=== PATIENT | male | born 1955 | race Caucasian/White ===

== ENCOUNTER 2024-03-23 07:30 | Day surgery (SDC) | payer MEDICARE, SELFPAY ==
[2024-03-23] VITALS (14 sets, daily range): BP systolic 90–113; BP diastolic 55–67; BMI 36.4
[2024-03-23] MEDS: NSS 365 ML IV (08:23)
--- NOTE | 2024-03-23 11:18 | ITS.CL.CATH ---
[facility] - Catheterization
Cardiac Catheterization
Procedure Report:
CARDIAC CATHETERIZATION REPORT
Date of Procedure: 03/23/2024
Referring: Aashish Avila D.O.
Indication: Severe aortic valve stenosis.
PROCEDURE:
1. Right heart catheterization.
2. Left heart catheterization.
3. Coronary angiography.
4. Aortic valve interrogation.
ACCESS:
6 Cypriot right radial artery.
5 Cypriot right antecubital vein.
CATHETERS:
1. 5 Cypriot balloon wedge.
2. 5 Cypriot JL 3.5.
3. 5 Cypriot multipurpose.
4. 6 Cypriot Fernando dual-lumen pigtail catheter.
HEMODYNAMIC DATA
Weight (kg): 121.8
AO (s/d/x mmHg): 101/70/84
LV (s/x mmHg): 157/23
PCWP (a/v/x mmHg): 28/32/23
PA (s/d/x mmHg): 43/24/30
RV (s/x mmHg): 43/16
RA (a/v/x mmHg): 17/18/16
SVC SvO2 (%): 69.6
PA SvO2 (%): 69.1
SaO2 (%): 95.2
Hbg (g/dL): 12.7
CO (L/min): 6.04
CI (L/min/m2): 2.50
TPG (mmHg): 7
PVR (Avila Units): 1.16
SVR (dynes*seconds*cm^-5): 901
AVO2 Diff (Volume %): 4.51
AV gradient (x, mmHg): 44.9
AV area (cm2): 0.86
LEFT VENTRICULOGRAPHY: Not performed.
CORONARY ANGIOGRAPHY
Dominance: Right.
Left Main: Normal size, bifurcating vessel. There is no coronary artery disease.
LAD: Large size vessel giving rise to 2 diagonals before wrapping around the apex. There is no coronary artery disease.
Ramus: Congenitally absent.
Circumflex: Large size, nondominant vessel giving rise to 2 obtuse marginals before terminating as a left posterolateral branch. There is no coronary artery disease.
RCA: Normal size, dominant vessel with a low, anterior takeoff. Prior cardiac catheterization required multipurpose catheter as the JR catheter would continuously cannulate the conus branch. Multipurpose catheter used for this engagement.
There is no coronary artery disease.
INTERVENTIONS
None.
Closure Device: Vascular band for the right radial artery, manual pressure for the right antecubital vein.
Radiation dose (mGy): 466.60
DAP (cm2.Gy): 31.9020
Fluoroscopy time (minutes): 5.9
Sedation time (minutes): 12
CONCLUSIONS:
1. Right dominant circulation with a low, anterior takeoff of the right coronary artery requiring a multipurpose catheter for engagement, but no coronary artery disease in either the right or left system.
2. Severe aortic valve stenosis.
3. Moderately elevated filling pressures (LVEDP = 23 mmHg, PCWP = 23 mmHg at 121.8 kg).
4. Mild pulmonary hypertension, WHO group 2.
RECOMMENDATIONS:
1. Expectant management after cardiac catheterization via right rate approach.
2. Limited weight bearing on the right wrist for one week.
3. Referral to CT surgery for evaluation of surgical aortic valve replacement and evaluation of the ascending aorta.
Copy to: Juan Meraz M.D., Aashish Avila D.O., Elba AltamiranoO.
Aashish Avila, DO, FACC, FACP
== END 2024-03-23 13:00 | disposition home or self-care (01) ==
LOC: CATH 07:30
PROVIDERS: ATTENDING PHYSICIAN Internal Medicine Cardiovascular Disease; CONSULT PHYSICIAN Thoracic Surgery (Cardiothoracic Vascular Surgery); FAMILY PHYSICIAN Family Medicine
DX: I35.0 Nonrheumatic aortic (valve) stenosis (principal); R06.00 Dyspnea, unspecified; I27.22 Pulmonary hypertension due to left heart disease; E78.2 Mixed hyperlipidemia; I45.10 Unspecified right bundle-branch block; Z85.47 Personal history of malignant neoplasm of testis; E66.9 Obesity, unspecified; Z68.36 Body mass index [BMI] 36.0-36.9, adult; Z79.82 Long term (current) use of aspirin
CPT/HCPCS: 93460; C1769; C1894

== ENCOUNTER → 2024-05-14 07:46 | Outpatient (REF) | payer MEDICARE, SELFPAY | LOC: RAD 07:46 | PROVIDERS: ATTENDING PHYSICIAN Thoracic Surgery (Cardiothoracic Vascular Surgery); FAMILY PHYSICIAN Family Medicine | DX: I77.810 Thoracic aortic ectasia (principal); I35.0 Nonrheumatic aortic (valve) stenosis; Z01.818 Encounter for other preprocedural examination | CPT/HCPCS: 71275; Q9967 ==

== ENCOUNTER 2024-05-18 04:52 | Inpatient (IN) | payer MEDICARE, SELFPAY ==
[2024-05-05 08:44] VITALS: BMI 36.4
[2024-05-05 09:11] LABS: Urine Albumin Negative (Neg - Trace); Urine Bilirubin Negative (Negative); Urine Character Clear (Clear); Urine Color Yellow; Urine Glucose Negative (Negative); Urine Ketone Negative (Negative); Urine Leukocyte Trace (Negative); Urine Nitrite Negative (Negative); Urine Occult Blood Negative (Negative); Urine Urobilinogen Negative (Neg - 1+)
[2024-05-05 09:13] LABS: % Basophils 0.3 % (0-2); % Eosinophils 3.3 % (0-6); % Immature Granulocytes 0.3 % (0-0.5); % Lymphocytes 26.1 % (20.5-51.1); Absolute Eosinophils 0.1 10^3/uL (0-0.7); Absolute Monocytes 0.4 10^3/uL (0.1-0.6); Absolute Neutrophils 2.4 10^3/uL (1.4-6.5); Hematocrit 36.3 % (39.0-52.0); Hemoglobin 12.4 g/dL (13.0-18.0); Mean Corp Hgb Conc. 34.2 g/dL (33.0-37.0); Mean Corpuscular Hgb 30.5 pg (27.0-31.0); Mean Corpuscular Volume 89.4 fL (80.0-94.0); Mean Platelet Volume 9.7 fL (7.4-10.4); Nucleated Red Blood Cells % 0 % (-); Platelet Count 145 10^3/uL (130-400); Red Blood Cell Count 4.06 10^6/uL (4.70-6.10); Red Cell Dist. Width 13.2 % (11.5-14.5)
[2024-05-05 09:21] LABS: Urine White Cell 0-2 /HPF (0-5)
[2024-05-05 09:22] LABS: Urine Red Blood Cell 0-2 /HPF (0-2)
[2024-05-05 09:23] LABS: INR 1.04; PT 13.5 Sec (11.4-14.6)
[2024-05-05 09:23] LABS: Urine Squamous Cell 0-2 /LPF (Few)
[2024-05-05 09:24] LABS: APTT 31.3 Sec (23.4-35.0)
[2024-05-05 09:29] LABS: ALT (SGPT) 36 U/L (0-50); AST (SGOT) 30 U/L (17-59); Albumin 3.9 g/dl (3.5-5.0); Alkaline Phosphatase 67 U/L (38-126); Blood Urea Nitrogen 25 mg/dl (9-20); Calcium 9.2 mg/dl (8.4-10.2); Carbon Dioxide 28 mmol/L (22-30); Chloride 99 mmol/L (98-107); Direct Bilirubin 0.3 mg/dl (0.0-0.4); Estimated Creatinine Clearance > 125 ml/min; Glucose 101 mg/dl (70-99); Potassium 4.3 mmol/L (3.5-5.1); Sodium 137 mmol/L (135-145); Total Bilirubin 0.6 mg/dl (0.2-1.3); Total Protein 6.5 g/dl (6.3-8.2); eGFR > 60.00
--- NOTE | 2024-05-05 11:12 | CM ---
spoke to pt in room, he is prev indep, lives with his in a 1 story duplex with 3 steps to enter. he denies any dme's. he is agreeable to a f/u visit fro the ct transitional care nurse after dc. he has the cardiac educ book, soap and
instructions. cm role explained and all questions answered. plan is for dc to home when medically stable.
[2024-05-05 12:23] LABS: Glycohemoglobin (HgbA1c) 6.1 % (4.0-5.6)
[2024-05-18] VITALS (11 sets, daily range): BP systolic 86–116; BP diastolic 58–78; BMI 35.6
--- NOTE | 2024-05-18 06:20 | PTCARENOTE ---
Patient arrived to room 2261 with enterprise security architect. Steady gait. Patient A+A+Ox3. No neurological deficits noted. No c/o pain or discomfort. Patient confirmed NPO status after midnight. Patient confirmed taking 4% Chlorhexidine shower last
night and this morning. Patient clipped and prepped per protocol. G wipes. Admission questions and medication reconciliation completed. Pre-op medications administered. Dr. Meraz arrived to talk with patient. Patient resting in bed. On
call to OR.
[2024-05-18] MEDS: BACTROBAN 2% OINTMENT 1 APPLIC NASAL ×2 (06:24→19:54)
[2024-05-18] MEDS: LOPRESSOR 25 MG PO (06:24)
[2024-05-18] MEDS: MAGNESIUM OXIDE 500 MG PO (06:26)
[2024-05-18] MEDS: PROTONIX 40 MG PO (06:26)
--- NOTE | 2024-05-18 06:33 | W.CVOR.SURPR ---
CVOR Surgeon Immed Pre Op
-
I have examined this patient prior to performance of the scheduled procedure.
The patient's condition is unchanged from the time of the dictated/written History and
Physical and the patient is able to undergo the scheduled procedure.
[2024-05-18 08:09] LABS: Urine Albumin Negative (Neg - Trace); Urine Bilirubin Negative (Negative); Urine Character Clear (Clear); Urine Color Yellow; Urine Glucose Negative (Negative); Urine Ketone Negative (Negative); Urine Leukocyte Negative (Negative); Urine Nitrite Negative (Negative); Urine Occult Blood Trace (Negative); Urine Urobilinogen Negative (Neg - 1+)
[2024-05-18 08:16] LABS: ACT+ - POC 98 Seconds (82-134)
[2024-05-18 08:18] LABS: Glucose - POC 109 mg/dl (65-99); HCO3 - POC 26 mmol/L (21-29); Hematocrit - POC 35 % PCV (42-52); Hemodilution- POC No; Hemoglobin Calculated - POC 11.8; Ionized Calcium - POC 1.21 mmol/L (1.12-1.27); O2 Saturation %Calculated-POC 99.8 5 (92-96); PCO2 - POC 40 mmHg (35-45); PO2 - POC 239 mmHg (80-100); POC Comment PRE; Potassium - POC 3.7 mmol/L (3.6-5.0); Sodium - POC 140 mmol/L (135-145); pH - POC 7.41 (7.35-7.45)
[2024-05-18 08:33] LABS: Urine Squamous Cell 0-2 /LPF (Few)
[2024-05-18 08:34] LABS: Urine White Cell 0-2 /HPF (0-5)
--- NOTE | 2024-05-18 09:06 | CM ---
pt in OR today, cm to follow
[2024-05-18 09:12] LABS: ACT+ - POC 940 Seconds (82-134)
[2024-05-18 09:49] LABS: B.E. - POC 4.5 mmol/L; Glucose - POC 123 mg/dl (65-99); HCO3 - POC 28 mmol/L (21-29); Hematocrit - POC 29 % PCV (42-52); Hemodilution- POC Yes; Hemoglobin Calculated - POC 9.8; Ionized Calcium - POC 1.07 mmol/L (1.12-1.27); PCO2 - POC 37 mmHg (35-45); PO2 - POC 348 mmHg (80-100); POC Comment CPB; Potassium - POC 4.7 mmol/L (3.6-5.0); Sodium - POC 138 mmol/L (135-145); pH - POC 7.48 (7.35-7.45)
[2024-05-18 09:55] LABS: ACT+ - POC 778 Seconds (82-134)
[2024-05-18 10:34] LABS: ACT+ - POC 631 Seconds (82-134)
[2024-05-18 10:35] LABS: B.E. - POC 3.2 mmol/L; Glucose - POC 153 mg/dl (65-99); HCO3 - POC 27 mmol/L (21-29); Hematocrit - POC 28 % PCV (42-52); Hemodilution- POC Yes; Hemoglobin Calculated - POC 9.6; Ionized Calcium - POC 1.13 mmol/L (1.12-1.27); O2 Saturation %Calculated-POC 99.8 5 (92-96); PCO2 - POC 39 mmHg (35-45); PO2 - POC 214 mmHg (80-100); POC Comment CPB; Potassium - POC 4.8 mmol/L (3.6-5.0); Sodium - POC 138 mmol/L (135-145); pH - POC 7.46 (7.35-7.45)
--- NOTE | 2024-05-18 11:04 | CON.INTV ---
Consultation
Consultation Request
Date/Time Consultation Requested: 05-18-24
Date/Time Consultation Performed: 05-18-24
Requesting Provider: Dr Meraz
Performing Provider: Dr Hoffman
Reason for Consultation: s/p AVR and asc Ao replacement
Medical History
-
Chief Complaint: s/p AVR
History of Present Illness:
Mr. Johnny Giraldo is a 68/M adm 05-18 for planned AVR.
Known h/o severe with SELINA 0.86 and no evidence of CAD on [facility].
Seen at office by Dr Meraz, rec AVR and potentially asc Ao replacement.
Seen at CVICU, on MV, recovering from anesthesia. Seen in presence of RESTAURANT GENERAL MANAGER
Past Medical History
Past Medical History: Other (see A&P for PMH/PSH)
Social History
Tobacco: Non-smoker
Alcohol: Occasional
Drug: None
Personal:
Living: With Family
Employment: Retired
Family History
Family History: CAD (F: AMI at 53)
Allergies / Home Medications
Allergies
Allergy/AdvReac Type Severity Reaction Status Date / Time
erythromycin base Allergy Intermediate Nausea Verified 05/18/24 06:13
Penicillins Allergy Rash Verified 04/29/24 12:14
Sulfa (Sulfonamide Allergy Rash Verified 04/29/24 12:14
Antibiotics)
azithromycin AdvReac Nausea Verified 04/29/24 12:14
Home Medications
�Medication �Instructions �Recorded �Confirmed �Last Taken �Type
aspirin 81 mg chewable tablet 81 mg PO DAILY 12/07/21 05/18/24 05/17/24 09:00 History
81 MG
atorvastatin 40 mg tablet 40 mg PO DAILY 12/07/21 05/18/24 05/17/24 22:00 History
40 MG
fexofenadine 180 mg tablet 180 mg PO DAILY 12/07/21 05/18/24 05/17/24 09:00 History
180 mg
phenylephrine HCl 10 mg tablet 10 mg PO TIDPRN PRN allergies/post 12/07/21 05/18/24 05/17/24 22:00 History
(Sudafed PE) nasal drip 10 mg
tadalafil 5 mg tablet 5 mg PO DAILY@1600 12/07/21 05/18/24 05/15/24 22:00 History
5 mg
valacyclovir 500 mg tablet 500 mg PO DAILY 12/07/21 05/18/24 05/17/24 09:00 History
500 mg
coenzyme Q10 200 mg capsule (Co 200 mg PO DAILY 03/23/24 05/18/24 05/17/24 22:00 History
Q-10) 200 mg
metoprolol succinate 25 mg 25 mg PO DAILY 03/23/24 05/18/24 05/17/24 22:00 History
tablet,extended release 24 hr 25 mg
sfoudkes-vky-pkasl acid 0.4 1 tab PO DAILY 03/23/24 05/18/24 05/17/24 09:00 History
mg-lycopene 300 mcg-lutein 250 mcg 1 Tab
tablet (Centrum Silver)
omega 0-lrs-fke-fish oil 1,200 mg 1 cap PO DAILY 03/23/24 05/18/24 05/17/24 09:00 History
(144 mg-216 mg) capsule (Fish Oil) 1200 mg
tamsulosin 0.4 mg capsule 0.4 mg PO DAILY 03/23/24 05/18/24 05/15/24 22:00 History
0.4mg
Medical Cannibus 1 dose PO PRN PRN anxiety, pain 04/29/24 05/18/24 05/08/24 19:00 History
1 joint
ibuprofen 200 mg tablet 200 mg PO Daily 05/18/24 05/18/24 05/17/24 09:00 History
200 mg
Review of Systems
-
Unable to Obtain full review of systems at this time due to: Patient Intubation
Vitals / Labs / Diagnostic Testing
Vital Signs
Temp Pulse Resp BP Pulse Ox
98.8 F 80 16 104/70 98
05/18/24 05:35 05/18/24 06:24 05/18/24 05:35 05/18/24 06:24 05/18/24 05:35
Lab Data
05/05/24 08:56
05/05/24 08:56
Diagnostic Testing:
Physical Exam
-
HEENT: Normocephalic, Moist Mucous Membranes and Other (YARELY)
Cardiovascular: Regular Rhythm, Peripheral Edema (n) and Other (RIJ cordis)
Respiratory: Clear and Non-Labored Respirations
GI: Soft and Non Distended
Neurology: Other (sedated)
Skin: Warm
General: Respiratory Distress (n)
Assessment
-
Assessment:
Mr. Johnny Giraldo is a 68/M adm 05-18 for planned AVR. Known h/o severe with SELINA 0.86 and no evidence of CAD on [facility]. Seen at office by Dr Meraz, rec AVR and potentially asc Ao replacement. Seen at CVICU, on MV, recovering from anesthesia. Seen
in presence of RESTAURANT GENERAL MANAGER
Impression:
Moderate to severe , SELINA 0.86 (negative [facility] 03-23-24)
S/p AVR and asc Ao replacement 05-18
Conditions SPECIALTY DEVELOPMENT CONSULTANT:
Prediabetes
COVID pneumonia
HLD
BPH
H/o testicular cancer
Nonsmoker
Plan:
Ventilator settings reviewed
SIMV: 14-550-5-0.4 (POx 100%)
FiO2 will be weaned
Minute ventilation will be adjusted
Arterial blood gases will be monitored
Spontaneous breathing trial will be attempted with hopeful extubation after anesthesia/sedation wear off
Postop CXR: portable, ETT, RIJ line, sternal wiring, chest tubes
Normal preop spirometry 05-05-24
Pressors/antihypertensive/inotropes/diuretics will be provided as needed
Monitor chest tube output
Monitor hemoglobin
Monitor platelet count and coags
Transfuse blood product if needed
CT surgery following chest tubes
Monitor blood sugar
Insulin drip per protocol
Aspiration precautions
VAP prevention protocol
DVT prophylaxis
Early nutrition
Early mobilization
Critical care time: 35 min
[2024-05-18 11:18] LABS: ACT+ - POC 558 Seconds (82-134)
[2024-05-18 11:18] LABS: B.E. - POC 2.7 mmol/L; Glucose - POC 119 mg/dl (65-99); HCO3 - POC 28 mmol/L (21-29); Hematocrit - POC 28 % PCV (42-52); Hemodilution- POC Yes; Hemoglobin Calculated - POC 9.6; Ionized Calcium - POC 1.15 mmol/L (1.12-1.27); PCO2 - POC 44 mmHg (35-45); PO2 - POC 362 mmHg (80-100); POC Comment CPB; Potassium - POC 4.2 mmol/L (3.6-5.0); Sodium - POC 141 mmol/L (135-145); pH - POC 7.41 (7.35-7.45)
[2024-05-18 11:49] LABS: B.E. - POC 1.5 mmol/L; Glucose - POC 115 mg/dl (65-99); HCO3 - POC 26 mmol/L (21-29); Hematocrit - POC 29 % PCV (42-52); Hemodilution- POC Yes; Hemoglobin Calculated - POC 9.7; Ionized Calcium - POC 1.14 mmol/L (1.12-1.27); O2 Saturation %Calculated-POC 99.9 5 (92-96); PCO2 - POC 42 mmHg (35-45); PO2 - POC 281 mmHg (80-100); POC Comment WARM; Potassium - POC 4.6 mmol/L (3.6-5.0); Sodium - POC 142 mmol/L (135-145); pH - POC 7.41 (7.35-7.45)
[2024-05-18 11:53] LABS: ACT+ - POC 498 Seconds (82-134)
[2024-05-18] MEDS: ANCEF 10 IV ×2 (12:14→17:09)
[2024-05-18 12:33] LABS: ACT+ - POC 129 Seconds (82-134)
[2024-05-18 12:35] LABS: B.E. - POC 1.3 mmol/L; Glucose - POC 103 mg/dl (65-99); HCO3 - POC 25 mmol/L (21-29); Hematocrit - POC 29 % PCV (42-52); Hemodilution- POC Yes; Hemoglobin Calculated - POC 9.7; Ionized Calcium - POC 1.28 mmol/L (1.12-1.27); PCO2 - POC 36 mmHg (35-45); PO2 - POC 488 mmHg (80-100); POC Comment POST; Potassium - POC 3.9 mmol/L (3.6-5.0); Sodium - POC 142 mmol/L (135-145); pH - POC 7.46 (7.35-7.45)
--- NOTE | 2024-05-18 13:06 | W.IMMPOSTOP ---
Addendum entered and electronically signed by Juan Meraz MD 05/18/24 14:15:
[id number]
Original Note:
Surgical Immed Post Op Note
-
CARDIAC SURGERY OPERATIVE NOTE:
Preoperative Dx:
Bicuspid aortic valve w/ severe aortic stenosis
Ascending aortic aneurysm
Postoperative Dx:
Same
Procedures:
1) AVR (#25 Inspiris RESILIA)
2) Ascending aortic replacement w/ 30mm Hemashield [place] Graft
Surgeon:
Juan Meraz M.D.
Assistants:
Nuha Diego P.A.-C.; orthopedic physician assistant throughout, closure
Effie Talley P.A.-C.; orthopedic physician assistant during opening/cannulation, closure
Anesthesia:
Effie Enrique C.R.N.A. and Hira Herndon M.D.
Perfusion:
Rose ArellanoP.; XC: 160, XC: 140
Findings:
True bicuspid AV w/ fusion of R & LCCs
Coronary ostia in normal anatomic position, but RM coronary slightly lower (~8mm from annulus)
Aortic root was not significantly distended
Ascending aorta was relatively normal in gross appearance, but was thin and dilated to 4.7cm+
AVR performed w/ 15 interrupted, pledgetted valve sutures & CorKnot device
Ascending replacement performed w/ 30mm Hemashield [place] graft w/ circumferential felt at prox/distal anastomoses
Spontaneous NSR almost immediately follow XC removal - maintained throughout
Normal biventricular function, well seated AVR w/o PVL/AI, mean gradient 5mmHg under GA
Complications:
None
Implant:
[employer] INSPIRIS RESILIA, 25mm Model [id number], SN [id number]
Hemashield [place] 30mm graft; LOT [id number], SN [id number]
Epicardial V-wires x 2
CT x 3
Sternal wires x 5
Sternal 'X' plate and 'square' plate secured w/ 12 - 16mm screws
Condition:
68 sinus w/ PACs, 95/56, 45/28, CVP 25, 100%
GTTS: levo 2, precedex 0.5, insulin 0.5
Stable/guarded to CVICU
SGC removed
[2024-05-18] MEDS: NOVOLOG FLEXPEN SC ×2 (13:07→17:09)
[2024-05-18] MEDS: NEURONTIN PO ×2 (13:07→17:09)
[2024-05-18] MEDS: LIPITOR PO (13:07)
[2024-05-18] MEDS: TYLENOL PO ×2 (13:08→20:18)
--- NOTE | 2024-05-18 13:45 | PTCARENOTE ---
received patient from CVOR, sedated and placed on vent by PAN TANK WORKER. V wires present and connected to box but turned off. NSR with PACs. HR 60s. CTx3 (3Mediastinal tubes to 2 vacs) draining red. no air leaks /crepitus. SIMV 14/550/+5 60% on vent. pulse ox
100%. out on insulin per protocol and precedex. arias draining clear yellow urine. bowel sounds hypoactive. pulses weakly palpable with trace lower extrem edema. ekg and cxr done, labs drawn and sent. will continue to monitor.
[2024-05-18 13:49] LABS: Glucose - Point of Care 118 mg/dl (70-99)
[2024-05-18 13:57] LABS: B.E. -0.5 mmol/L; HCO3 24.2 mmol/L (21-28); Ionized Calcium 1.18 mMOL/L (1.15-1.33); O2 Saturation % 99.8 % (94-98); PCO2 39 mmHg (35-48); PO2 184 mmHg (83-108); Sodium 136 mMOL/L (136-145)
[2024-05-18 14:00] LABS: Mixed Venous O2 Saturation 71.1 %
--- NOTE | 2024-05-18 14:00 | W.PN.CD ---
Addendum entered and electronically signed by Thomas Perrin MD 05/18/24 14:30:
I saw and examined the patient.
The FILLING STATION EQUIPMENT MECHANIC's note was reviewed and I agree with the note.
remains vented post op and on low dose levo
- wean pressors as tolerated
- wean vent as per protocol
Original Note:
Today's Communication / Plan
-
-close post-op monitoring and care per CT surgery/CVICU protocol
Impression / Plan
-
Assessment/Plan: 68 y/o male (patient of Dr. Avila) with dyslipidemia, RBBB, severe , and aortic root dilatation who is now s/p AVR and ascending aortic replacement.
Bicuspid AV with severe , ascending aortic aneurysm:
-AVR (#25 Inspiris RESILIA) and ascending aortic replacement w/ 30mm Hemashield [place] Graft with Dr. Meraz 05/18/24
-post-op EKG, NSR with RBBB stable
-EF normal on intra-op CORONA
-intubated and sedated post-op
-CXR pending
-on insulin and precedex
RBBB: chronic, stable
Dyslipidemia:
-continue statin
Physical Exam
Vital Signs/Labs
Vital Signs
Temp Pulse Resp BP Pulse Ox
98.8 F 80 16 104/70 98
05/18/24 05:35 05/18/24 06:24 05/18/24 05:35 05/18/24 06:24 05/18/24 05:35
05/17/24 05/18/24 05/19/24
06:59 06:59 06:59
Actual Weight 119 kg
PT 13.5 Sec (11.4-14.6) 05/05/24 08:56
INR 1.04 05/05/24 08:56
APTT 31.3 Sec (23.4-35.0) 05/05/24 08:56
Physical Exam
Constitutional: No acute distress
EENT: Anicteric
Cardiovascular: Rhythm & rate is regular
Respiratory: Other (intubated/ventilated)
Neuro/Psych: Other (sedated)
Other: Skin (midsternal incision dressing intact)
Data Reviewed
-
Date of Service: May 18, 2024
EKG: Tracing Personally Visualized and interpreted ( RBBB)
Labs: Labs Reviewed by me
[2024-05-18 14:07] LABS: Hemoglobin 10.4 g/dL (13.0-18.0); Platelet Count 103 10^3/uL (130-400)
[2024-05-18] MEDS: NSS 500 IV (14:07)
[2024-05-18 14:17] LABS: INR 1.59; PT 18.8 Sec (11.4-14.6)
[2024-05-18 14:18] LABS: APTT 34.7 Sec (23.4-35.0)
[2024-05-18 14:27] LABS: Blood Urea Nitrogen 19 mg/dl (9-20); Estimated Creatinine Clearance > 125 ml/min; Glucose 107 mg/dl (70-99); Magnesium 2.4 mg/dl (1.6-2.3)
[2024-05-18 14:59] LABS: Glucose - Point of Care 126 mg/dl (70-99)
--- NOTE | 2024-05-18 15:22 | W.PN.UPDATE ---
Update Note
Progress Note Update
68 year old male electively admitted 05/18 for aortic valve replacement
IV fluids: 1000
U.O.:� 600
Blood:� none
Wires:� V-wires
Inotropes:�
Pressors:� Levophed off on arrival d/t MAP 93
Sedatives:� Precedex
�
NEURO: sedated on precedex, pupils +2mm B/L
RESP: #8OT @23cm> 550/60%/14/5. Lungs clear B/L. 2 mediastinal (10cc on arrival) and separate 1 mediastinal (5cc on arrival) chest tubes to -20cm suction. Sanguineous drainage
CV: RRR +S1, S2, no S3, no�rub, no murmur. Dermabond to median sternotomy. RIJ (Bostwick removed in OR)
ABD: round, soft, no BS
EXT: no edema, +2/4 DP pulses B/L, no femoral bruit, left radial A-line intact
: Shaffer with clear yellow urine
�
A/P: POD #0 s/p AVR (#25 Inspiris RESILIA) and Ascending aortic replacement w/ 30mm Hemashield [place] Graft due to Bicuspid aortic valve w/ severe aortic stenosis and Ascending aortic aneurysm
CORONA: EF�60%, no AI/PVL. AV gradient 9/5mmHg, mild TR
- wean and extubate
- will need instruction regarding antibiotic prophylaxis for dental and invasive procedures
�
# acute surgical blood loss anemia-expected
- trend CBC
�
# Prediabetes (A1C 6.1)
- insulin infusion x 24h
- will need diabetic diet
�
# Hyperlipidemia
- resume�Lipitor
# BPH
- resume Flomax/tadalafil as BP permits
--- NOTE | 2024-05-18 15:28 | PTCARENOTE ---
placed on CPAP wean by SPECIAL EVENTS PLANNER.
--- NOTE | 2024-05-18 15:32 | PTCARENOTE ---
periods of apnea noted. placed back on SIMV
[2024-05-18 16:01] LABS: Glucose - Point of Care 139 mg/dl (70-99)
[2024-05-18] MEDS: PACERONE PO (17:09)
[2024-05-18 17:16] LABS: Glucose - Point of Care 118 mg/dl (70-99)
[2024-05-18 17:21] LABS: B.E. -1.1 mmol/L; HCO3 21.6 mmol/L (21-28); Ionized Calcium 1.14 mMOL/L (1.15-1.33); O2 Saturation % 99.8 % (94-98); PCO2 29 mmHg (35-48); PO2 184 mmHg (83-108); Potassium 3.7 mMOL/L (3.5-5.1); pH 7.48 (7.35-7.45)
[2024-05-18] MEDS: CALCIUM CHLORIDE 10% SYRINGE 50 MG IV (17:25)
[2024-05-18] MEDS: KCL 50 IV ×2 (17:25→18:21)
[2024-05-18] MEDS: CALCIUM CHLORIDE 10% SYRINGE 50 ML IV (17:25)
[2024-05-18 17:31] LABS: Hemoglobin 10.8 g/dL (13.0-18.0); Platelet Count 125 10^3/uL (130-400)
--- NOTE | 2024-05-18 17:56 | PTCARENOTE ---
multiple periods of apnea. remains on CPAP but needing to arouse frequenrtly. Easily starts breathing on his own when u call his name. at bedside. will continue ot monitor.
[2024-05-18] MEDS: ANCEF 5 IV (18:08)
--- NOTE | 2024-05-18 18:08 | RESPNOTE ---
18:05 Extubated patient and placed on 6L n.c. 100%
[2024-05-18 18:13] LABS: Glucose - Point of Care 108 mg/dl (70-99)
[2024-05-18] MEDS: LOW STRENGTH ASPIRIN 81 MG PO (18:54)
[2024-05-18] MEDS: SENOKOT-S 1 TABLET PO (19:53)
[2024-05-18] MEDS: OFIRMEV 100 IV (19:53)
--- NOTE | 2024-05-18 20:00 | PTCARENOTE ---
assumed care of pt from previous RN. pt A&Ox4, resting in bed at time of assessment. R IJ cordis w/ KVO. L radial a-line, leveled, zeroed, flushed. PIV intact. glycemic protocol followed. temp epicardial v-wires, plugged in, pulse generator off. SR
w/ PACs on tele-monitor, rates in the 60s. CT x3 (mediastinal x3) to -20cm wall suction, draining sanguineous drainage. 4 L NC, POX 97%. abd s/n, hypoactive BS. arias catheter draining clear, yellow urine. sternal incision w/ aquacell, CDI. see
worklist for complete nursing assessment, interventions, VS, and I&Os.
[2024-05-18 20:10] LABS: Glucose - Point of Care 124 mg/dl (70-99)
[2024-05-18] MEDS: CALCIUM CHLORIDE 10% SYRINGE 60 MG IV (20:26)
[2024-05-18] MEDS: ZOFRAN 4 MG IV (21:06)
[2024-05-18 22:09] LABS: Glucose - Point of Care 100 mg/dl (70-99)
[2024-05-18] MEDS: NEURONTIN 100 MG PO (23:00)
[2024-05-18] MEDS: PACERONE 200 MG PO (23:08)
[2024-05-19] VITALS (28 sets, daily range): BP systolic 82–119; BP diastolic 50–72; PULSE 62–65; O2SAT 99; BMI 36.1
--- NOTE | 2024-05-19 | PTCARENOTE ---
assessment remains unchanged. VSS. CT drainage WNL. no c/o pain at this time.
[2024-05-19 00:07] LABS: Glucose - Point of Care 131 mg/dl (70-99)
[2024-05-19 01:53] LABS: Glucose - Point of Care 98 mg/dl (70-99)
--- NOTE | 2024-05-19 03:27 | W.PN.CT ---
Today's Communication / Plan
-
Plan:
-No major issues overnight. Hemodynamically and neurologically intact
-Successfully extubated on 05/18 @ 1805
-Weaned off of Levophed gtt, remains on insulin gtt per protocol. Consider holding AM dose of Lopressor given soft BP overnight
-U/O since OR 1090 mL
-Cont. current meds (ASA,Lipitor, Amiodarone, held Lopressor last night d/t hypotension)
-Monitor chest tube output: 2meds 100/280, 1med 115/200
-No [place], D/C'd a-line this AM @ 0445
-Consider keeping arias another day given hx of BPH on Flomax and Tadalafil @ home, to avoid postop urinary retention
-Telemetry phase today once off insulin gtt per protocol
-Maintain cordis
-Maintain temporary PW (will cut before d/c home)
-Wean off of O2 as tolerated
-Encourage use of IS
-OOB into chair/Ambulate
Assessment / Plan
-
Assessment:
-S/P AVR (#25 Inspiris RESILIA)/Ascending aortic replacement (30mm Hemashield [place] Graft), by Dr. Meraz, 05/18/24, pod#1
-Bicuspid aortic valve w/ severe aortic stenosis
-Ascending aortic aneurysm (4.1 cm)
-LVEF 60% per intraop
-Chronic RBBB
-HTN
-HLD
-Prediabetes (HgbA1C 6.1)
-Class 2 obesity (BMI 35.6)
-ROBERT (does not use CPAP @ home)
-BPH (on Flomax and Tadalafil @ home)
-Hx Testicular Ca
-Seasonal allergies
-Acute postop blood loss/Anemia (stable without transfusion)
-Acute postop thrombocytopenia (stable without active bleed)
-Acute postop atelectasis
-Acute postop hypovolemia with subsequent hypervolemia
Discussed patient care with: Cardiology, Nursing, Respiratory Therapy, Pharmacy and Care Team
Subjective
Procedure
-S/P AVR (#25 Inspiris GUILLEA)/Ascending aortic replacement (30mm Hemashield [place] Graft), by Dr. Meraz
-
Date of Service: May 19, 2024
Pt c/o incisional pain, otherwise feels well
Objective Data
-
PT 18.8 Sec (11.4-14.6) H 05/18/24 13:39
INR 1.59 05/18/24 13:39
APTT 34.7 Sec (23.4-35.0) 05/18/24 13:39
Vital Signs
Vital Signs
Temp Pulse Resp BP Pulse Ox
98.7 F 64 10 114/72 100
05/19/24 03:00 05/19/24 03:00 05/19/24 03:00 05/19/24 03:00 05/19/24 03:00
CT Intake/Output/Weight
05/18/24 05/18/24 05/19/24
06:59 18:59 06:59
Intake Total 121.6 / 496.2 374.6 / 496.2
Output Total 920 / 1435 515 / 1435
Balance -798.4 / -938.8 -140.4 / -938.8
SaO2: 98 (2L)
Physical Exam
-
General: Awake, Oriented and AOx3
Cardiovascular: Regular rate & rhythm, No Murmurs, Rub and No Gallop
Respiratory: Decreased Breath Sounds (at bases, otherwise clear)
Sternum: Stable
Incision: Clean, Dry, Intact and Dressing Intact
Extremities: No Edema
Data Reviewed
-
Lab Results: Results Reviewed
Medications: Active Meds Reviewed
Chest X-Ray: Report Reviewed and Image Reviewed
ECG: Report Reviewed and Image Reviewed
[2024-05-19 04:21] LABS: Glucose - Point of Care 124 mg/dl (70-99)
[2024-05-19 04:28] LABS: Hemoglobin 10.2 g/dL (13.0-18.0); Mean Corp Hgb Conc. 36.4 g/dL (33.0-37.0); Mean Corpuscular Hgb 31.6 pg (27.0-31.0); Mean Corpuscular Volume 86.7 fL (80.0-94.0); Mean Platelet Volume 9.8 fL (7.4-10.4); Platelet Count 108 10^3/uL (130-400); Red Blood Cell Count 3.23 10^6/uL (4.70-6.10); Red Cell Dist. Width 13.6 % (11.5-14.5); White Blood Cell Count 9.1 10^3/uL (4.8-10.8)
--- NOTE | 2024-05-19 04:45 | PTCARENOTE ---
VSS. AM labs collected and sent. EKG completed. a-line d/c.
[2024-05-19 04:59] LABS: Blood Urea Nitrogen 24 mg/dl (9-20); Calcium 8.9 mg/dl (8.4-10.2); Carbon Dioxide 24 mmol/L (22-30); Chloride 107 mmol/L (98-107); Estimated Creatinine Clearance > 125 ml/min; Glucose 111 mg/dl (70-99); Potassium 4.4 mmol/L (3.5-5.1); Sodium 137 mmol/L (135-145); eGFR > 60.00
[2024-05-19] MEDS: TYLENOL 1000 MG PO ×3 (05:24→20:36)
[2024-05-19] MEDS: ANCEF 5 IV ×2 (05:24→10:12)
[2024-05-19 06:12] LABS: Glucose - Point of Care 115 mg/dl (70-99)
--- NOTE | 2024-05-19 07:16 | W.PN.INTV ---
Today's Communication / Plan
Recommendations
IS
Asp precs
HST once recovered from surgery, f/u [facility]MA
Assessment
-
Assessment:
Mr. Johnny Giraldo is a 68/M adm 05-18 for planned AVR. Known h/o severe with SELINA 0.86 and no evidence of CAD on [facility]. Seen at office by Dr Meraz, rec AVR and potentially asc Ao replacement. Seen at CVICU, on MV, recovering from anesthesia. Seen
in presence of CLINICAL ACCOUNT MANAGER
Impression:
Moderate to severe , SELINA 0.86 (negative [facility] 03-23-24)
S/p AVR and asc Ao replacement 05-18
Conditions CISCO CERTIFIED INTERNETWORK EXPERT:
Prediabetes
COVID pneumonia
HLD
BPH
H/o testicular cancer
Nonsmoker
Plan:
Postop CXR: portable, ETT, RIJ line, sternal wiring, chest tubes
Normal preop spirometry 05-05-24
Chest x-ray today reviewed, no acute findings, interval extubation
Pressors/antihypertensive/inotropes/diuretics will be provided as needed
Monitor chest tube output
Monitor hemoglobin
Monitor platelet count and coags
Transfuse blood product if needed
CT surgery following chest tubes
Monitor blood sugar
Insulin drip per protocol
D/w CTSx LICENSING SERVICES CLERK, candidate for HST once recovered from surgery, left [facility] contact information in chart
Aspiration precautions
DVT prophylaxis
Early nutrition
Early mobilization
Respiratory valentino is stable, will sign off, reconsult as needed
Subjective Dataa
Subjective Data
Date of Service:
Date of Service: May 19, 2024
Chief Complaint: Helmet Hat Sweatband Puncher Follow Up
Subjective:
No major events reported overnight
Extubated successfully yesterday afternoon
Lines removed
Chest tubes in position
Check x-ray reviewed with no acute findings
Review of Systems
General: Satisfactory Appetite
HEENT: Dysphagia (n)
Cardiopulmonary: Dyspnea (n), Cough (n), Wheezing (n), Chest Pain (incisional) and Edema (n)
GI: Abdominal Pain (n), Nausea (n) and Vomiting (n)
Neuro: Weakness (n)
Genitourinary: Hematuria (n)
Objective Data
Data Reviewed
Vital Signs / I&O / Oxygen:
Vital Signs
Temp Pulse Resp BP Pulse Ox
99.4 F 67 18 114/67 98
05/19/24 07:00 05/19/24 06:00 05/19/24 05:45 05/19/24 06:00 05/19/24 07:00
Intake and Output
05/18/24 05/19/24 05/20/24
06:59 06:59 06:59
Intake Total 553.7 / 566.0 12.3 / 12.3
Output Total 1695 / 1775 80 / 80
Balance -1141.3 / -1209.0 -67.7 / -67.7
SaO2 [CPAP/PSV] 100
SaO2 [SIMV] 100
SaO2 98
Nasal Cannula flow liters per 2
minute
Physical Exam
General: Comfortable
HEENT: Normocephalic and Moist Mucous Membranes
Cardiovascular: Regular Rhythm, Peripheral Edema (n) and Calf Tenderness (n)
Respiratory: Clear, Non-Labored Respirations, Stridor (n) and Chest Tube
GI: Soft, Non Distended and Non Tender
Neurology: Awake, AO x 3 and No Motor Deficits
Skin: Warm
Labs/Micro/Reports
Lab Data
05/19/24 04:16
05/19/24 04:16
Laboratory Results
05/18/24 05/18/24
13:39 17:11
PT 18.8 H
INR 1.59
APTT 34.7
pH 7.40 7.48 H
pCO2 39 29 L
pO2 184 H 184 H
HCO3 24.2 21.6
O2 Delivery Level
[2024-05-19 07:58] LABS: Glucose - Point of Care 102 mg/dl (70-99)
--- NOTE | 2024-05-19 08:00 | PTCARENOTE ---
pt received from previous RN, oriented, OOB in chair. SR w/ frequent PACs on the monitor, HR 70s. SBP 90-110s. V wires in place, pacer box off. +1 LE edema. pt on RA, 97% POX. lungs clear, diminished in bases. IS encouraged. CTx3, no air leak or
crepitus noted. pt abdomen s/n, denies n/v. tolerating clears. Shaffer in place. sternal aquacel in place, chest tube dressing c/d/i. RIJ cordis maintained. PIV. insulin gtt running per protocol. see worklist for VS, I&O, and assessment.
[2024-05-19] MEDS: NOVOLOG FLEXPEN SC (08:48)
[2024-05-19] MEDS: PACERONE 200 MG PO ×3 (08:51→20:36)
[2024-05-19] MEDS: SENOKOT-S 1 TABLET PO ×2 (08:51→20:36)
[2024-05-19] MEDS: THERAGRAN 1 TABLET PO (08:51)
[2024-05-19] MEDS: LIPITOR 40 MG PO (08:51)
[2024-05-19] MEDS: LOPRESSOR 12.5 MG PO ×2 (08:51→20:36)
[2024-05-19] MEDS: MAGNESIUM OXIDE 500 MG PO ×2 (08:51→20:36)
[2024-05-19] MEDS: PROTONIX 40 MG PO (08:51)
[2024-05-19] MEDS: CLARITIN 10 MG PO (08:51)
[2024-05-19] MEDS: LOW STRENGTH ASPIRIN 81 MG PO (08:51)
[2024-05-19] MEDS: LIDOCAINE 4% PATCH 1 PATCH TOPICAL (08:52)
[2024-05-19] MEDS: NEURONTIN 100 MG PO ×3 (08:52→20:36)
[2024-05-19] MEDS: BACTROBAN 2% OINTMENT 1 APPLIC NASAL ×2 (08:52→20:36)
[2024-05-19 10:10] LABS: Glucose - Point of Care 147 mg/dl (70-99)
[2024-05-19] MEDS: VALTREX 500 MG PO (10:12)
[2024-05-19] MEDS: FLOMAX PO (10:16)
[2024-05-19] MEDS: ROXICODONE 2.5 MG PO ×2 (11:57→17:50)
--- NOTE | 2024-05-19 12:00 | PTCARENOTE ---
pt VSS, no changes in assessment. OOB in chair. at bedside, IS encouraged. V wire insulated. ambulated to hallway w/ CR.
[2024-05-19 12:01] LABS: Glucose - Point of Care 99 mg/dl (70-99)
[2024-05-19] MEDS: NOVOLOG FLEXPEN 4 UNITS SC (12:35)
[2024-05-19] MEDS: NSS IV (13:03)
[2024-05-19 14:08] LABS: Glucose - Point of Care 162 mg/dl (70-99)
--- NOTE | 2024-05-19 14:23 | PTCARENOTE ---
pt placed back to bed to rest. DIRECTOR TRANSITION aware of UO.
[2024-05-19] MEDS: ProAmatine 5 MG PO ×2 (14:28→17:09)
[2024-05-19 16:08] LABS: Glucose - Point of Care 110 mg/dl (70-99)
--- NOTE | 2024-05-19 16:30 | PTCARENOTE ---
pt VSS, no changes in assessment. pt resting between care. DEVELOPMENT TEAM LEAD updated on UO. insulin gtt dc'd as ordered.
--- NOTE | 2024-05-19 17:32 | W.PN.ANS.POP ---
Anesthesia Post Operative
- Anesthesia Post Op Note
Vital Signs Stable-See Nursing Note: Yes
Airway Patent: Yes
Adequate Pain Control: Yes
Change in Mental Status: No
Current Postoperative Nausea & Vomiting: No
Anesthesia Complications: No
General Anesthetic Recall: No
Unplanned Admission: No
Post Op Hydration Adequate: Yes
- -
Patient OOB resting comfortably. No comments, complaints, or questions at this time.
[2024-05-19 17:48] LABS: Glucose - Point of Care 161 mg/dl (70-99)
[2024-05-19] MEDS: NOVOLOG FLEXPEN-MODERATE RESISTANCE 1 UNITS SC (17:51)
--- NOTE | 2024-05-19 18:00 | PTCARENOTE ---
pt OOB to chair for dinner, Roxicodone 2.5mg PO given for pain.
--- NOTE | 2024-05-19 20:00 | PTCARENOTE ---
assumed care of pt from previous RN. pt A&Ox4, resting in chair at time of assessment. SR w/ PACs on tele-monitor, rates in the 60s-70s. no c/o pain at this time. temp epicardial v-wires insulated. POX 98% on RA. CT x3 (mediastinal x3) to -20cm wall
suction, draining serosanguineous drainage. abd s/n, +BS. arias catheter draining clear, yellow urine. sternal incision w/ aquacell, CDI. R IJ cordis w/ KVO. PIV intact. see worklist for complete nursing assessment, interventions, VS, and I&Os.
[2024-05-19 21:40] LABS: Glucose - Point of Care 167 mg/dl (70-99)
[2024-05-20] VITALS (13 sets, daily range): BP systolic 94–137; BP diastolic 52–73; PULSE 67; O2SAT 96–99; BMI 36.8
--- NOTE | 2024-05-20 | PTCARENOTE ---
assessment remains unchanged. VSS. CT drainge WNL. pt requested to sleep in chair.
[2024-05-20 04:31] LABS: Hematocrit 31.4 % (39.0-52.0); Hemoglobin 10.7 g/dL (13.0-18.0); Mean Corp Hgb Conc. 34.1 g/dL (33.0-37.0); Mean Corpuscular Hgb 31.1 pg (27.0-31.0); Mean Corpuscular Volume 91.3 fL (80.0-94.0); Mean Platelet Volume 10.1 fL (7.4-10.4); Platelet Count 135 10^3/uL (130-400); Red Blood Cell Count 3.44 10^6/uL (4.70-6.10); Red Cell Dist. Width 13.6 % (11.5-14.5); White Blood Cell Count 11.2 10^3/uL (4.8-10.8)
[2024-05-20 04:58] LABS: Blood Urea Nitrogen 33 mg/dl (9-20); Carbon Dioxide 27 mmol/L (22-30); Chloride 100 mmol/L (98-107); Estimated Creatinine Clearance > 125 ml/min; Glucose 118 mg/dl (70-99); Magnesium 2.2 mg/dl (1.6-2.3); Potassium 4.7 mmol/L (3.5-5.1); Sodium 132 mmol/L (135-145); eGFR > 60.00
[2024-05-20] MEDS: TYLENOL 1000 MG PO ×3 (06:05→20:55)
[2024-05-20] MEDS: FLEXERIL 5 MG PO (06:17)
--- NOTE | 2024-05-20 06:29 | W.PN.CT ---
Today's Communication / Plan
-
Plan:
-No major issues overnight. Hemodynamically and neurologically intact
-doing well on RA, 98% SpO2
-midodrine initiated yesterday for soft BPs
-U/O 435 in 12hr, 745 in 24hr
-Cont. current meds (ASA,Lipitor, Amiodarone)
-Monitor chest tube output: 2meds 75/210, 1med 25/100
-Consider void trial
-on SSI
-Maintain temporary PW (will cut before d/c home)
-Encourage use of IS
-OOB into chair/Ambulate
-dispo planning
Assessment / Plan
-
Assessment:
-S/P AVR (#25 Inspiris RESILIA)/Ascending aortic replacement (30mm Hemashield [place] Graft), by Dr. Meraz, 05/18/24, pod#2
-Bicuspid aortic valve w/ severe aortic stenosis
-Ascending aortic aneurysm (4.1 cm)
-LVEF 60% per intraop
-Chronic RBBB
-HTN
-HLD
-Prediabetes (HgbA1C 6.1)
-Class 2 obesity (BMI 35.6)
-ROBERT (does not use CPAP @ home)
-BPH (on Flomax and Tadalafil @ home)
-Hx Testicular Ca
-Seasonal allergies
-Acute postop blood loss/Anemia (stable without transfusion)
-Acute postop thrombocytopenia (stable without active bleed)
-Acute postop atelectasis
-Acute postop hypovolemia with subsequent hypervolemia
Discussed patient care with: Care Team
Subjective
Procedure
-S/P AVR (#25 Inspiris RESILIA)/Ascending aortic replacement (30mm Hemashield [place] Graft), by Dr. Meraz
-
Date of Service: May 20, 2024
Objective Data
-
Lab Results
05/19/24 04:16
05/19/24 04:16
PT 18.8 Sec (11.4-14.6) H 05/18/24 13:39
INR 1.59 05/18/24 13:39
APTT 34.7 Sec (23.4-35.0) 05/18/24 13:39
Vital Signs
Vital Signs
Temp Pulse Resp BP Pulse Ox
99.3 F 72 18 113/69 100
05/19/24 17:00 05/19/24 19:00 05/19/24 17:00 05/19/24 17:00 05/19/24 17:00
CT Intake/Output/Weight
05/19/24 05/19/24 05/20/24
06:59 18:59 06:59
Intake Total 432.1 / 566.0 142.8 / 142.8
Output Total 775 / 1775 520 / 520
Balance -342.9 / -1209.0 -377.2 / -377.2
SaO2: 100
Physical Exam
-
General: Awake, Oriented and AOx3
Cardiovascular: Regular rate & rhythm
Respiratory: Clear and Equal
Sternum: Stable
Incision: Clean, Dry and Intact
Extremities: Edema +1
Data Reviewed
-
Lab Results: Results Reviewed
Medications: Active Meds Reviewed
Chest X-Ray: Image Reviewed
Vital Signs / Labs
-
Vital Signs and Labs:
Temp Pulse Resp BP Pulse Ox
98.2 F 64 18 111/64 98
05/20/24 04:00 05/20/24 05:00 05/20/24 04:00 05/20/24 04:18 05/20/24 05:00
05/20/24 04:15
05/20/24 04:15
06/05/19/24 05/19/24
12:00 06:01 07:57
WBC
RBC
Hgb
Hct
MCH
Sodium
BUN
Creatinine
Glucose
POC Glucose 115 H 102 H
Crossmatch IS Only See Detail
05/19/24 05/19/24 05/19/24
10:08 14:06 16:06
WBC
RBC
Hgb
Hct
MCH
Sodium
BUN
Creatinine
Glucose
POC Glucose 147 H 162 H 110 H
Crossmatch IS Only
05/19/24 05/19/24 05/20/24
17:47 21:39 04:15
WBC 11.2 H
RBC 3.44 L
Hgb 10.7 L
Hct 31.4 L
MCH 31.1 H
Sodium 132 L
BUN 33 H
Creatinine 0.5 L
Glucose 118 H
POC Glucose 161 H 167 H
Crossmatch IS Only
--- NOTE | 2024-05-20 08:00 | PTCARENOTE ---
pt received from previous RN, oriented, OOB in chair. SR w/ frequent PACs on the monitor, HR 60s. SBP 100s. V wires in place, insulated. +1 LE edema. pt on RA, 96-99% POX. lungs coarse, diminished in bases. IS encouraged. occasional [employer] cough, chest
PT performed. CTx3, no air leak or crepitus noted. pt abdomen s/n, denies n/v. +BS, +flatus. tolerating diet. Shaffer in place. sternal aquacel in place, chest tube dressing c/d/i. RIJ cordis maintained. PIV. see worklist for VS, I&O, and assessment.
[2024-05-20 08:03] LABS: Glucose - Point of Care 138 mg/dl (70-99)
[2024-05-20] MEDS: NOVOLOG FLEXPEN-MODERATE RESISTANCE SC ×3 (08:05→17:36)
[2024-05-20] MEDS: LIDOCAINE 4% PATCH 1 PATCH TOPICAL (08:18)
[2024-05-20] MEDS: MAGNESIUM OXIDE 500 MG PO ×2 (08:18→20:55)
[2024-05-20] MEDS: FLOMAX 0.400000000000000022 MG PO (08:18)
[2024-05-20] MEDS: MUCINEX 1200 MG PO ×2 (08:19→20:56)
[2024-05-20] MEDS: LOW STRENGTH ASPIRIN 81 MG PO (08:19)
[2024-05-20] MEDS: CLARITIN 10 MG PO (08:19)
[2024-05-20] MEDS: VALTREX 500 MG PO (08:19)
[2024-05-20] MEDS: PROTONIX 40 MG PO (08:19)
[2024-05-20] MEDS: ProAmatine 5 MG PO (08:19)
[2024-05-20] MEDS: LIPITOR 40 MG PO (08:19)
[2024-05-20] MEDS: NEURONTIN 100 MG PO ×3 (08:19→20:56)
[2024-05-20] MEDS: LOPRESSOR 12.5 MG PO (08:19)
[2024-05-20] MEDS: PACERONE 200 MG PO ×3 (08:19→20:56)
[2024-05-20] MEDS: THERAGRAN 1 TABLET PO (08:19)
[2024-05-20] MEDS: SENOKOT-S 1 TABLET PO ×2 (08:20→20:56)
[2024-05-20] MEDS: BACTROBAN 2% OINTMENT 1 APPLIC NASAL ×2 (08:20→20:56)
--- NOTE | 2024-05-20 09:58 | W.PN.CD ---
Today's Communication / Plan
-
Patient comfortable and in a chair
Patient received midodrine for lower BP. Since this is the case , it is reasonable to hold Metoprolol and monitor pressures.
Consider post op echo
Impression / Plan
-
Assessment/Plan: 68 y/o male (patient of Dr. Avila) with dyslipidemia, RBBB, severe , and aortic root dilatation who is now s/p AVR and ascending aortic replacement.
#Bicuspid AV with severe
-Chronic, progressive.
-S/P #25 Inspiris RESILIA SAVR with Dr. Meraz, 05/18/24.
-Continue amiodarone, aspirin,
- post op CT surgery. reaonable to hold BB if BP running lower
#Ascending aortic aneurysm
-Chronic, stable.
-Ascending aortic replacement w/ #30 Hemashield [place] Graft.
#RBBB
-Chronic, stable.
#Dyslipidemia:
-Chronic, stable.
-Continue atorvastatin.
Subjective/Interval History:
Weight up 4 kg from admission (123 kg <-- 119 kg).
SBP's are hovering around 100 mmHg.
MAP consistently > 70 mmHg.
SaO2 98% on RA.
DATA:
Cardiac Catheterization, 03/23/2024:
CONCLUSIONS:
1. Right dominant circulation with a low, anterior takeoff of the right coronary artery requiring a multipurpose catheter for engagement, but no coronary artery disease in either the right or left system.
2. Severe aortic valve stenosis.
3. Moderately elevated filling pressures (LVEDP = 23 mmHg, PCWP = 23 mmHg at 121.8 kg).
4. Mild pulmonary hypertension, WHO group 2.
TTE, 12/04/2023:
CONCLUSIONS
Normal left ventricular size, wall thickness and systolic function. No regional
wall motion abnormalities are seen. LV ejection fraction is 55-60% by visual
assessment. Normal diastolic function.
Normal right ventricular size and function.
Normal atria.
Mitral annular calcification extending onto the thickened mitral valve leaflets
without stenosis.
Calcified and thickened trileaflet aortic valve with moderate, nearing severe
aortic stenosis.
Dilated aortic root at 4.1 cm.
No evidence of pulmonary hypertension.
No significant change since the prior study of 06/03/2023. Aortic valve
gradients are marginally worse. DI remains 0.3-0.4. AVAi is still > 0.4
cm2/m2.
Physical Exam
Vital Signs/Labs
Vital Signs
Temp Pulse Resp BP Pulse Ox
98.1 F 66 18 104/59 97
05/20/24 08:00 05/20/24 08:02 05/20/24 08:00 05/20/24 08:02 05/20/24 09:00
05/19/24 05/20/24 05/21/24
06:59 06:59 06:59
Actual Weight 120.6 kg 123 kg
05/20/24 04:15
05/20/24 04:15
PT 18.8 Sec (11.4-14.6) H 05/18/24 13:39
INR 1.59 05/18/24 13:39
APTT 34.7 Sec (23.4-35.0) 05/18/24 13:39
Magnesium 2.2 mg/dl (1.6-2.3) 05/20/24 04:15
Physical Exam
Constitutional: No acute distress
Cardiovascular: Rhythm & rate is regular and Systolic murmur present
Respiratory: Respiratory effort normal
GI: Soft
Neuro/Psych: Alert
Data Reviewed
-
Date of Service: May 20, 2024
Medical Decision Making: Reviewed Test Results
EKG: Report Reviewed by me
Medical Tests (PFT, Pathology etc): Report Reviewed by me
[2024-05-20] MEDS: LASIX 20 MG IV (10:06)
--- NOTE | 2024-05-20 12:00 | CM ---
Reviewed chart. Met with and Mrs. Giraldo to review discharge plans. He states he is feeling well. He ambulated today 250 feet today. He states prior to admission he resides with his spouse in a one story home with five steps to enter. He
states prior to admission he was independent with ambulation and adls. He states he does not have any DME in the home. He states he has a prescription plan. His spouse will be home to assist in his care if needed. We reviewed a home care visit by
the Cardiothoracic Transitional Care Nurse. He ia agreeable to a home visit. Medical work-up in progress. The discharge plan is to return hoe with his spouse and a home visit by the Cardiothoracic Transitional Care Nurse when stable.
[2024-05-20 12:22] LABS: Glucose - Point of Care 148 mg/dl (70-99)
--- NOTE | 2024-05-20 12:35 | PTCARENOTE ---
pt VSS, no changes in assessment. OOB in chair for lunch, ambulated in hallway w/ stand by assist. at bedside.
[2024-05-20] MEDS: NSS 500 IV (13:43)
--- NOTE | 2024-05-20 16:30 | PTCARENOTE ---
pt VSS, no changes in assessment. pt OOB to chair for dinner. voiding in urinal. pt ambulated in hallway w/ stand by assist.
[2024-05-20 17:13] LABS: Glucose - Point of Care 129 mg/dl (70-99)
--- NOTE | 2024-05-20 20:00 | PTCARENOTE ---
assumed care of pt from previous RN. pt A&Ox4, resting in chair at time of assessment. SR w/ PACs on tele-monitor. temp epicardial v-wires insulated. POX 99-100% on RA. abd s/n, +BS. voiding clear, yellow urine in urinal. R IJ cordis w/ KVO. PIV
intact. all surgical sites stable, CDI. see worklist for complete nursing assessment, interventions, VS, and I&Os.
[2024-05-20] MEDS: LOPRESSOR 25 MG PO (20:55)
--- NOTE | 2024-05-20 23:00 | RESPNOTE ---
PT refused the use of CPAP as ordered for HS use. PT wore it on saturday, did not tolerate well and refused last night. PT said he did just fine without it and he does not wear at home. PT was told to let his RN know if he changed his mind and
wanted to wear it. Will ask if he wants to wear it tomorrow.
[2024-05-21] VITALS (22 sets, daily range): BP systolic 79–118; BP diastolic 50–95; PULSE 100; O2SAT 99; BMI 36.7
--- NOTE | 2024-05-21 | PTCARENOTE ---
assessment remains unchanged. SR w/ PACs on tele-monitor. POX dropped intermittently to low 80s on RA. pt placed on 2 L NC. POX 94-95%.
[2024-05-21 03:45] LABS: Hemoglobin 9.5 g/dL (13.0-18.0); Mean Corp Hgb Conc. 35.2 g/dL (33.0-37.0); Mean Corpuscular Volume 88.2 fL (80.0-94.0); Red Blood Cell Count 3.06 10^6/uL (4.70-6.10); Red Cell Dist. Width 13.5 % (11.5-14.5); White Blood Cell Count 7.1 10^3/uL (4.8-10.8)
--- NOTE | 2024-05-21 04:00 | PTCARENOTE ---
VSS. AM labs collected and sent. EKG completed for rhythm changes.
[2024-05-21 04:11] LABS: Blood Urea Nitrogen 27 mg/dl (9-20); Calcium 8.2 mg/dl (8.4-10.2); Carbon Dioxide 33 mmol/L (22-30); Chloride 97 mmol/L (98-107); Estimated Creatinine Clearance > 125 ml/min; Glucose 111 mg/dl (70-99); Magnesium 2.2 mg/dl (1.6-2.3); Potassium 4.3 mmol/L (3.5-5.1); Sodium 132 mmol/L (135-145); eGFR > 60.00
[2024-05-21 05:36] LABS: Platelet Count 97 10^3/uL (130-400)
--- NOTE | 2024-05-21 05:51 | W.PN.CT ---
Today's Communication / Plan
-
Plan:
-No major issues overnight. Hemodynamically and neurologically intact
-doing well on RA, 98% SpO2
-midodrine initiated yesterday for soft BPs -> now d/c'd & tolerating BB
-U/O 600 in 12hr, 1675 in 24hr with 20 lasix
-Cont. current meds (ASA,Lipitor, Amiodarone) home tadalafil remains on hold for BP
-CTs d/c'd yesterday
-voiding
-on SSI
-Maintain temporary PW (will cut before d/c home)
-Encourage use of IS
-OOB into chair/Ambulate
-dispo planning
Assessment / Plan
-
Assessment:
-S/P AVR (#25 Inspiris RESILIA)/Ascending aortic replacement (30mm Hemashield [place] Graft), by Dr. Meraz, 05/18/24, pod#3
-Bicuspid aortic valve w/ severe aortic stenosis
-Ascending aortic aneurysm (4.1 cm)
-LVEF 60% per intraop
-Chronic RBBB
-HTN
-HLD
-Prediabetes (HgbA1C 6.1)
-Class 2 obesity (BMI 35.6)
-ROBERT (does not use CPAP @ home)
-BPH (on Flomax and Tadalafil @ home)
-Hx Testicular Ca
-Seasonal allergies
-Acute postop blood loss/Anemia (stable without transfusion)
-Acute postop thrombocytopenia (stable without active bleed)
-Acute postop atelectasis
-Acute postop hypovolemia with subsequent hypervolemia
Discussed patient care with: Care Team
Subjective
Procedure
-S/P AVR (#25 Inspiris RESILIA)/Ascending aortic replacement (30mm Hemashield [place] Graft), by Dr. Meraz
-
Date of Service: May 21, 2024
Objective Data
-
Lab Results
05/20/24 04:15
05/20/24 04:15
PT 18.8 Sec (11.4-14.6) H 05/18/24 13:39
INR 1.59 05/18/24 13:39
APTT 34.7 Sec (23.4-35.0) 05/18/24 13:39
Vital Signs
Vital Signs
Temp Pulse Resp BP Pulse Ox
97.4 F 78 18 117/67 100
05/20/24 20:00 05/20/24 21:00 05/20/24 20:00 05/20/24 20:59 05/20/24 20:00
CT Intake/Output/Weight
05/20/24 05/20/24 05/21/24
06:59 18:59 06:59
Intake Total 120 / 262.8 30 / 70 40 / 70
Output Total 535 / 1055 1520 / 2020 500 / 2020
Balance -415 / -792.2 -1490 / -1950 -460 / -1950
SaO2: 100
Physical Exam
-
General: Awake, Oriented and AOx3
Cardiovascular: Regular rate & rhythm
Respiratory: Clear and Equal
Sternum: Stable
Incision: Clean, Dry and Intact
Extremities: Edema +1
Data Reviewed
-
Lab Results: Results Reviewed
Medications: Active Meds Reviewed
Chest X-Ray: Image Reviewed
Vital Signs / Labs
-
Vital Signs and Labs:
Temp Pulse Resp BP Pulse Ox
98.7 F 89 16 111/55 99
05/21/24 04:00 05/21/24 04:00 05/21/24 04:00 05/21/24 03:15 05/21/24 04:00
05/21/24 03:27
05/21/24 03:27
05/20/24 05/20/24 05/20/24
08:02 12:21 17:12
RBC
Hgb
Hct
Plt Count
Sodium
Chloride
Carbon Dioxide
BUN
Creatinine
Glucose
Calcium
POC Glucose 138 H 148 H 129 H
05/21/24
03:27
RBC 3.06 L
Hgb 9.5 L
Hct 27.0 L
Plt Count 97 L D
Sodium 132 L
Chloride 97 L
Carbon Dioxide 33 H
BUN 27 H
Creatinine 0.6 L
Glucose 111 H
Calcium 8.2 L
POC Glucose
[2024-05-21] MEDS: TYLENOL 1000 MG PO ×3 (06:04→22:13)
[2024-05-21] MEDS: CORDARONE 103 MG IV (07:34)
[2024-05-21] MEDS: NOVOLOG FLEXPEN-MODERATE RESISTANCE SC ×3 (07:46→17:31)
[2024-05-21 07:47] LABS: Glucose - Point of Care 133 mg/dl (70-99)
--- NOTE | 2024-05-21 08:00 | PTCARENOTE ---
pt received from previous RN, oriented, OOB in chair. SR w/ frequent PACs/A-fib on the monitor, HR 70s-90s. SBP 90-110s. V wires in place, insulated. amiodarone bolus given as ordered. +1 LE edema, R>L , pt states that is baseline d/t previous
surgery. pt on RA, 94-99% POX. lungs clear, diminished in bases. IS encouraged. chest PT performed. pt abdomen s/n, denies n/v. tolerating diet. pt states had BM last night. voids. sternal aquacel in place, chest tube dressing c/d/i. RIJ cordis
maintained. PIV. see worklist for VS, I&O, and assessment.
[2024-05-21] MEDS: LASIX 40 MG IV (08:12)
[2024-05-21] MEDS: KCL 20 MEQ PO (08:13)
[2024-05-21] MEDS: THERAGRAN 1 TABLET PO (08:46)
[2024-05-21] MEDS: PROTONIX 40 MG PO (08:46)
[2024-05-21] MEDS: FLOMAX 0.400000000000000022 MG PO (08:46)
[2024-05-21] MEDS: MUCINEX 1200 MG PO ×2 (08:46→20:11)
[2024-05-21] MEDS: LOW STRENGTH ASPIRIN 81 MG PO (08:46)
[2024-05-21] MEDS: PACERONE 200 MG PO ×3 (08:46→22:12)
[2024-05-21] MEDS: CLARITIN 10 MG PO (08:46)
[2024-05-21] MEDS: LOPRESSOR 25 MG PO (08:47)
[2024-05-21] MEDS: NEURONTIN 100 MG PO ×3 (08:47→22:12)
[2024-05-21] MEDS: MAGNESIUM OXIDE 500 MG PO ×2 (08:47→20:11)
[2024-05-21] MEDS: LIPITOR 40 MG PO (08:47)
[2024-05-21] MEDS: VALTREX 500 MG PO (08:47)
[2024-05-21] MEDS: SENOKOT-S PO ×2 (08:47→20:12)
[2024-05-21] MEDS: LIDOCAINE 4% PATCH 1 PATCH TOPICAL (08:47)
[2024-05-21] MEDS: CORDARONE 518 MG IV (08:49)
[2024-05-21] MEDS: BACTROBAN 2% OINTMENT 1 APPLIC NASAL ×2 (08:56→20:10)
--- NOTE | 2024-05-21 09:33 | W.PN.CD ---
Today's Communication / Plan
-
continue current metoprolol and amiodarone
monitor rhyhtms and BP
Impression / Plan
-
Assessment/Plan: 68 y/o male (patient of Dr. Avila) with dyslipidemia, RBBB, severe , and aortic root dilatation who is now s/p AVR and ascending aortic replacement.
#Bicuspid AV with severe
-Chronic, progressive.
-S/P #25 Inspiris RESILIA SAVR with Dr. Meraz, 05/18/24.
-Continue amiodarone, aspirin,
- BB previousl held for lower BP. BP npow improved and BB resumed. Not receiving mdodrine. . Pateitn with sinus and frequent PACS. short runs SVT earlier and additonal amio given. will monitor for PAF
- continue current metoprolol and amiodarone
#Ascending aortic aneurysm
-Chronic, stable.
-Ascending aortic replacement w/ #30 Hemashield [place] Graft.
#RBBB
-Chronic, stable.
#Dyslipidemia:
-Chronic, stable.
-Continue atorvastatin.
Subjective/Interval History:
comfortable sinus with PACs withous ymptoms. short runs SVT noted earlier today and patietn given additional ami
DATA:
Cardiac Catheterization, 03/23/2024:
CONCLUSIONS:
1. Right dominant circulation with a low, anterior takeoff of the right coronary artery requiring a multipurpose catheter for engagement, but no coronary artery disease in either the right or left system.
2. Severe aortic valve stenosis.
3. Moderately elevated filling pressures (LVEDP = 23 mmHg, PCWP = 23 mmHg at 121.8 kg).
4. Mild pulmonary hypertension, WHO group 2.
TTE, 12/04/2023:
CONCLUSIONS
Normal left ventricular size, wall thickness and systolic function. No regional
wall motion abnormalities are seen. LV ejection fraction is 55-60% by visual
assessment. Normal diastolic function.
Normal right ventricular size and function.
Normal atria.
Mitral annular calcification extending onto the thickened mitral valve leaflets
without stenosis.
Calcified and thickened trileaflet aortic valve with moderate, nearing severe
aortic stenosis.
Dilated aortic root at 4.1 cm.
No evidence of pulmonary hypertension.
No significant change since the prior study of 06/03/2023. Aortic valve
gradients are marginally worse. DI remains 0.3-0.4. AVAi is still > 0.4
cm2/m2.
Physical Exam
Vital Signs/Labs
Vital Signs
Temp Pulse Resp BP Pulse Ox
98.7 F 75 12 109/61 99
05/21/24 04:00 05/21/24 08:10 05/21/24 08:00 05/21/24 08:12 05/21/24 08:10
05/20/24 05/21/24 05/22/24
06:59 06:59 06:59
Actual Weight 123 kg 122.6 kg
05/21/24 03:27
05/21/24 03:27
PT 18.8 Sec (11.4-14.6) H 05/18/24 13:39
INR 1.59 05/18/24 13:39
APTT 34.7 Sec (23.4-35.0) 05/18/24 13:39
Magnesium 2.2 mg/dl (1.6-2.3) 05/21/24 03:27
Physical Exam
Constitutional: No acute distress
Cardiovascular: Rhythm & rate is regular
Respiratory: Wheeze Absent and Rhonchi Absent
GI: Soft
Neuro/Psych: Alert
Data Reviewed
-
Date of Service: May 21, 2024
Medical Decision Making: Reviewed Test Results
Echo: Report Reviewed by me
Medical Tests (PFT, Pathology etc): Report Reviewed by me
Labs: Labs Reviewed by me
[2024-05-21] MEDS: ProAmatine 5 MG PO (11:53)
--- NOTE | 2024-05-21 12:30 | PTCARENOTE ---
pt VS completed, Amiodarone gtt running as ordered. SHANK RANDER aware of SBP 70-80s. pt denies dizziness but states 'does not feel as good as yesterday'. pt placed back to bed. at bedside. Echo completed. Midodrine PRN given.
[2024-05-21 13:07] LABS: Glucose - Point of Care 110 mg/dl (70-99)
[2024-05-21] MEDS: NSS IV (13:24)
--- NOTE | 2024-05-21 16:00 | PTCARENOTE ---
pt VSS, pt converted to SR @1342, G[employer]MENT [employer]URING [employer]PER[employer]OR aware. SBP 110s. pt OOB to chair, tolerated well. pt to BSC, +BM. IS encouraged.
--- NOTE | 2024-05-21 16:04 | PN.CDI ---
CDI
- -
CDI:
Physician Documentation Request
Admit Date: 05/18/24 04:52
Dear Doctor Kt,
Patient is s/p AVR/ascending aortic replacement on 05/18.
Recent sodium resulted as follows:
Laboratory Tests
05/19/24 05/20/24 05/21/24
04:16 04:15 03:27
Sodium 137 132 L 132 L
Could you please provide a diagnosis that supports the above lab abnormalities and additional evaluation/monitoring:
hyponatremia
abnormal lab value clinically insignificant
Other
Use of terms such as suspected, likely, concern for, or probable (associated with a specific diagnosis that is being evaluated, monitored, or treated as if it exists) are acceptable and can be coded in the inpatient setting, when documented at the
time of discharge.
Thank you,
Daisha Hein RN, BSN
CDI Specialist
tiger text
Please use your independent medical judgment in providing your response.
[2024-05-21 17:21] LABS: Glucose - Point of Care 148 mg/dl (70-99)
[2024-05-21] MEDS: LOPRESSOR 12.5 MG PO (20:11)
--- NOTE | 2024-05-21 20:30 | PTCARENOTE ---
Patient received OOB in chair watching movie. Patient A+A+Ox3. No neurological deficits noted. No c/o headache, dizziness or lightheadedness. Room air. SaO2 98%. No adventitious breath sounds noted. Chest tube dressing intact. Sinus Rhythm.
Heart rate 60-70's. No c/o chest pain, pressure or discomfort. Patient continues on Amiodarone gtt at 0.5 mg/min (16.7 ml/hr). V-Wires insulated. Abdomen round, soft. Normoactive bowel sounds. No BM. No c/o nausea. No vomiting. Voiding
without difficulty. Positive palpable pulses. Bilateral lower extremity edema. Patient with no c/o back or flank pain. Right I.J. Cordis - Intact and patent - Saline 10 ml/hr. Assessment as documented.
[2024-05-21 22:05] LABS: Glucose - Point of Care 161 mg/dl (70-99)
--- NOTE | 2024-05-21 22:30 | PTCARENOTE ---
Patient assisted to bathroom. Sternal precautions. Patient with +BM. Patient back to recliner chair to sleep. 2L HS. Sinus Rhythm. No c/o pain or discomfort. Sternal Aquacell dressing intact. Assessment as documented.
[2024-05-22] VITALS (11 sets, daily range): BP systolic 96–141; BP diastolic 51–76; PULSE 59; O2SAT 97–98; BMI 36.6
--- NOTE | 2024-05-22 00:06 | W.PN.CT ---
Today's Communication / Plan
-
No significant events overnight
Post op Hypotension = Midodrine 5 g PO Q 4 prn, reduced metroplol to 12.5 mg/hr�
Diagnostic ECHO on 04/20 = left ventricular function appears normal but full wall motion analysis�
SVT =Amiodarone drip �
Cont. current meds (ASA, Lipitor, Amiodarone, lopressor, midodrine) home tadalafil remains on hold for BP�
Maintain temporary PW (will cut before d/c home)�
Maintain cordis�
Encourage IS and OOB�
Assessment / Plan
-
Assessment:
-S/P AVR (#25 Inspiris RESILIA)/Ascending aortic replacement (30mm Hemashield [place] Graft), by Dr. Merza, 05/18/24, pod#4
-Bicuspid aortic valve w/ severe aortic stenosis
-Ascending aortic aneurysm (4.1 cm)
-LVEF 60% per intraop
-Chronic RBBB
-HTN
-HLD
-Prediabetes (HgbA1C 6.1)
-Class 2 obesity (BMI 35.6)
-ROBERT (does not use CPAP @ home)
-BPH (on Flomax and Tadalafil @ home)
-Hx Testicular Ca
-Seasonal allergies
-Acute postop blood loss/Anemia (stable without transfusion)
-Acute postop thrombocytopenia (stable without active bleed)
-Acute postop atelectasis
-Acute postop hypovolemia with subsequent hypervolemia
Subjective
Procedure
-S/P AVR (#25 Inspiris RESILIA)/Ascending aortic replacement (30mm Hemashield [place] Graft), by Dr. Meraz
-
Date of Service: May 22, 2024
Objective Data
-
PT 18.8 Sec (11.4-14.6) H 05/18/24 13:39
INR 1.59 05/18/24 13:39
APTT 34.7 Sec (23.4-35.0) 05/18/24 13:39
Vital Signs
Vital Signs
Temp Pulse Resp BP Pulse Ox
97.7 F 66 16 106/64 97
05/21/24 22:00 05/21/24 22:12 05/21/24 22:00 05/21/24 22:12 05/21/24 22:00
CT Intake/Output/Weight
05/21/24 05/21/24 05/22/24
06:59 18:59 06:59
Intake Total 120 / 150 339.6 / 713.1 373.5 / 713.1
Output Total 600 / 2120 2000 / 2550 550 / 2550
Balance -480 / -1970 -1660.4 / -1836.9 -176.5 / -1836.9
SaO2: 97
Physical Exam
-
General: Awake
Cardiovascular: Regular rate & rhythm
Respiratory: Clear
Sternum: Stable
Incision: Clean, Dry and Intact
Extremities: No Edema
--- NOTE | 2024-05-22 06:15 | PTCARENOTE ---
Patient A+A+Ox3. No neurological deficits noted. AM lab work collected and sent. Patient assisted to bathroom with minimal assistance. No c/o headache, dizziness or lightheadedness. Patient voided. Brushed teeth. Standing scale weight 122.4
kg. OOB to chair. Assessment/Interventions as documented.
[2024-05-22 06:29] LABS: Hematocrit 26.4 % (39.0-52.0); Hemoglobin 9.3 g/dL (13.0-18.0); Mean Corp Hgb Conc. 35.2 g/dL (33.0-37.0); Mean Platelet Volume 10.2 fL (7.4-10.4); Platelet Count 111 10^3/uL (130-400); Red Cell Dist. Width 13.5 % (11.5-14.5); White Blood Cell Count 5.6 10^3/uL (4.8-10.8)
[2024-05-22] MEDS: TYLENOL PO (06:51)
[2024-05-22 06:54] LABS: Blood Urea Nitrogen 25 mg/dl (9-20); Calcium 8.3 mg/dl (8.4-10.2); Carbon Dioxide 29 mmol/L (22-30); Chloride 98 mmol/L (98-107); Estimated Creatinine Clearance > 125 ml/min; Glucose 101 mg/dl (70-99); Magnesium 2.5 mg/dl (1.6-2.3); Potassium 4.4 mmol/L (3.5-5.1); Sodium 131 mmol/L (135-145); eGFR > 60.00
[2024-05-22 07:33] LABS: Glucose - Point of Care 127 mg/dl (70-99)
[2024-05-22] MEDS: NOVOLOG FLEXPEN-MODERATE RESISTANCE SC ×2 (07:40→17:28)
--- NOTE | 2024-05-22 07:40 | W.PN.CD ---
Today's Communication / Plan
-
Continue post operative management.
Ambulate.
Discharge planning.
Impression / Plan
-
Assessment/Plan: 68 y/o male with dyslipidemia, RBBB, severe , and aortic root dilatation who is now s/p AVR and ascending aortic replacement.
#Bicuspid AV with severe
-Chronic, progressive.
-S/P #25 Inspiris RESILIA SAVR with Dr. Meraz, 05/18/24.
-Routine post operative management.
-Tele shows brief SVT runs yesterday. No runs seen today.
-Continue amiodarone, aspirin, reduced dose metoprolol.
-Encourage incentive spirometry.
-Ambulate when appropriate.
-Midodrine used PRN.
#Ascending aortic aneurysm
-Chronic, stable.
-Ascending aortic replacement w/ #30 Hemashield [place] Graft.
#RBBB
-Chronic, stable.
#Dyslipidemia:
-Chronic, stable.
-Continue atorvastatin.
Subjective/Interval History:
Not requiring midodrine.
Feels well.
Brief runs of SVT yesterday. None today.
DATA:
Cardiac Catheterization, 03/23/2024:
CONCLUSIONS:
1. Right dominant circulation with a low, anterior takeoff of the right coronary artery requiring a multipurpose catheter for engagement, but no coronary artery disease in either the right or left system.
2. Severe aortic valve stenosis.
3. Moderately elevated filling pressures (LVEDP = 23 mmHg, PCWP = 23 mmHg at 121.8 kg).
4. Mild pulmonary hypertension, WHO group 2.
Physical Exam
Vital Signs/Labs
Vital Signs
Temp Pulse Resp BP Pulse Ox
36.7 C 57 16 138/72 100
05/22/24 05:20 05/22/24 06:00 05/22/24 05:20 05/22/24 05:21 05/22/24 05:21
05/20/24 05/21/24 05/22/24
11:59 11:59 11:59
Actual Weight 123 kg 122.6 kg 122.4 kg
05/22/24 06:06
05/22/24 06:06
PT 18.8 Sec (11.4-14.6) H 05/18/24 13:39
INR 1.59 05/18/24 13:39
APTT 34.7 Sec (23.4-35.0) 05/18/24 13:39
Magnesium 2.5 mg/dl (1.6-2.3) H 05/22/24 06:06
Physical Exam
Constitutional: No acute distress and Comfortable
EENT: Anicteric and Moist mucous membranes
Cardiovascular: Rhythm & rate is regular, Pedal edema is absent, JVD pressure is normal, S1S2 is normal and Murmur/rub/gallop absent
Respiratory: Respiratory effort normal, Lungs clear to auscul., Wheeze Absent, Crackles Absent and Rhonchi Absent
GI: Soft, Distention absent, Flat, Non tender and Normal bowel sounds
Neuro/Psych: AO x 3
Data Reviewed
-
Date of Service: May 22, 2024
Medical Decision Making: Reviewed Test Results, Independent Historian Assessment and Test Interpretation
EKG: Tracing Personally Visualized and interpreted and Report Reviewed by me
Echo: Report Reviewed by me
X-Ray/CT/US/MRI/NUC/PET: Image Personally Visualized and interpreted and Report Reviewed by me
Medical Tests (PFT, Pathology etc): Image Personally Visualized and interpreted and Report Reviewed by me
Labs: Labs Reviewed by me
Old Records: Reviewed
--- NOTE | 2024-05-22 07:48 | PTCARENOTE ---
Pt received from outgoing RN, pt oob in a chair, POD 3, NSR, on amio gtt, RA, VSS, Rt IJ cordis, Vwire insulated, voiding, pain controlled, ACHS BS, pending 2view Xray this morning.
[2024-05-22] MEDS: MUCINEX 1200 MG PO ×2 (08:31→20:09)
[2024-05-22] MEDS: FLOMAX 0.400000000000000022 MG PO (08:31)
[2024-05-22] MEDS: LIDOCAINE 4% PATCH 1 PATCH TOPICAL (08:31)
[2024-05-22] MEDS: LIPITOR 40 MG PO (08:31)
[2024-05-22] MEDS: PROTONIX 40 MG PO (08:31)
[2024-05-22] MEDS: NEURONTIN 100 MG PO ×3 (08:31→23:00)
[2024-05-22] MEDS: MAGNESIUM OXIDE PO ×2 (08:31→19:57)
[2024-05-22] MEDS: LOPRESSOR 12.5 MG PO ×2 (08:31→20:09)
[2024-05-22] MEDS: LOW STRENGTH ASPIRIN 81 MG PO (08:31)
[2024-05-22] MEDS: PACERONE 200 MG PO ×3 (08:31→23:00)
[2024-05-22] MEDS: CLARITIN 10 MG PO (08:31)
[2024-05-22] MEDS: BACTROBAN 2% OINTMENT 1 APPLIC NASAL (08:31)
[2024-05-22] MEDS: THERAGRAN 1 TABLET PO (08:32)
[2024-05-22] MEDS: VALTREX 500 MG PO (08:32)
[2024-05-22] MEDS: SENOKOT-S PO ×2 (08:32→19:57)
--- NOTE | 2024-05-22 09:51 | W.PN.UPDATE ---
Update Note
Progress Note Update
CDI QUERY RESPONSE
hyponatremia
--- NOTE | 2024-05-22 11:54 | PTCARENOTE ---
Pt reassessment unchanged from previous, vss, RA, NSR, no c/o pain, ambulating, ACHS, urinal, Rt IJ cordis, Amio Gtt dced transition to PO amio.
[2024-05-22 12:17] LABS: Glucose - Point of Care 184 mg/dl (70-99)
[2024-05-22] MEDS: NOVOLOG FLEXPEN-MODERATE RESISTANCE 1 UNITS SC (12:19)
[2024-05-22] MEDS: NSS 500 IV (12:19)
[2024-05-22] MEDS: TYLENOL 1000 MG PO ×2 (14:48→23:00)
--- NOTE | 2024-05-22 14:50 | CM ---
Reviewed chart. Met with Mr. Giraldo to review discharge plans. He states he is feeling well and maybe able to go home soon. He ambulated a 150 feet today. Prior to admission he resides with his spouse in a one story home with five steps to enter.
Prior to admission he was independent with ambulation and adls. He does not have any DME in the home. His spouse will be home to assist in his care if needed. We reviewed a home visit by the Cardiothoracic Transitional Care Nurse. He is agreeable
to a home visit. Medical work-up in progress. The discharge plan is to return home with his spouse and a home visit by the Cardiothoracic Transitional Care Nurse when medically stable.
--- NOTE | 2024-05-22 14:58 | PTCARENOTE ---
Pt reassessment unchanged from previous, VSS, RA, oob in chair, ambulating with nursing staff, pain controlled, Rt IJ cordis, NSR.
--- NOTE | 2024-05-22 15:46 | W.PN.UPDATE ---
Update Note
Progress Note Update
Amiodarone infusion discontinued, will continue on oral Amiodarone, whichh should be decreased to 200mg BID on discharge. Follow up BMP 05/23 for hyponatremia (Na+ 131)
[2024-05-22 17:29] LABS: Glucose - Point of Care 119 mg/dl (70-99)
--- NOTE | 2024-05-22 20:30 | PTCARENOTE ---
Patient A+A+Ox3. No neurological deficits noted. Patient ambulating with minimal assistance. Sternal Precautions. No c/o headache, dizziness or lightheadedness. Room air. SaO2 97%. Sinus Rhythm. Heart rate 60-70's. Blood pressure 122/63
(80). No c/o chest pain, pressure or discomfort. V-Wires insulated. Bowel and bladder within normal limits. OOB in chair watching television. Assessment as documented.
[2024-05-22 23:08] LABS: Glucose - Point of Care 103 mg/dl (70-99)
[2024-05-23] VITALS (16 sets, daily range): BP systolic 104–137; BP diastolic 59–78; PULSE 65–75; O2SAT 97–99; BMI 36.7
--- NOTE | 2024-05-23 01:00 | PTCARENOTE ---
Patient sleeping without difficulty. No further changes from previous assessment.
--- NOTE | 2024-05-23 05:56 | W.PN.CT ---
Today's Communication / Plan
-
Plan:
-No major issues overnight. Hemodynamically and neurologically intact
-Was on midodrine for hypotension, currently off. Tolerating low dose Lopressor, will transition to Toprol XL which pt was on at home
-Was on Amiodarone gtt for SVT/Sinus tachycardia with PAC's which is now off. Tolerating PO Amiodarone. Will go home with 200 mg PO BID per Cardiology
-Did have another SVT with ambulation to bathroom this AM. HR 60's overnight. Currently sinus @ 62 bpm
-Cont. current meds (ASA,Lipitor, Amiodarone, Toprol XL, Valacyclovir, Flomax; Tadalafil currently on hold given soft BP)
-Encourage use of IS
-OOB into chair/Ambulate
-D/C temporary PW (will cut before d/c home)
-AM labs pending, will replete electrolytes as warranted
-D/C cordis
-D/C home likely tomorrow
Assessment / Plan
-
Assessment:
-S/P AVR (#25 Inspiris RESILIA)/Ascending aortic replacement (30mm Hemashield [place]raft), by Dr. Meraz, 05/18/24, pod#5
-Bicuspid aortic valve w/ severe aortic stenosis
-Ascending aortic aneurysm (4.1 cm)
-LVEF 60% per intraop
-Chronic RBBB
-HTN
-HLD
-Prediabetes (HgbA1C 6.1)
-Class 2 obesity (BMI 35.6)
-ROBERT (does not use CPAP @ home)
-BPH (on Flomax and Tadalafil @ home)
-Hx Testicular Ca
-Seasonal allergies
-Acute postop blood loss/Anemia (stable without transfusion)
-Acute postop thrombocytopenia (stable without active bleed)
-Acute postop atelectasis
-Acute postop hypovolemia with subsequent hypervolemia
-Acute postop hyponatremia
-Acute postop sinus tachycardia with PAC's/SVT
Discussed patient care with: Cardiology, Nursing, Respiratory Therapy, Pharmacy and Care Team
Subjective
Procedure
AVR (#25 Inspiris RESILIA)/Ascending aortic replacement (30mm Hemashield [place] Graft), by Dr. Meraz, 05/18/24
-
Date of Service: May 23, 2024
Pt c/o mild incisional pain, otherwise feels well
Objective Data
-
PT 18.8 Sec (11.4-14.6) H 05/18/24 13:39
INR 1.59 05/18/24 13:39
APTT 34.7 Sec (23.4-35.0) 05/18/24 13:39
Vital Signs
Vital Signs
Temp Pulse Resp BP Pulse Ox
97.9 F 57 16 110/59 100
05/22/24 23:00 05/23/24 01:00 05/22/24 23:00 05/22/24 23:00 05/23/24 01:00
CT Intake/Output/Weight
05/22/24 05/22/24 05/23/24
06:59 18:59 06:59
Intake Total 560.4 / 900.0 326.6 / 646.6 320 / 646.6
Output Total 800 / 2800 950 / 1850 900 / 1850
Balance -239.6 / -1900.0 -623.4 / -1203.4 -580 / -1203.4
SaO2: 100 (RA)
Physical Exam
-
General: Awake, Oriented and AOx3
Cardiovascular: Regular rate & rhythm, Murmur, No Murmurs, No Rub and No Gallop
Respiratory: Decreased Breath Sounds
Sternum: Stable
Incision: Clean, Dry, Intact and Dressing Intact
Extremities: Other (+trace edema)
Data Reviewed
-
Lab Results: Results Reviewed
Medications: Active Meds Reviewed
Chest X-Ray: Report Reviewed and Image Reviewed
ECG: Report Reviewed and Image Reviewed
[2024-05-23 05:58] LABS: Hematocrit 26.1 % (39.0-52.0); Hemoglobin 8.8 g/dL (13.0-18.0); Mean Corp Hgb Conc. 33.7 g/dL (33.0-37.0); Mean Corpuscular Hgb 30.8 pg (27.0-31.0); Mean Corpuscular Volume 91.3 fL (80.0-94.0); Mean Platelet Volume 9.4 fL (7.4-10.4); Platelet Count 135 10^3/uL (130-400); Red Blood Cell Count 2.86 10^6/uL (4.70-6.10); Red Cell Dist. Width 13.3 % (11.5-14.5); White Blood Cell Count 5.2 10^3/uL (4.8-10.8)
[2024-05-23] MEDS: TYLENOL 1000 MG PO ×3 (05:58→21:27)
--- NOTE | 2024-05-23 06:00 | PTCARENOTE ---
Patient A+A+Ox3. No neurological deficits noted. Patient ambulated to bathroom by self. Sternal Precautions. Standing scale weight 122.6 kg. OOB to chair. AM lab work collected and sent. Assessment/Interventions as documented.
[2024-05-23 06:25] LABS: Blood Urea Nitrogen 22 mg/dl (9-20); Calcium 8.4 mg/dl (8.4-10.2); Carbon Dioxide 30 mmol/L (22-30); Chloride 99 mmol/L (98-107); Estimated Creatinine Clearance > 125 ml/min; Glucose 97 mg/dl (70-99); Magnesium 2.3 mg/dl (1.6-2.3); Potassium 4.5 mmol/L (3.5-5.1); Sodium 134 mmol/L (135-145); eGFR > 60.00
[2024-05-23 07:16] LABS: Glucose - Point of Care 111 mg/dl (70-99)
[2024-05-23] MEDS: NOVOLOG FLEXPEN-MODERATE RESISTANCE SC ×3 (07:52→17:20)
--- NOTE | 2024-05-23 08:41 | PTCARENOTE ---
Patient received from lieutenant shift supervisor resting oob in chair, AAO x 3, states pain controlled at this time. NSR via cm, SaO2 @ 97% on RA. RIJ Cordis w/kvo infusing. Epicardial V-wire, insulated to chest wall. All procedural sites stable. Patient updated
to plan of care for the day including possible d/c home, in agreement. See work list for full assessment and interventions performed.
[2024-05-23] MEDS: CLARITIN 10 MG PO (09:26)
[2024-05-23] MEDS: PACERONE 200 MG PO ×3 (09:26→21:27)
[2024-05-23] MEDS: LIDOCAINE 4% PATCH 1 PATCH TOPICAL (09:26)
[2024-05-23] MEDS: MUCINEX 1200 MG PO ×2 (09:26→19:55)
[2024-05-23] MEDS: MAGNESIUM OXIDE 500 MG PO ×2 (09:27→19:55)
[2024-05-23] MEDS: VALTREX 500 MG PO (09:27)
[2024-05-23] MEDS: LIPITOR 40 MG PO (09:27)
[2024-05-23] MEDS: VITAMIN C 1000 MG PO (09:27)
[2024-05-23] MEDS: FEOSOL 325 MG PO (09:27)
[2024-05-23] MEDS: FLOMAX 0.400000000000000022 MG PO (09:27)
[2024-05-23] MEDS: TOPROL XL 12.5 MG PO (09:27)
[2024-05-23] MEDS: LOW STRENGTH ASPIRIN 81 MG PO (09:28)
[2024-05-23] MEDS: SENOKOT-S PO ×2 (09:28→19:47)
[2024-05-23] MEDS: THERAGRAN 1 TABLET PO (09:28)
[2024-05-23] MEDS: NEURONTIN 100 MG PO ×3 (09:28→21:27)
[2024-05-23] MEDS: PROTONIX 40 MG PO (09:28)
[2024-05-23 11:57] LABS: Glucose - Point of Care 102 mg/dl (70-99)
--- NOTE | 2024-05-23 11:58 | PTCARENOTE ---
VS obtained, assessment stable. at bedside for visit, ordering lunch.
[2024-05-23] MEDS: NSS 500 IV (13:12)
[2024-05-23] MEDS: CORDARONE 103 MG IV (13:17)
[2024-05-23] MEDS: MAGNESIUM SULFATE 50 IV (13:31)
[2024-05-23 13:46] LABS: Magnesium 2.2 mg/dl (1.6-2.3); Potassium 4.9 mmol/L (3.5-5.1)
--- NOTE | 2024-05-23 16:45 | PTCARENOTE ---
VS obtained, assessment unchanged. Assisted back oob after brief nap, settled to chair. Perusing menu for dinner.
[2024-05-23 17:20] LABS: Glucose - Point of Care 110 mg/dl (70-99)
[2024-05-23] MEDS: TOPROL XL 25 MG PO (19:55)
[2024-05-23] MEDS: CALCIUM CHLORIDE 10% SYRINGE 60 MG IV (19:55)
--- NOTE | 2024-05-23 20:16 | PTCARENOTE ---
Assumed care of patient from day shift RN. AAO x 3 sitting up in the chair. Denies pain at present. Breathing even and unlabored. 97% room air, using IS to 2000. SR on monitor. Epicardial wire insulated. Abdomen soft and non tender. Voiding
clear jorge luis urine independently. Pulses palpable. No edema appreciated. Surgical dressing c,d,i.
[2024-05-23 21:26] LABS: Glucose - Point of Care 134 mg/dl (70-99)
--- NOTE | 2024-05-23 22:03 | PTCARENOTE ---
Ambulated with RN in hallway , tolerated well, no JAVIER noted. Does not wish to wash up this evening despite being encouraged by RN.
--- NOTE | 2024-05-23 23:23 | PTCARENOTE ---
Ambulated into bathroom, preformed HS ADLs. VSS, assessment unchanged from prior. Requesting oxygen for sleep, placed on 2 L. Will monitor.
[2024-05-24 03:13] VITALS: BP 128/69
--- NOTE | 2024-05-24 03:25 | PTCARENOTE ---
Ambulating in room and into bathroom w/ minimal assistance. Am Labs obtained and sent. VSS. Assessment unchanged from prior.
[2024-05-24 03:51] LABS: Hematocrit 27.5 % (39.0-52.0); Hemoglobin 9.2 g/dL (13.0-18.0); Mean Corp Hgb Conc. 33.5 g/dL (33.0-37.0); Mean Corpuscular Hgb 30.6 pg (27.0-31.0); Mean Corpuscular Volume 91.4 fL (80.0-94.0); Mean Platelet Volume 9.5 fL (7.4-10.4); Platelet Count 167 10^3/uL (130-400); Red Blood Cell Count 3.01 10^6/uL (4.70-6.10); Red Cell Dist. Width 13.4 % (11.5-14.5); White Blood Cell Count 5.7 10^3/uL (4.8-10.8)
--- NOTE | 2024-05-24 03:52 | W.PN.CT ---
Today's Communication / Plan
-
Plan:
-No major issues overnight. Hemodynamically and neurologically intact
-Pt's tolerating increased BB (Toprol XL 25 mg PO BID). No further SVT overnight
-Will go home with 200 mg PO BID of Amiodarone per Cardiology
-Current rhythm is sinus @ 60 bpm
-Cont. current meds (ASA,Lipitor, Amiodarone, Toprol XL, Valacyclovir, Flomax; Tadalafil currently on hold given soft BP)
-Encourage use of IS
-OOB into chair/Ambulate
-D/C temporary PW (will cut before d/c home)
-D/C cordis
-D/C home today
Assessment / Plan
-
Assessment:
-S/P AVR (#25 Inspiris RESILIA)/Ascending aortic replacement (30mm Hemashield [place] Graft), by Dr. Meraz, 05/18/24, pod#6
-Bicuspid aortic valve w/ severe aortic stenosis
-Ascending aortic aneurysm (4.1 cm)
-LVEF 60% per intraop
-Chronic RBBB
-HTN
-HLD
-Prediabetes (HgbA1C 6.1)
-Class 2 obesity (BMI 35.6)
-ROBERT (does not use CPAP @ home)
-BPH (on Flomax and Tadalafil @ home)
-Hx Testicular Ca
-Seasonal allergies
-Acute postop blood loss/Anemia (stable without transfusion)
-Acute postop thrombocytopenia (stable without active bleed)
-Acute postop atelectasis
-Acute postop hypovolemia with subsequent hypervolemia
-Acute postop hyponatremia
-Acute postop sinus tachycardia with PAC's/SVT
Discussed patient care with: Cardiology, Nursing, Respiratory Therapy, Pharmacy and Care Team
Subjective
Procedure
AVR (#25 Inspiris RESILIA)/Ascending aortic replacement (30mm Hemashield [place] Graft), by Dr. Meraz, 05/18/24
-
Date of Service: May 24, 2024
Pt c/o mild incisional pain, otherwise feels well. Ambulating halls without difficulty
Objective Data
-
PT 18.8 Sec (11.4-14.6) H 05/18/24 13:39
INR 1.59 05/18/24 13:39
APTT 34.7 Sec (23.4-35.0) 05/18/24 13:39
Vital Signs
Vital Signs
Temp Pulse Resp BP Pulse Ox
98.2 F 60 20 128/69 99
05/24/24 03:23 05/24/24 03:23 05/24/24 03:23 05/24/24 03:13 05/24/24 03:23
CT Intake/Output/Weight
05/23/24 05/23/24 05/24/24
06:59 18:59 06:59
Intake Total 600 / 926.6 570 / 730 160 / 730
Output Total 900 / 1850 625 / 1025 400 / 1025
Balance -300 / -923.4 -55 / -295 -240 / -295
SaO2: 99 (RA)
Physical Exam
-
General: Awake, Oriented and AOx3
Cardiovascular: Regular rate & rhythm, No Murmurs, No Rub and No Gallop
Respiratory: Decreased Breath Sounds (at bases, otherwise clear)
Sternum: Stable
Incision: Clean, Dry, Intact and Dressing Intact
Extremities: No Edema
Data Reviewed
-
Lab Results: Results Reviewed
Medications: Active Meds Reviewed
Chest X-Ray: Report Reviewed and Image Reviewed
ECG: Report Reviewed and Image Reviewed
[2024-05-24 04:11] LABS: Blood Urea Nitrogen 22 mg/dl (9-20); Calcium 8.8 mg/dl (8.4-10.2); Carbon Dioxide 29 mmol/L (22-30); Chloride 100 mmol/L (98-107); Estimated Creatinine Clearance > 125 ml/min; Glucose 100 mg/dl (70-99); Magnesium 2.3 mg/dl (1.6-2.3); Potassium 4.8 mmol/L (3.5-5.1); Sodium 134 mmol/L (135-145); eGFR > 60.00
[2024-05-24] MEDS: TYLENOL 1000 MG PO (05:38)
[2024-05-24 05:41] VITALS: BMI 36.7
[2024-05-24 07:22] LABS: Glucose - Point of Care 109 mg/dl (70-99)
--- NOTE | 2024-05-24 07:37 | PTCARENOTE ---
Patient received from caustic cresylate shift superintendent resting oob in chair, AAO X 3, denies pain, awaiting breakfast. NSR via cm. RIJ Cordis w/kvo infusing. Epicardial V-wire, insulated to chest wall. All procedural sites stable. Patient updated to plan of care,
including pending d/c home, in agreement. See work list for full assessment and interventions performed.
[2024-05-24] MEDS: NOVOLOG FLEXPEN-MODERATE RESISTANCE SC (07:39)
[2024-05-24 07:47] VITALS: BP 104/87
[2024-05-24 07:48] VITALS: BP 114/62
[2024-05-24] MEDS: NEURONTIN 100 MG PO (07:51)
[2024-05-24] MEDS: MUCINEX 1200 MG PO (07:51)
[2024-05-24] MEDS: PACERONE 200 MG PO (07:51)
[2024-05-24] MEDS: CLARITIN 10 MG PO (07:51)
[2024-05-24] MEDS: FLOMAX 0.400000000000000022 MG PO (07:51)
[2024-05-24] MEDS: VITAMIN C 1000 MG PO (07:51)
[2024-05-24] MEDS: MAGNESIUM OXIDE 500 MG PO (07:51)
[2024-05-24] MEDS: SENOKOT-S PO (07:51)
[2024-05-24] MEDS: TOPROL XL 25 MG PO (07:52)
[2024-05-24] MEDS: VALTREX 500 MG PO (07:52)
[2024-05-24] MEDS: THERAGRAN 1 TABLET PO (07:52)
[2024-05-24] MEDS: LOW STRENGTH ASPIRIN 81 MG PO (07:52)
[2024-05-24] MEDS: PROTONIX 40 MG PO (07:52)
[2024-05-24] MEDS: LIPITOR 40 MG PO (07:52)
[2024-05-24] MEDS: FEOSOL 325 MG PO (07:52)
[2024-05-24] MEDS: LIDOCAINE 4% PATCH TOPICAL (07:58)
[2024-05-24 08:37] VITALS: PULSE 65
--- NOTE | 2024-05-24 09:48 | W.DCSUMMARY ---
Discharge Summary
Discharge Data
Date of Admission: 05/18/24
Date of Discharge: 05/24/24
Total time spent discharging patient (in min): 60
-
Pending Results: No
Hospital Course
Patient underwent aortic valve replacement with a bioprosthetic valve as well as ascending aortic replacement with a 30 mm Hemashield graft by Dr. Juan Meraz on 05/18/2024. Please refer to separately dictated operative report for complete
details. Postoperatively the patient was transferred to the intensive care unit on low-dose Levophed, Precedex, insulin infusions. He was extubated 1805 per protocol. He progressed well through the evening of postop day #0.
Postoperative day #1: Blood pressures remained soft once Levophed was weaned. He was started on low-dose midodrine to assist with blood pressure. He was transferred to telemetry face and insulin infusion was stopped. Beta-blockers and Flomax were
held. Patient has a known history of BPH.
Postoperative day #2: Shaffer catheter was discontinued. Midodrine was stopped. Beta-blockers were started and increased due to episodes of supraventricular tachycardia. Chest tubes were discontinued. Patient continued progress well with rehab.
Postoperative day #3: Patient was found to be hypotensive and thus beta-santos was held. Midodrine was again started. Given short burst of supraventricular tachycardia Amio bolus and drip were pursued. Transthoracic echocardiogram was done to
rule out pericardial effusion. The patient was diuresed. He continued to progress well otherwise.
Postoperative day #4: Amiodarone was transition to oral. He remained in sinus rhythm. He remained inpatient to continue monitoring his rhythm. He complained of some lightheadedness/dizziness with standing. Beta-blockers remain on hold.
Midodrine was again stopped.
Postoperative day #5: Had a very brief 2-minute episode of rapid atrial fibrillation which self terminated. He was given an additional amiodarone bolus. He was also given IV magnesium. Beta-blockers were restarted and titrated as tolerated. He
was started on iron and vitamin C. He remains on room air and ambulates independently.
Postoperative day #6: Patient has remained in sinus rhythm for the past 24 hours. He is tolerating beta-blockers and oral amiodarone. After discussion with cardiology Home monitoring will not be needed. Given the very brief 2-minute episode of
atrial fibrillation it was decided to hold off on anticoagulation for now. If he has recurrent episodes he will require anticoagulation ultimately. Will defer to cardiology outpatient for further management. Cordis was removed without incident.
Pacing wires were cut at the skin due to surgeon preference. I reviewed the discharge instructions with the patient at length and answered his questions to his satisfaction prior to discharge.
Discharge Plan
-
Patient Disposition: Home (Routine Discharge)
Discharge Diagnosis/Procedures: -Status post aortic valve replacement (#25 Inspiris RESILIA)/Ascending aortic replacement (30mm Hemashield [place] Graft), by Dr. Meraz, 05/18/24
-Bicuspid aortic valve with severe aortic stenosis
-Ascending aortic aneurysm (4.1 cm)
-Left ventricular ejection fraction 60% per intraoperative
-Chronic right bundle branch block
-Hypertension
-Hyperlipidemia
-Prediabetes (hemoglobin A1c 6.1)
-Class 2 obesity (body mass index 35.6)
-Obstructive sleep apnea noncompliant with continuous positive airway pressure
-Benign prostatic hyperplasia (on Flomax and Tadalafil at home)
-History testicular cancer
-Seasonal allergies
-Acute postoperative blood loss/Anemia (stable without transfusion)
-Acute postoperative thrombocytopenia (stable without active bleed)
-Acute postoperative atelectasis
-Acute postoperative hypovolemia with subsequent hypervolemia
-Acute postoperative hyponatremia
-Acute postoperative sinus tachycardia with premature atrial complexes/supraventricular tachycardia, 2 minutes of self terminating atrial fibrillation with rapid ventricular response on 05/21
Diet: Diabetic, Carb Controlled
Activity: No strenuous activity
Driving Restrictions: Not until seen by your Dr
Bathing Restrictions: OK to Shower
Other Services: Cardiac Rehab
Specialty Instructions: Weigh Daily- Call MD for wt gain/loss 3 lbs overnight/5 lbs in 1 week
Activity Restrictions/Additional Instructions:
ACTIVITY:
-No strenuous activity: no heavy lifting, pushing, pulling anything over 15 pounds for one month
-continue to use stairs as tolerated
DRIVING RESTRICTIONS:
-No driving for one month or until approved by your surgeon
WOUND CARE:
-Shower daily. Use soap & water.
-No lotions, creams or powders on incision area.
DIET:
-continue a low fat/low cholesterol diet.
-IF you are diabetic, continue carb controlled diet.
CARDIAC REHAB:
-Please make appointment to start in 5-6 weeks with your local hospital program. (See Cardiac Rehabilitation Discharge Booklet).
SPECIALTY INSTRUCTIONS:
-Weigh yourself daily. Call your physician for any weight gain/loss of 3 lbs overnight or 5 lbs in one week.
-REPORT any clicking noise or uneven appearance of your sternum to your surgeon immediately.
-If you smoke, you are instructed to quit. The [place] smoking hotline phone number is [phone]
Referrals:
CT Transitional Care Nurse [Outside] - in two days
(
The Cardiothoracic Transitional Care Nurse will call you to set up a visit in 1-2 days.)
[facility]. Cardiac Rehab [Outside] - 07/01/24 1:00 pm
(Cardiac Rehab Orientation appointment is on 07/01/24 at 1:00
The Cardiac Rehab gym is located on the first floor of the [facility].)
Rosemarie Mane NP [Specified Professional Personl] - 07/06/24 2:00 pm (The appointment on June at 11:20 a.m. has been cancelled. )
Kobe Meyer DO [Family Provider] - in four to six weeks (Please make an appointment in four to six week. )
Slava Hoffman MD [Active] - (Post CABG, suspected ROBERT, see in office post HST once recovered from surgery (d/w CTSx EXTERNAL GRINDER))
Juan Meraz MD [Active] - 06/23/24 1:30 pm
Prescriptions:
New
acetaminophen 325 mg Tablet
650 mg PO Q4HPRN PRN (Reason: mild pain,headache,temp >101F ) Qty: 0 0RF
ferrous sulfate [FeroSul] 325 mg (65 mg iron) Tablet
325 mg PO DAILY Qty: 30 0RF
amiodarone [Pacerone] 200 mg Tablet
200 mg PO BID Qty: 60 2RF
ascorbic acid (vitamin C) [Vitamin C] 500 mg Tablet
1,000 mg PO DAILY Qty: 30 0RF
metoprolol succinate 25 mg Tablet Extended Release 24 Hr
25 mg PO BID Qty: 60 2RF
oxycodone 5 mg Tablet
5 mg PO Q4HPRN PRN (Reason: moderate pain) Qty: 30 0RF
Continued
fexofenadine 180 MG tablet
180 mg PO DAILY
phenylephrine HCl [Sudafed PE] 10 MG tablet
10 mg PO TIDPRN PRN (Reason: allergies/post nasal drip)
atorvastatin 40 MG tablet
40 mg PO DAILY
valacyclovir 500 MG tablet
500 mg PO DAILY
aspirin 81 MG tablet,chewable
81 mg PO DAILY
tamsulosin 0.4 mg Capsule
0.4 mg PO DAILY
Centrum Silver 0.4 mg-300 mcg- 250 mcg Tablet
1 tab PO DAILY
coenzyme Q10 [Co Q-10] 200 mg Capsule
200 mg PO DAILY
omega 2-tgi-rzb-fish oil [Fish Oil] 1,200 (144-216) mg Capsule
1 cap PO DAILY
Medical Cannibus
1 dose PO PRN PRN (Reason: anxiety, pain)
Discontinued
tadalafil 5 MG tablet
5 mg PO DAILY@1600
metoprolol succinate 25 mg Tablet Extended Release 24 Hr
25 mg PO DAILY
ibuprofen 200 mg Tablet
200 mg PO Daily
Discharge Orders:
Discharge Patient (As Directed); Ordered 05/24/24
Ordered By: Kyle Mitchell
Care Plan Goals
Care Plan Goals:
Problem: Readiness for enhanced knowledge related to diagnosis and treatment plan
Goal: Understand your diagnosis and treatment plan needs, including medications if applicable.
Instructions: Know your diagnosis, underlying causes and treatment plan options, including medications if applicable. Consult with your health care team to learn about your diagnosis and treatment plan, including medications if applicable.
Discharge Date and Time
Print Language: LEBANESE
--- NOTE | 2024-05-24 10:21 | PTCARENOTE ---
Epicardial V-wire d/c'd by JANINA Mitchell, assist by this RN. ASHA Nieto d/c'd as ordered. Patient tolerated well.
--- NOTE | 2024-05-24 11:31 | PTCARENOTE ---
Patient set up to shower, completed independently. PIV removed. Discharge instructions thoroughly reviewed w/patient and spouse, all questions answered. PIV removed. Patient and all belongings transported to waiting vehicle for d/c home.
== END 2024-05-24 12:32 | disposition home or self-care (01) | DRG 220 ==
LOC: CVICU 04:52
PROVIDERS: Anesthesiology; Nurse Practitioner; Physician Assistant Medical; ADMITTING PHYSICIAN Thoracic Surgery (Cardiothoracic Vascular Surgery); FAMILY PHYSICIAN Family Medicine; OTHER PHYSICIAN Internal Medicine Pulmonary Disease
PROC: B24BZZ4 Ultrasonography of Heart with Aorta, Transesophageal (ICD-10-PCS; 2024-05-18)
PROC: 02RF08Z Replacement of Aortic Valve with Zooplastic Tissue, Open Approach (ICD-10-PCS; 2024-05-18)
PROC: 5A1221Z Performance of Cardiac Output, Continuous (ICD-10-PCS; 2024-05-18)
PROC: 02UX0JZ Supplement Thoracic Aorta, Ascending/Arch with Synthetic Substitute, Open Approach (ICD-10-PCS; 2024-05-18)
DX: Q23.1 Congenital insufficiency of aortic valve (principal); D62 Acute posthemorrhagic anemia; E87.1 Hypo-osmolality and hyponatremia; I47.10 Supraventricular tachycardia, unspecified; J98.11 Atelectasis; I71.21 Aneurysm of the ascending aorta, without rupture; R73.03 Prediabetes; I95.9 Hypotension, unspecified; N40.0 Benign prostatic hyperplasia without lower urinary tract symptoms; E78.5 Hyperlipidemia, unspecified; D69.59 Other secondary thrombocytopenia; E86.1 Hypovolemia; E87.70 Fluid overload, unspecified; I49.1 Atrial premature depolarization; I45.10 Unspecified right bundle-branch block; I10 Essential (primary) hypertension; G47.33 Obstructive sleep apnea (adult) (pediatric); E66.9 Obesity, unspecified; Z68.35 Body mass index [BMI] 35.0-35.9, adult; Z79.82 Long term (current) use of aspirin; Z79.899 Other long term (current) drug therapy; Z86.16 Personal history of COVID-19; Z91.198 Patient's noncompliance with other medical treatment and regimen for other reason
CPT/HCPCS: 88305; 88311; 93308; 36415; 71045; 71046; 80048; 80053; 81003; 81015; 82248; 82330; 82565; 82805; 82810; 82947; 82962; 83036; 83735; 84132; 84302; 84520; 85014; 85018; 85025; 85027; 85049; 85610; 85730; 86850; 86900; 86901; 86920; 87070; 93005; 93312; 93320; 93325; 93880; 94002; 94010; 94660; P9045

== ENCOUNTER 2024-05-29 23:35 | Inpatient (IN) | payer MEDICARE, SELFPAY ==
[2024-05-29 23:44] VITALS: BP 98/63
[2024-05-29 23:47] VITALS: BMI 36.9
[2024-05-30] VITALS (7 sets, daily range): BP systolic 106–153; BP diastolic 66–124; BMI 36.4
--- NOTE | 2024-05-30 00:11 | HPS.HSE ---
Family Physician
-
Family Physician: Kobe Meyer
Chief Complaint
-
Atrial Fibrillation
History of Present Illness
68 year old male who underwent AVR/Asc. Ao. replacement by Dr. Meraz on 05/18/24. He was discharged to home on 05/24/24. During his admission he did have a brief episode of sinus tachycardia and atrial fibrillation for which amiodarone was started.
He was discharged in NSR. Over the past 2 days he has stated he was feeling strange and upon checking his heart rate today noticed it was 140. He presented to [facility] and was found to be in atrial fibrillation. This was
treated with Cardizem and the patient converted to NSR. Dr. Zepeda was notified by ED physician and recommended transfer to [place] for observation.
Medical History
Past Medical History
Past Medical History: Reports Arrhythmia (h/o Afib), HTN, Hypercholesterolemia and NIDDM
Additional Past Medical History:
ROBERT
BPH
seasonal allergies
RBBB
Past Surgical History: Reports Cardiac (AVR/Asc. Ao. repair)
Social History
Tobacco: Non-smoker
Alcohol: Occasional
Drug: Marijuana
Family History
Family History: Not pertinent
Allergies / Home Medications
Allergies reflects when Allergies were last updated in [facility].
Home Medications with original date entered in [facility]
Allergy/Medication List:
PCN, Sulfa, Erythromycin
Review of Systems
-
History Source: Patient
Constitutional: Reports No Symptoms
EENT: Reports No Symptoms
Respiratory: Reports No Symptoms
Cardiac: Reports See HPI and Palpitations
Abdomen/GI: Reports No Symptoms
: Reports No Symptoms
Neurological: Reports No Symptoms
Endocrine: Reports No Symptoms
Physical Exam
Vital Signs
Vital Signs
Temp Pulse Resp BP Pulse Ox
98.5 F 70 20 98/63 96
05/29/24 23:45 05/29/24 23:45 05/29/24 23:45 05/29/24 23:44 05/29/24 23:45
Physical Exam
General: Well Developed, Well Nourished and No Apparent Distress
HEENT: NormoCephalic, Atraumatic and PERRLA
Respiratory: Clear
Cardiac: Regular Rhythm; No Murmur or Peripheral Edema
Breast: N/A
GI: Soft, Non Tender, Non Distended and Normal Bowel Sounds
Rectal: Deferred by Provider
Genito-urinary: Deferred by me
Musculoskeletal: No Edema
Skin: Warm and Dry; No Rash
Neuro: AO x 3
Impression/Plan
-
IMPRESSION:
s/p AVR/Asc. Ao. replacement
PAF
PLAN:
Will observe overnight as he is currently in NSR.
Cardiology consult for medical management of PAF (? adding cardizem, ?OAC)
[2024-05-30] MEDS: TYLENOL 650 MG PO (00:30)
--- NOTE | 2024-05-30 02:50 | PTCARENOTE ---
Received as a direct admit form [place]/[facility]. SR on admission in the 70's. Took tylenol for mild chest incision discomfort, otherwise had no complaints. Has had a couple short bursts of A-fib in the 140's then quickly back to .
[2024-05-30 05:09] LABS: Hemoglobin 9.1 g/dL (13.0-18.0); Mean Corp Hgb Conc. 33.7 g/dL (33.0-37.0); Mean Corpuscular Hgb 30.7 pg (27.0-31.0); Mean Corpuscular Volume 91.2 fL (80.0-94.0); Mean Platelet Volume 9.2 fL (7.4-10.4); Platelet Count 285 10^3/uL (130-400); Red Blood Cell Count 2.96 10^6/uL (4.70-6.10)
[2024-05-30 05:36] LABS: Blood Urea Nitrogen 17 mg/dl (9-20); Calcium 8.5 mg/dl (8.4-10.2); Carbon Dioxide 22 mmol/L (22-30); Chloride 103 mmol/L (98-107); Estimated Creatinine Clearance > 125 ml/min; Glucose 96 mg/dl (70-99); Magnesium 2.2 mg/dl (1.6-2.3); Potassium 4.3 mmol/L (3.5-5.1); Sodium 134 mmol/L (135-145); eGFR > 60.00
--- NOTE | 2024-05-30 07:19 | PTCARENOTE ---
Continues with periods of a-fib/flutter, rhythm mostly SR in the 60-80's.
--- NOTE | 2024-05-30 08:41 | CON.CAR ---
Addendum entered and electronically signed by Thomas Morales MD 05/30/24 11:37:
I saw and examined the patient.
The MASTER PLUMBER's note was reviewed and I agree with the note.
Comment: 68-year-old male with dyslipidemia, prediabetes (hemoglobin A1c 6.1), RBBB, bicuspid AV with severe , and aortic root dilatation who is now s/p bio AVR #25 Inspiris RESILIA and ascending aortic replacement with a 30 mm Hemashield graft
with Dr. Meraz, 05/18/24, who presented to [facility] with complaints of elevated pulse, fatigue and shortness of breath yesterday. He was noted to be in rapid A-fib and was treated with IV Cardizem drip and converted to normal
sinus rhythm. He was transferred and has maintained NSR, however, he has short episodes of a tach/AF.
- Increase metop to 50 bid
- cont amio
- start eliquis 5 mg bid
Original Note:
Consultation
Consultation Request
Date/Time Consultation Requested: 05/30/2024 12:30 AM
Date/Time Consultation Performed: 05/30/24 8 AM
Requesting Provider: Jose Callaahn PA-C
Performing Provider: JENSEN Toribio for Dr. Morales
Reason for Consultation: Recurrent rapid atrial fibrillation
Medical History
-
Chief Complaint: Recurrent atrial fibrillation
History of Present Illness:
Mr. Giraldo is a 68-year-old male with dyslipidemia, prediabetes (hemoglobin A1c 6.1), RBBB, bicuspid AV with severe , and aortic root dilatation who is now s/p bio AVR #25 Inspiris RESILIA and ascending aortic replacement with a 30 mm Hemashield
graft with Dr. Meraz, 05/18/24, who presented to [facility] with complaints of elevated pulse, fatigue and shortness of breath yesterday. He was noted to be in rapid A-fib and was treated with IV Cardizem drip and converted to
normal sinus rhythm. He was transferred to [facility] on CT surgery service for monitoring. We are consulted for recurrent rapid atrial fibrillation, rates currently in the 80s but with salvos of A-fib/A. tach up to 130 bpm. He denies
any palpitations or chest pain currently or at the time of A-fib. His symptoms were fatigue and shortness of breath.
Past Medical History
Past Medical History: Other (As above)
Past Surgical History: Other (As above)
Social History
Tobacco: Non-Smoker
Alcohol: None
Living: With Family
Family History
Family History: Reviewed & Not Pertinent
Allergies / Home Medications
Allergy/AdvReac Type Severity Reaction Status Date / Time
azithromycin Allergy Nausea Verified 05/22/24 22:38
erythromycin base Allergy Nausea Verified 05/22/24 22:38
Penicillins Allergy Rash Verified 04/29/24 12:14
Sulfa (Sulfonamide Allergy Rash Verified 04/29/24 12:14
Antibiotics)
�Medication �Instructions �Recorded �Confirmed �Type
aspirin 81 mg chewable tablet 81 mg PO DAILY Blood Clot 12/07/21 05/18/24 History
Prevention/Tx
atorvastatin 40 mg tablet 40 mg PO DAILY High Cholesterol 12/07/21 05/18/24 History
fexofenadine 180 mg tablet 180 mg PO DAILY Allergies 12/07/21 05/18/24 History
phenylephrine HCl 10 mg tablet 10 mg PO TIDPRN PRN allergies/post 12/07/21 05/18/24 History
(Sudafed PE) nasal drip
valacyclovir 500 mg tablet 500 mg PO DAILY Infection 12/07/21 05/18/24 History
coenzyme Q10 200 mg capsule (Co 200 mg PO DAILY Supplement 03/23/24 05/18/24 History
Q-10)
rrgdcagd-ady-jjgal acid 0.4 1 tab PO DAILY Supplement 03/23/24 05/18/24 History
mg-lycopene 300 mcg-lutein 250 mcg
tablet (Centrum Silver)
omega 2-luz-uqq-fish oil 1,200 mg 1 cap PO DAILY Supplement 03/23/24 05/18/24 History
(144 mg-216 mg) capsule (Fish Oil)
tamsulosin 0.4 mg capsule 0.4 mg PO DAILY Urinary Issue 03/23/24 05/18/24 History
Medical Cannibus 1 dose PO PRN PRN anxiety, pain 04/29/24 05/18/24 History
acetaminophen 325 mg tablet 650 mg (2 x 325 mg) PO Q4HPRN PRN 05/22/24 Rx
mild pain,headache,temp >101F #0
tabs
amiodarone 200 mg tablet (Pacerone) 200 mg PO BID #60 tabs 05/24/24 Rx
ascorbic acid (vitamin C) 500 mg 1,000 mg (2 x 500 mg) PO DAILY #30 05/24/24 Rx
tablet (Vitamin C) tabs
ferrous sulfate 325 mg (65 mg 325 mg PO DAILY #30 tabs 05/24/24 Rx
iron) tablet (FeroSul)
metoprolol succinate 25 mg 25 mg PO BID #60 tabs 05/24/24 Rx
tablet,extended release 24 hr
oxycodone 5 mg tablet 5 mg PO Q4HPRN PRN moderate pain 05/24/24 Rx
#30 tabs
Review of Systems
-
History Source: Patient
All other systems: Negative unless noted
Physical Exam
Vital Signs
Temp Pulse Resp BP Pulse Ox
98.3 F 72 18 124/76 97
05/30/24 06:54 05/30/24 07:00 05/30/24 06:54 05/30/24 06:55 05/30/24 06:54
Lab Results
05/30/24 04:36
05/30/24 04:36
Physical Exam
General: Well Developed, Well Nourished and No Apparent Distress
HEENT: Normocephalic, Anicteric and Moist Mucous Membranes
Respiratory: Clear and Non Labored Respirations
Cardiac: S1/S2 and Irregular Rhythm (Tachycardia at times)
Breast: Deferred by me
GI: Soft, Non Tender, Non Distended and Normal Bowel Sounds
Rectal: Deferred by Provider
Genito-urinary: No Costovertebral Tender
Musculoskeletal: No Clubbing, No Cyanosis and No Edema
Skin: Warm and Dry
Neuro: AO x 3
Hematologic/Lymphatic: No Lymphadenopathy
Psych: Calm
Impression / Plan
-
Atrial fibrillation - recurrent with rapid ventricular response.
-Treated with IV Cardizem at [facility] and converted to normal sinus rhythm.
-Postop he had brief 2 minutes of rapid A-fib that resolved on its own.
-Has been on amiodarone 200 mg twice daily and Toprol 25 mg twice daily.
-With recurrent salvos of rapid A-fib/Atach currently, will increase Toprol to 50 mg twice daily.
-[id number] VASC score is 1 for age, prediabetes, favor OAC therapy with Eliquis 5 mg twice daily.
-Continue to monitor rates with medication changes.
Bicuspid AV with severe - S/P #25 Inspiris RESILIA SAVR with Dr. Meraz, 05/18/24.
-Stable.
-Incision healing well.
-Management per CTS.
Ascending aortic aneurysm - s/p ascending aortic replacement with #30 Hemashield [place] Graft by Dr. Meraz 05/18/24.
-Stable.
RBBB - Chronic, stable.
Dyslipidemia - Chronic, stable.
-Continue atorvastatin.
Prediabetes - Hemoglobin A1c 6.1%
-Follow up with PCP.
Data Reviewed
-
EKG: Tracing Personally Visualized and interpreted (Normal sinus rhythm 63 bpm nonspecific T wave abnormality)
Medical Tests (Nuc Med, Echo etc): Report Reviewed by me (Echo 05/21/2024: LVEF normal)
Labs: Labs Reviewed by me
Old Records: Reviewed
[2024-05-30] MEDS: LOW STRENGTH ASPIRIN 81 MG PO (09:39)
[2024-05-30] MEDS: ELIQUIS 5 MG PO ×2 (09:39→20:05)
[2024-05-30] MEDS: VITAMIN C 1000 MG PO (09:39)
[2024-05-30] MEDS: CLARITIN 10 MG PO (09:39)
[2024-05-30] MEDS: LIPITOR 40 MG PO (09:39)
[2024-05-30] MEDS: FLOMAX 0.400000000000000022 MG PO (09:39)
[2024-05-30] MEDS: FEOSOL 325 MG PO (09:39)
[2024-05-30] MEDS: PACERONE 200 MG PO ×2 (09:39→20:06)
[2024-05-30] MEDS: VALTREX 500 MG PO (09:40)
[2024-05-30] MEDS: SENOKOT-S 1 TABLET PO (10:06)
[2024-05-30] MEDS: TOPROL XL 50 MG PO ×2 (10:06→20:06)
--- NOTE | 2024-05-30 10:23 | PTCARENOTE ---
received patient this am sitting up in chair asking many questions, answered questions along with doctors that entered room. sternum [place], CT sites has dsg. which are D/I. patient is in NSR, VSS.
[2024-05-30 12:08] LABS: TSH Reflex To Free T4 5.47 uIU/ml (0.47-4.68)
[2024-05-30 12:37] LABS: Free T4 1.15 ng/dl (0.78-2.19)
[2024-05-31] VITALS (10 sets, daily range): BP systolic 109–142; BP diastolic 64–89; BMI 36.5
--- NOTE | 2024-05-31 00:58 | PTCARENOTE ---
No complaints of discomfort this evening. Shortly after [place] patient rang and requested previous chest tube site dressing to be changed, Changed for scant amount of serosanguineous drainage. Sleeping at intervals. Mostly SR in the 60's with short
bursts of a-fib as fast as 140.
[2024-05-31 05:27] LABS: Hematocrit 25.9 % (39.0-52.0); Hemoglobin 9.1 g/dL (13.0-18.0); Mean Corp Hgb Conc. 35.1 g/dL (33.0-37.0); Mean Corpuscular Hgb 30.6 pg (27.0-31.0); Mean Corpuscular Volume 87.2 fL (80.0-94.0); Mean Platelet Volume 8.6 fL (7.4-10.4); Platelet Count 298 10^3/uL (130-400); Red Blood Cell Count 2.97 10^6/uL (4.70-6.10); Red Cell Dist. Width 13.9 % (11.5-14.5); White Blood Cell Count 8.3 10^3/uL (4.8-10.8)
--- NOTE | 2024-05-31 05:42 | W.PN.CT ---
Today's Communication / Plan
-
-Overnight noted frequent PAF with RVR up to 150s, BP stable. Has slight conversion pause and resumes sinus rhythm in the upper 50s, this AM he's in NSR at 60
-Currently on amio 200 mg BID and Toprol XL 50 mg BID
-Continue ASA, atorvastatin, started on Eliquis
-appreciate ongoing cardiology recs
Assessment / Plan
-
-PAF with RVR
-Bicuspid AV with severe , and aortic root dilatation s/p bio AVR #25 Inspiris RESILIA and ascending aortic replacement with a 30 mm Hemashield graft with Dr. Meraz, 05/18/24 POD #14
He presented to [facility] with complaints of elevated pulse, fatigue and shortness of breath yesterday. He was noted to be in rapid A-fib and was treated with IV Cardizem drip and converted to normal sinus rhythm. He was transferred
and has maintained NSR, however, he has short episodes of a tach/AF
-RBBB
-HLD
-Pre-DM
Subjective
Procedure
Bicuspid AV with severe , and aortic root dilatation s/p bio AVR #25 Inspiris RESILIA and ascending aortic replacement with a 30 mm Hemashield graft with Dr. Meraz, 05/18/24 now c/b and readmitted with PAF with RVR
-
Date of Service: May 31, 2024
Objective Data
-
Lab Results
05/31/24 05:12
Vital Signs
Vital Signs
Temp Pulse Resp BP Pulse Ox
98.3 F 63 19 142/77 97
05/31/24 04:35 05/31/24 05:01 05/31/24 04:35 05/31/24 05:01 05/31/24 04:35
CT Intake/Output/Weight
05/30/24 05/30/24 05/31/24
06:59 18:59 06:59
Intake Total 355 / 355
Balance 355 / 355
SaO2: 97
Physical Exam
-
General: Awake and Oriented
Cardiovascular: Regular rate & rhythm
Respiratory: Clear
Sternum: Stable
Extremities: No Edema and No Erythema
Data Reviewed
-
Lab Results: Results Reviewed
Medications: Active Meds Reviewed
Chest X-Ray: Report Reviewed
ECG: Report Reviewed
[2024-05-31 05:54] LABS: Blood Urea Nitrogen 16 mg/dl (9-20); Calcium 8.7 mg/dl (8.4-10.2); Carbon Dioxide 21 mmol/L (22-30); Chloride 104 mmol/L (98-107); Estimated Creatinine Clearance > 125 ml/min; Glucose 94 mg/dl (70-99); Potassium 4.3 mmol/L (3.5-5.1); Sodium 133 mmol/L (135-145); eGFR > 60.00
[2024-05-31] MEDS: VITAMIN C 1000 MG PO (08:22)
[2024-05-31] MEDS: LIPITOR 40 MG PO (08:22)
[2024-05-31] MEDS: FEOSOL 325 MG PO (08:22)
[2024-05-31] MEDS: CLARITIN 10 MG PO (08:22)
[2024-05-31] MEDS: LOW STRENGTH ASPIRIN 81 MG PO (08:22)
[2024-05-31] MEDS: PACERONE 200 MG PO ×2 (08:22→19:55)
[2024-05-31] MEDS: VALTREX 500 MG PO (08:22)
[2024-05-31] MEDS: ELIQUIS 5 MG PO ×2 (08:22→19:54)
[2024-05-31] MEDS: FLOMAX 0.400000000000000022 MG PO (08:22)
[2024-05-31] MEDS: TOPROL XL 50 MG PO ×2 (08:22→19:54)
--- NOTE | 2024-05-31 10:35 | PTCARENOTE ---
patient had BM in toilet with kat red blood, patient stated that he does have hemorrhoids. notified Aleyda MONDRAGON, ordered GI consult.
--- NOTE | 2024-05-31 11:35 | W.PN.CD ---
Today's Communication / Plan
-
cont amio and metop
monitor tele
GI consult for bright red blood per rectum
Impression / Plan
-
S: 68-year-old male with dyslipidemia, prediabetes (hemoglobin A1c 6.1), RBBB, bicuspid AV with severe , and aortic root dilatation who is now s/p bio AVR #25 Inspiris RESILIA and ascending aortic replacement with a 30 mm Hemashield graft with
Kt, 05/18/24, who presented to [facility] with complaints of elevated pulse, fatigue and shortness of breath yesterday. He was noted to be in rapid A-fib and was treated with IV Cardizem drip and converted to normal sinus rhythm.
He was transferred and has maintained NSR, however, he continues to have short runs of AF.
Atrial fibrillation - recurrent with rapid ventricular response.
-Treated with IV Cardizem at [facility] and converted to normal sinus rhythm.
-Postop he had brief 2 minutes of rapid A-fib that resolved on its own.
-Has been on amiodarone 200 mg twice daily and cont metop 50 mg monitor tele
-[id number] VASC score is 1 for age, prediabetes, trialed Eliquis and head GI bleeding--> GI consult
-Continue to monitor rates with medication changes.
Bicuspid AV with severe - S/P #25 Inspiris GUILLEA SAVR with Dr. Meraz, 05/18/24.
-Stable.
-Incision healing well.
-Management per CTS.
Ascending aortic aneurysm - s/p ascending aortic replacement with #30 Hemashield [place] Graft by Dr. Meraz 05/18/24.
-Stable.
RBBB - Chronic, stable.
Dyslipidemia - Chronic, stable.
-Continue atorvastatin.
Prediabetes - Hemoglobin A1c 6.1%
-Follow up with PCP.
Physical Exam
Vital Signs/Labs
Vital Signs
Temp Pulse Resp BP Pulse Ox
98.8 F 66 16 113/70 95
05/31/24 08:20 05/31/24 11:00 05/31/24 08:20 05/31/24 08:22 05/31/24 08:30
05/30/24 05/31/24 06/01/24
06:59 06:59 06:59
Actual Weight 267 lb 13.786 oz 268 lb 15.423 oz
05/31/24 05:12
05/31/24 05:12
Magnesium 2.2 mg/dl (1.6-2.3) 05/30/24 04:36
Free T4 1.15 ng/dl (0.78-2.19) 05/30/24 04:36
Physical Exam
Constitutional: No acute distress
EENT: Anicteric
Cardiovascular: Rhythm & rate is regular
Respiratory: Respiratory effort normal and Lungs clear to auscul.
GI: Soft
Neuro/Psych: AO x 3
Data Reviewed
-
Date of Service: May 31, 2024
EKG: Tracing Personally Visualized and interpreted (sr)
Echo: Report Reviewed by me
Labs: Labs Reviewed by me
--- NOTE | 2024-05-31 12:49 | W.PN.HOSP.TC ---
Today's Communication/Plan
-
see A/P
Assessment / Plan
Assessment / Plan
HPI: 68 year old male with PMH dyslipidemia, prediabetes (A1c 6.1), RBBB, bicuspid AV with severe and aortic root dilatation who is s/p bio AVR and ascending aortic replacement by Dr. Meraz 05/18/24, who presented to [facility]
with complaints of elevated pulse, fatigue and shortness of breath. He was noted to be in rapid A-fib and was treated with IV Cardizem drip and converted to normal sinus rhythm. He was transferred and has remained in NSR.
During his admission here, he was noted to have rectal bleeding. Eliquis that was started has since been discontinued. GI consulted for rectal bleeding workup. Patient was transferred to the hospitalist service for continued care.
A/P:
# rectal bleed likely due to chronic hemorrhoid, exacerbated by Eliquis
Hold further Eliquis
Check iron panel, B12, folate levels
GI consulted by Card
# Paroxysmal A-fib
cont amio
cont Toprol 50 mg BID
Eliquis on hold
Card following
# Recent AVR/Asc Ao replacement
# Mild hyponatremia
Sodium level 133, continue to monitor
# Possible subclinical hypothyroidism
TSH 5.47, free T4 at 1.15
Recommend outpatient thyroid function test eval in 4 weeks
# dyslipidemia
# Prediabetes (A1c 6.1)
DVT ppx: SCD
FC
Anticipated Discharge: 24 - 48 hours
Subjective/Interval History
-
Date of Service: May 31, 2024
Objective Data
-
Labs:
Laboratory Results
05/31/24
05:12
WBC 8.3
Hgb 9.1 L
Hct 25.9 L
Plt Count 298
Sodium 133 L
Potassium 4.3
Chloride 104
Carbon Dioxide 21 L
BUN 16
Creatinine 0.6 L
Glucose 94
Calcium 8.7
Vital Signs:
Vital Signs
Temp Pulse Resp BP Pulse Ox
36.9 C 64 18 113/69 96
05/31/24 11:53 05/31/24 11:53 05/31/24 11:53 05/31/24 11:53 05/31/24 11:53
I&O
05/30/24 05/31/24 06/01/24
06:59 06:59 06:59
Intake Total 355 / 355
Balance 355 / 355
Review of Systems
-
Abdomen/GI: Reports Other (Mild rectal bleeding); Denies Abdominal Pain
Physical Exam
-
General: Well Developed, Well Nourished, No Apparent Distress, Comfortable, Conversant and Obese; Negative Respiratory Distress
HEENT: Normocephalic, Atraumatic, Nose Appears Normal and Ears Appear Normal; Negative Oxygen
Respiratory: Clear to Auscultation and Non Labored Respirations; Negative Accessory Resp Muscle Use
Cardiac: Regular Rhythm and S1/S2
GI: Soft, Nontender, Nondistended and Normal Bowel Sounds
Skin: Warm and Dry
Neuro: Awake, Alert, Oriented, AO x 3 and Nonfocal/Grossly Intact
Psych: Calm and Intact Judgement/Insight
Data Reviewed
-
Labs: Labs Reviewed by me
--- NOTE | 2024-05-31 13:12 | CON.GI ---
Consultation
-
Date/Time Consultation Requested: 05/31/2024
Date/Time Consultation Performed: 05/31/2024
Performing Provider: Tony Fraire
Reason for Consultation: rectal bleeding
Medical History
Chief Complaint / HPI
Chief Complaint: rectal bleeding
History of Present Illness:
The patient is a 68 year old male with h/o dyslipidemia, prediabetes (hemoglobin A1c 6.1), RBBB, bicuspid AV with severe s/p bioprosthetic AVR and ascending aortic replacement on 05/18/24 who p/w palpitation, dyspnea, and fatigue to [place]
[facility] He was noted to be in rapid A-fib and was treated with IV Cardizem drip, tx to for further care. He is being mx with amio and metoprolol, and started on Eliquis with subsequent rectal bleed. GI consulted for evaluation of this. Pt
reports having intermittent rectal bleeding for months prior to surgery, always with BM and with straining. Had 1 episode of rectal bleeding after Eliquis.
Past Medical History
Past Medical History: Arrhythmias, HTN, Hypercholesterolemia and NIDDM
Past Surgical History: Other
Social History
Tobacco: Non-Smoker
Alcohol: Occasional
Allergies / Home Medications
Allergy/AdvReac Type Severity Reaction Status Date / Time
azithromycin Allergy Nausea Verified 05/22/24 22:38
erythromycin base Allergy Nausea Verified 05/22/24 22:38
Penicillins Allergy Rash Verified 04/29/24 12:14
Sulfa (Sulfonamide Allergy Rash Verified 04/29/24 12:14
Antibiotics)
�Medication �Instructions �Recorded
aspirin 81 mg chewable tablet 81 mg PO DAILY Blood Clot 12/07/21
Prevention/Tx
atorvastatin 40 mg tablet 40 mg PO DAILY High Cholesterol 12/07/21
fexofenadine 180 mg tablet 180 mg PO DAILY Allergies 12/07/21
phenylephrine HCl 10 mg tablet 10 mg PO TIDPRN PRN allergies/post 12/07/21
(Sudafed PE) nasal drip
valacyclovir 500 mg tablet 500 mg PO DAILY Infection 12/07/21
coenzyme Q10 200 mg capsule (Co 200 mg PO DAILY Supplement 03/23/24
Q-10)
othcquvt-zuc-nwmep acid 0.4 1 tab PO DAILY Supplement 03/23/24
mg-lycopene 300 mcg-lutein 250 mcg
tablet (Centrum Silver)
omega 8-akn-mbx-fish oil 1,200 mg 1 cap PO DAILY Supplement 03/23/24
(144 mg-216 mg) capsule (Fish Oil)
tamsulosin 0.4 mg capsule 0.4 mg PO DAILY Urinary Issue 03/23/24
Medical Cannibus 1 dose PO PRN PRN anxiety, pain 04/29/24
acetaminophen 325 mg tablet 650 mg (2 x 325 mg) PO Q4HPRN PRN 05/22/24
mild pain,headache,temp >101F #0
tabs
amiodarone 200 mg tablet (Pacerone) 200 mg PO BID #60 tabs 05/24/24
ascorbic acid (vitamin C) 500 mg 1,000 mg (2 x 500 mg) PO DAILY #30 05/24/24
tablet (Vitamin C) tabs
ferrous sulfate 325 mg (65 mg 325 mg PO DAILY #30 tabs 05/24/24
iron) tablet (FeroSul)
metoprolol succinate 25 mg 25 mg PO BID #60 tabs 05/24/24
tablet,extended release 24 hr
oxycodone 5 mg tablet 5 mg PO Q4HPRN PRN moderate pain 05/24/24
#30 tabs
Review of Systems
Vital Signs
Temp Pulse Resp BP Pulse Ox
98.4 F 64 18 113/69 96
05/31/24 11:53 05/31/24 11:53 05/31/24 11:53 05/31/24 11:53 05/31/24 11:53
Physical Exam
Exam
General: Well Developed and Well Nourished
HEENT: Normocephalic and Anicteric
Respiratory: Clear
Cardiac: S1/S2
GI: Soft, Non Tender, Non Distended and Normal Bowel Sounds
Results
WBC 8.3 10^3/uL (4.8-10.8) 05/31/24 05:12
Hgb 9.1 g/dL (13.0-18.0) L 05/31/24 05:12
Hct 25.9 % (39.0-52.0) L 05/31/24 05:12
MCV 87.2 fL (80.0-94.0) 05/31/24 05:12
Plt Count 298 10^3/uL (130-400) 05/31/24 05:12
Sodium 133 mmol/L (135-145) L 05/31/24 05:12
Potassium 4.3 mmol/L (3.5-5.1) 05/31/24 05:12
Chloride 104 mmol/L (98-107) 05/31/24 05:12
Carbon Dioxide 21 mmol/L (22-30) L 05/31/24 05:12
BUN 16 mg/dl (9-20) 05/31/24 05:12
Creatinine 0.6 mg/dL (0.7-1.3) L 05/31/24 05:12
Calcium 8.7 mg/dl (8.4-10.2) 05/31/24 05:12
Diagnostic Image Results:
Prior GI Procedures:
EGD:
Colonoscopy:
Assessment / Plan
-
68 year old male with h/o dyslipidemia, prediabetes (hemoglobin A1c 6.1), RBBB, bicuspid AV with severe s/p bioprosthetic AVR and ascending aortic replacement on 05/18/24 who p/w new onset afib, GI being consulted for evaluation of rectal bleeding
after trial of Eliquis.
Impression / Rec:
1. Rectal bleeding - patient had 1 episode of maroon-colored bleeding mixed with stool since being started on Eliquis. This is in setting of previous history intermittent rectal bleeding, which always occurred with bowel movements worse with
straining highly suggestive of hemorrhoidal bleeding. He has known hemorrhoids. Patient had elective colonoscopy about 3 to 4 years ago, which reportedly was normal and was recommended to repeat in 10 years. Patient's Hgb stable at 9.1. Given
his history, known history of hemorrhoids, previous colonoscopy findings, and stable Hgb, his rectal bleeding seems to be hemorrhoidal bleeding augmented by Eliquis. No plan for endoscopic evaluation. Continue with Eliquis and will follow
clinically.
Total Time Spent with Patient (in minutes): 55
-
-
Thank you for consultation and allowing me to participate in the patient's care. Please call the software applications engineer GI physician during the after hours with any questions or concerns.
[2024-05-31 13:32] LABS: Iron 25 ug/dl (49-181)
[2024-05-31 13:42] LABS: Percent Saturation 10 % (20-50); Total Iron Binding Capacity 248 ug/dl (261-462)
[2024-05-31 15:09] LABS: Folate > 20.0 ng/ml (2.76-20); Vitamin B12 739 pg/ml (239-931)
[2024-05-31] MEDS: TYLENOL 650 MG PO (19:55)
--- NOTE | 2024-05-31 22:15 | PTCARENOTE ---
Patient HR in 130's to 140's, afib w/RVR, EKG done and confirmed. Unsustained. Patient going between SR HR 60-90's then Afib w/RVR 110's to 140's. House provider notified. Patient states he can feel when he is in afib, denies chest pain, SOB.
[2024-06-01 02:17] VITALS: BP 104/51
[2024-06-01 03:40] LABS: Hematocrit 28.5 % (39.0-52.0); Hemoglobin 9.5 g/dL (13.0-18.0); Mean Corp Hgb Conc. 33.3 g/dL (33.0-37.0); Mean Corpuscular Hgb 30.2 pg (27.0-31.0); Mean Corpuscular Volume 90.5 fL (80.0-94.0); Mean Platelet Volume 8.5 fL (7.4-10.4); Platelet Count 327 10^3/uL (130-400); Red Blood Cell Count 3.15 10^6/uL (4.70-6.10); Red Cell Dist. Width 13.7 % (11.5-14.5); White Blood Cell Count 7.5 10^3/uL (4.8-10.8)
[2024-06-01 04:02] LABS: Blood Urea Nitrogen 17 mg/dl (9-20); Calcium 8.6 mg/dl (8.4-10.2); Carbon Dioxide 25 mmol/L (22-30); Chloride 103 mmol/L (98-107); Estimated Creatinine Clearance > 125 ml/min; Glucose 92 mg/dl (70-99); Magnesium 2.1 mg/dl (1.6-2.3); Potassium 4.5 mmol/L (3.5-5.1); Sodium 133 mmol/L (135-145); eGFR > 60.00
[2024-06-01 07:04] VITALS: BP 120/76
[2024-06-01 07:07] LABS: Glucose - Point of Care 106 mg/dl (70-99)
[2024-06-01 07:11] VITALS: BMI 36.2
[2024-06-01] MEDS: PACERONE 200 MG PO (07:50)
[2024-06-01] MEDS: CLARITIN 10 MG PO (07:51)
[2024-06-01] MEDS: VALTREX 500 MG PO (07:51)
[2024-06-01] MEDS: FEOSOL 325 MG PO (07:51)
[2024-06-01] MEDS: ELIQUIS 5 MG PO (07:51)
[2024-06-01] MEDS: FLOMAX 0.400000000000000022 MG PO (07:51)
[2024-06-01] MEDS: TOPROL XL 50 MG PO (07:51)
[2024-06-01] MEDS: VITAMIN C 1000 MG PO (07:51)
[2024-06-01] MEDS: LOW STRENGTH ASPIRIN 81 MG PO (07:51)
[2024-06-01] MEDS: LIPITOR 40 MG PO (07:51)
--- NOTE | 2024-06-01 09:00 | PTCARENOTE ---
Received patient this am siting up in chair eating breakfast. Monitor shows NSR/Afib, VSS. at present HR is controlled and patient feels well. awaiting MD .
--- NOTE | 2024-06-01 10:57 | CM ---
Addendum entered by Juliet Srinivasan 06/01/24 11:56:
Telephone call to [facility] to check on co-pay for Eliquis 5 mg po bid. His co-pay for the first script would be $554.71. He has a deductible of $545.00 that has to be met. His next script would be $138.41. Reviewed above with him. He is agreeable to
the co-pay/ Placed the one month free coupon in his red discharge folder.
Original Note:
Reviewed chart. Met with and Mrs. Giraldo to review discharge plans. He states prior to admission he resides with his spouse in a three story home with four steps to enter. He states he has a first floor set-up. He states prior to admission he
was independent with ambulation and adls. He states he does not have any DME in the home. He states the Cardiothoracic Transitional Care Nurse did see him at home. He states he has a prescription plan with [employer] and uses [facility]. Medical
work-up in progress. The discharge plan is to return home with his spouse when medically stable.
--- NOTE | 2024-06-01 12:18 | W.PN.GI.CBS2 ---
Today's Communication / Plan
-
stool softeners, GI s/o.
Assessment / Plan
-
68 year old male with h/o dyslipidemia, prediabetes (hemoglobin A1c 6.1), RBBB, bicuspid AV with severe s/p bioprosthetic AVR and ascending aortic replacement on 05/18/24 who p/w new onset afib, GI being consulted for evaluation of rectal bleeding
after trial of Eliquis.
Impression / Rec:
1. Rectal bleeding - patient had 1 episode of maroon-colored bleeding mixed with stool since being started on Eliquis. This is in setting of previous history intermittent rectal bleeding, which always occurred with bowel movements worse with
straining highly suggestive of hemorrhoidal bleeding. He has known hemorrhoids. Patient had elective colonoscopy about 3 to 4 years ago, which reportedly was normal and was recommended to repeat in 10 years. Patient's Hgb stable at 9.1. Given
his history, known history of hemorrhoids, previous colonoscopy findings, and stable Hgb, his rectal bleeding seems to be hemorrhoidal bleeding augmented by Eliquis.
Had brown BM this AM. Hgb 9.5 today. Likely hemorrhoidal bleeding. Can continue with Eliquis if needed, will need bowel regimen with regular stool softeners. GI will sign off, pls call with questions.
Total Time Spent with Patient (in minutes): 35
Subjective
Subjective
Date of Service: June 01, 2024
had brown BM today
Objective
Data Reviewed
Laboratory Data:
Laboratory Results
06/01/24 03:06
06/01/24 03:06
Laboratory Results
Magnesium 2.1 mg/dl (1.6-2.3) 06/01/24 03:06
Vital Signs and I&O:
Vital Signs
Temp Pulse Resp BP Pulse Ox
98.2 F 66 20 120/76 98
06/01/24 07:02 06/01/24 08:00 06/01/24 07:02 06/01/24 07:51 06/01/24 08:35
I&O
05/31/24 06/01/24 06/02/24
06:59 06:59 06:59
Intake Total 355 / 355 120 / 120
Balance 355 / 355 120 / 120
[2024-06-01 12:20] VITALS: BP 118/69
--- NOTE | 2024-06-01 14:27 | W.PN.CD ---
Today's Communication / Plan
-
Amio 200 bid for 14 days then Amio 200 a day for 14 more days then stop Amiodarone
Metoprolol has been increased c/w recent discharge
Impression / Plan
-
S: 68-year-old male with dyslipidemia, prediabetes (hemoglobin A1c 6.1), RBBB, bicuspid AV with severe , and aortic root dilatation who is now s/p bio AVR #25 Inspiris RESILIA and ascending aortic replacement with a 30 mm Hemashield graft with
Kt, 05/18/24, who presented to [facility] with complaints of elevated pulse, fatigue and shortness of breath yesterday. He was noted to be in rapid A-fib and was treated with IV Cardizem drip and converted to normal sinus rhythm.
He was transferred and has maintained NSR, however, he continues to have short runs of AF.
Atrial fibrillation - recurrent with rapid ventricular response.
- Just short salvos. Amio/metoprolol
- [id number] VASC score is 1 for age, prediabetes recent surgery => now on Eliquis and GI ok with resumption
- May not need superintendent terminal Eliquis.
Hx of Ascending aortic aneurysm Bicuspid AV with severe
- S/P ascending aortic replacement with #30 Hemashield [place] Graft #25 Inspiris RESILIA SAVR with Dr. Meraz, 05/18/24.
RBBB - Chronic, stable.
Dyslipidemia - Chronic, stable => statin
Prediabetes - Hemoglobin A1c 6.1%
Subjective:
Doing well.
Physical Exam
Vital Signs/Labs
Vital Signs
Temp Pulse Resp BP Pulse Ox
98.7 F 64 20 118/69 98
06/01/24 12:17 06/01/24 13:00 06/01/24 12:17 06/01/24 12:20 06/01/24 12:17
05/31/24 06/01/24 06/02/24
06:59 06:59 06:59
Actual Weight 122 kg 120.8 kg
06/01/24 03:06
06/01/24 03:06
Magnesium 2.1 mg/dl (1.6-2.3) 06/01/24 03:06
Free T4 1.15 ng/dl (0.78-2.19) 05/30/24 04:36
Physical Exam
Constitutional: No acute distress
EENT: Anicteric
Cardiovascular: Rhythm & rate is regular
Respiratory: Respiratory effort normal and Lungs clear to auscul.
GI: Soft and Distention absent
Data Reviewed
-
Date of Service: June 01, 2024
--- NOTE | 2024-06-01 15:10 | W.PN.HOSP.TC ---
Today's Communication/Plan
-
dc home
Assessment / Plan
Assessment / Plan
HPI: 68 year old male with PMH dyslipidemia, prediabetes (A1c 6.1), RBBB, bicuspid AV with severe and aortic root dilatation who is s/p bio AVR and ascending aortic replacement by Dr. Meraz 05/18/24, who presented to [facility]
with complaints of elevated pulse, fatigue and shortness of breath. He was noted to be in rapid A-fib and was treated with IV Cardizem drip and converted to normal sinus rhythm. He was transferred and has remained in NSR.
During his admission here, he was noted to have rectal bleeding. Eliquis that was started has since been discontinued. GI consulted for rectal bleeding workup. Patient was transferred to the hospitalist service for continued care.
Assessment:
rectal bleed likely due to chronic hemorrhoid, exacerbated by Eliquis
- GI has ok'd resumption of Eliquis
- Hb stable
Paroxysmal A-fib
- continue Amio BID x 2 weeks, then daily x 2 weeks
- continue Toprol XL 50mg BID
- GI has ok'd resumption of Eliquis
- OP cards follow up
Recent AVR/Asc Ao replacement
Mild hyponatremia
- sodium level 133, continue to monitor
Possible subclinical hypothyroidism
- TSH 5.47, free T4 at 1.15
- recommend outpatient thyroid function test eval in 4 weeks
dyslipidemia
Prediabetes (A1c 6.1)
DVT ppx: SCDs
Code: Full
More than 30 minutes spent in discharge including
Final examination of the patient
Summarizing hospital stay
Instructions for continuing care to all relevant caregivers
Preparation of discharge records, prescriptions, and referral forms
Total time spent (in minutes): 42
Anticipated Discharge: Today
Subjective/Interval History
-
Date of Service: June 01, 2024
no new complaints
Objective Data
-
Labs:
Laboratory Results
06/01/24
03:06
WBC 7.5
Hgb 9.5 L
Hct 28.5 L
Plt Count 327
Sodium 133 L
Potassium 4.5
Chloride 103
Carbon Dioxide 25
BUN 17
Creatinine 0.7
Glucose 92
Calcium 8.6
Vital Signs:
Vital Signs
Temp Pulse Resp BP Pulse Ox
98.7 F 64 20 118/69 98
06/01/24 12:17 06/01/24 13:00 06/01/24 12:17 06/01/24 12:20 06/01/24 12:17
I&O
05/31/24 06/01/24 06/02/24
06:59 06:59 06:59
Intake Total 355 / 355 120 / 120
Balance 355 / 355 120 / 120
Physical Exam
-
General: No Apparent Distress
HEENT: Normocephalic and Atraumatic
Respiratory: Negative Wheezes
Cardiac: Regular Rhythm and S1/S2
GI: Soft and Nontender
Neuro: AO x 3
Hematologic / Lymphatic: No Lymphadenopathy
Psych: Calm
Data Reviewed
-
Total Time Spent with Patient (in minutes): 42
Labs: Labs Reviewed by me
--- NOTE | 2024-06-01 15:19 | W.DS.TRANS ---
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
-
Discharge Instructions:
Discharge Diagnosis/Procedures rapid Afib. hemorrhoidal GI bleed
Diet Diabetic, Carb Controlled,Low Sodium,Low
Cholesterol
Activity No strenuous activity
Driving Restrictions Not until seen by your Dr
Bathing Restrictions OK to Shower
Other Services Cardiac Rehab
Specialty Instructions Weigh Daily
Instructions:
Stand-Alone Forms:
Changes to Home Medications: Yes
Discharge Medications:
DC Medications w/original date entered in [facility]
atorvastatin 40 mg tablet 40 mg PO DAILY High Cholesterol 12/07/21
fexofenadine 180 mg tablet 180 mg PO DAILY Allergies 12/07/21
phenylephrine HCl 10 mg tablet (Sudafed PE) 10 mg PO TIDPRN PRN allergies/post nasal drip 12/07/21
valacyclovir 500 mg tablet 500 mg PO DAILY Infection 12/07/21
coenzyme Q10 200 mg capsule (Co Q-10) 200 mg PO DAILY Supplement 03/23/24
nesrcruz-ilg-drjyd acid 0.4 mg-lycopene 300 mcg-lutein 250 mcg tablet (Centrum Silver) 1 tab PO DAILY Supplement 03/23/24
omega 0-hod-kfd-fish oil 1,200 mg (144 mg-216 mg) capsule (Fish Oil) 1 cap PO DAILY Supplement 03/23/24
tamsulosin 0.4 mg capsule 0.4 mg PO DAILY Urinary Issue 03/23/24
Medical Cannibus 1 dose PO PRN PRN anxiety, pain 04/29/24
acetaminophen 325 mg tablet 650 mg (2 x 325 mg) PO Q4HPRN PRN mild pain,headache,temp >101F #0 tabs 05/22/24
ascorbic acid (vitamin C) 500 mg tablet (Vitamin C) 1,000 mg (2 x 500 mg) PO DAILY #30 tabs 05/24/24
ferrous sulfate 325 mg (65 mg iron) tablet (FeroSul) 325 mg PO DAILY #30 tabs 05/24/24
oxycodone 5 mg tablet 5 mg PO Q4HPRN PRN moderate pain #30 tabs 05/24/24
amiodarone 200 mg tablet (Pacerone) 200 mg PO BID #42 tabs 06/01/24
apixaban 5 mg tablet (Eliquis) 5 mg PO BID #60 tabs 06/01/24
metoprolol succinate 50 mg tablet,extended release 24 hr 50 mg PO BID #60 tabs 06/01/24
Home Medication Changes
Amio taper and Toprol doubled
Pending Results: No
Total time spent discharging patient (in min): 42
--- NOTE | 2024-06-01 15:39 | PTCARENOTE ---
D/C instructions given to patient and , both verbalizes understanding. INT D/C'd, telemetry d/C'd, personal belongings packed and sent home with patient. D/C to home via wc accompanied by vol. services.
== END 2024-06-01 16:19 | disposition home or self-care (01) | DRG 309 ==
LOC: IVU 23:35
PROVIDERS: Nurse Practitioner; Physician Assistant; ADMITTING PHYSICIAN Internal Medicine; ATTENDING PHYSICIAN Internal Medicine; CONSULT PHYSICIAN Internal Medicine Cardiovascular Disease; CONSULT PHYSICIAN Internal Medicine Gastroenterology; FAMILY PHYSICIAN Family Medicine
DX: I48.0 Paroxysmal atrial fibrillation (principal); D68.32 Hemorrhagic disorder due to extrinsic circulating anticoagulants; E87.1 Hypo-osmolality and hyponatremia; I10 Essential (primary) hypertension; E78.00 Pure hypercholesterolemia, unspecified; G47.33 Obstructive sleep apnea (adult) (pediatric); I45.10 Unspecified right bundle-branch block; R73.03 Prediabetes; K64.8 Other hemorrhoids; T45.515A Adverse effect of anticoagulants, initial encounter; E03.8 Other specified hypothyroidism; N40.0 Benign prostatic hyperplasia without lower urinary tract symptoms; Z95.2 Presence of prosthetic heart valve; Z87.74 Personal history of (corrected) congenital malformations of heart and circulatory system; Z95.828 Presence of other vascular implants and grafts; Z79.82 Long term (current) use of aspirin; Z79.899 Other long term (current) drug therapy; Z88.0 Allergy status to penicillin; Z88.2 Allergy status to sulfonamides
CPT/HCPCS: 80048; 82607; 82728; 82746; 82962; 83540; 83550; 83735; 84439; 84443; 85027; 93005

== ENCOUNTER → 2024-07-01 12:00 | Outpatient (REF) | payer MEDICARE, SELFPAY | LOC: DHSLP 12:00 | PROVIDERS: ATTENDING PHYSICIAN Physician Assistant; FAMILY PHYSICIAN Family Medicine | DX: G47.33 Obstructive sleep apnea (adult) (pediatric) (principal); R09.02 Hypoxemia | CPT/HCPCS: 95800 ==

== ENCOUNTER 2024-07-01 13:00 | Outpatient (RCR) | payer MEDICARE, SELFPAY | END 2024-07-01 23:59 | disposition home or self-care (01) | LOC: CRHB 13:00 | PROVIDERS: ATTENDING PHYSICIAN Internal Medicine Cardiovascular Disease; FAMILY PHYSICIAN Family Medicine | DX: Z95.2 Presence of prosthetic heart valve (principal) | CPT/HCPCS: G0422; G0423 ==

== ENCOUNTER 2024-07-15 13:29 | Outpatient (RCR) | payer MEDICARE, SELFPAY | END 2024-07-15 23:59 | disposition home or self-care (01) | LOC: CRHB 13:29 | PROVIDERS: ATTENDING PHYSICIAN Internal Medicine Cardiovascular Disease; FAMILY PHYSICIAN Family Medicine | DX: Z95.2 Presence of prosthetic heart valve (principal) | CPT/HCPCS: G0422; G0423 ==

== ENCOUNTER → 2024-07-17 09:52 | Outpatient (REF) | payer MEDICARE, SELFPAY ==
[2024-07-17 11:28] LABS: HDL Cholesterol 43 mg/dl; LDL Cholesterol, Calculated 49 mg/dl; Total Cholesterol 102 mg/dl (50-199); Triglyceride 51 mg/dl (10-149); Very Low Density Lipoprotein 10 mg/dl (0-30)
== END ==
LOC: RCS 09:52
PROVIDERS: ATTENDING PHYSICIAN Nurse Practitioner; FAMILY PHYSICIAN Family Medicine; REFERRING PHYSICIAN Nurse Practitioner Family
DX: I48.0 Paroxysmal atrial fibrillation (principal); Z95.2 Presence of prosthetic heart valve; R93.89 Abnormal findings on diagnostic imaging of other specified body structures; I10 Essential (primary) hypertension
CPT/HCPCS: 36415; 71046; 80061; 93306

== ENCOUNTER 2024-07-17 14:43 | Inpatient (IN) | payer MEDICARE, SELFPAY ==
[2024-07-17] VITALS (8 sets, daily range): BP systolic 102–135; BP diastolic 63–86; BMI 35.8
--- NOTE | 2024-07-17 12:00 | CON.CAR ---
Addendum entered and electronically signed by Thomas Morales MD 07/17/24 14:16:
I saw and examined the patient.
The LAB ASSOCIATE's note was reviewed and I agree with the note.
Comment: 68-year-old male (known to Dr. Avila, his primary sand molder) with dyslipidemia, prediabetes, RBBB, bicuspid AV with severe , and aortic root dilatation who is now s/p bio AVR #25 Inspiris RESILIA and ascending aortic replacement with
a 30 mm Hemashield graft with Dr. Meraz, 05/18/24, and paroxysmal atrial fibrillation (amiodarone and apixaban now discontinued) who had outpatient follow-up with cardiology. He was found to have a large pericardial effusion. Discussed with
interventional cardiology will heparin gtt through and plan for pericardiocentesis on Saturday.
- NPO after midnight on SaturdayJul 19, with heparin gtt to stop then as well.
- cont Cardiac meds
Original Note:
Consultation
Consultation Request
Date/Time Consultation Requested: 07/17/2024 1200
Date/Time Consultation Performed: 07/17/2024 1200
Requesting Provider: Dr. Childress
Performing Provider: JENSEN Machuca for Dr. Morales
Reason for Consultation: Pericardial effusion
Medical History
-
Chief Complaint: Recurrent atrial fibrillation
History of Present Illness:
Mr. Giraldo is a 68-year-old male (known to Dr. Avila, his primary sand molder) with dyslipidemia, prediabetes, RBBB, bicuspid AV with severe , and aortic root dilatation who is now s/p bio AVR #25 Inspiris RESILIA and ascending aortic
replacement with a 30 mm Hemashield graft with Dr. Meraz, 05/18/24, and paroxysmal atrial fibrillation (amiodarone and apixaban now discontinued) who had outpatient follow-up with cardiology. He endorsed low to normal blood pressures. These
persisted despite decreasing metoprolol. He endorsed associated lightheadedness. He was referred for an echocardiogram. He called the on-call sand molder this past weekend and thought he was going in and out of atrial fibrillation. His apixaban
was resumed. He also resumed amiodarone. His echocardiogram demonstrated a large pericardial effusion. We recommended he present to the emergency department for treatment and full evaluation.
Past Medical History
Past Medical History: Arrhythmias (Paroxysmal atrial fibrillation), Cancer (Testicular), Hypercholesterolemia, NIDDM (Prediabetes), Valvular Disease (Severe aortic stenosis s/p bio AVR and 30 mm Hemashield graft [05/18/2024]) and Other (RBBB, ROBERT on
CPAP)
Past Surgical History: Cardiac (Severe aortic stenosis s/p bio AVR and 30 mm Hemashield graft [05/18/2024]) and Urological
Social History
Tobacco: Non-Smoker
Alcohol: None
Drug: None
Living: With Family
Family History
Family History: Reviewed & Not Pertinent
Allergies / Home Medications
Allergy/AdvReac Type Severity Reaction Status Date / Time
azithromycin Allergy Nausea Verified 05/22/24 22:38
erythromycin base Allergy Nausea Verified 05/22/24 22:38
Penicillins Allergy Rash Verified 04/29/24 12:14
Sulfa (Sulfonamide Allergy Rash Verified 04/29/24 12:14
Antibiotics)
�Medication �Instructions �Recorded �Confirmed �Type
atorvastatin 40 mg tablet 40 mg PO DAILY High Cholesterol 12/07/21 05/30/24 History
fexofenadine 180 mg tablet 180 mg PO DAILY Allergies 12/07/21 05/30/24 History
phenylephrine HCl 10 mg tablet 10 mg PO TIDPRN PRN allergies/post 12/07/21 05/30/24 History
(Sudafed PE) nasal drip
valacyclovir 500 mg tablet 500 mg PO DAILY Infection 12/07/21 05/30/24 History
coenzyme Q10 200 mg capsule (Co 200 mg PO DAILY Supplement 03/23/24 05/30/24 History
Q-10)
kpgnneoz-ole-izqwh acid 0.4 1 tab PO DAILY Supplement 03/23/24 05/30/24 History
mg-lycopene 300 mcg-lutein 250 mcg
tablet (Centrum Silver)
omega 3-rfn-iza-fish oil 1,200 mg 1 cap PO DAILY Supplement 03/23/24 05/30/24 History
(144 mg-216 mg) capsule (Fish Oil)
tamsulosin 0.4 mg capsule 0.4 mg PO DAILY Urinary Issue 03/23/24 05/30/24 History
Medical Cannibus 1 dose PO PRN PRN anxiety, pain 04/29/24 05/30/24 History
acetaminophen 325 mg tablet 650 mg (2 x 325 mg) PO Q4HPRN PRN 05/22/24 05/30/24 Rx
mild pain,headache,temp >101F #0
tabs
ascorbic acid (vitamin C) 500 mg 1,000 mg (2 x 500 mg) PO DAILY #30 05/24/24 05/30/24 Rx
tablet (Vitamin C) tabs
ferrous sulfate 325 mg (65 mg 325 mg PO DAILY #30 tabs 05/24/24 05/30/24 Rx
iron) tablet (FeroSul)
oxycodone 5 mg tablet 5 mg PO Q4HPRN PRN moderate pain 05/24/24 05/30/24 Rx
#30 tabs
amiodarone 200 mg tablet (Pacerone) 200 mg PO BID #42 tabs 06/01/24 05/30/24 Rx
apixaban 5 mg tablet (Eliquis) 5 mg PO BID #60 tabs 06/01/24 Rx
metoprolol succinate 50 mg 50 mg PO BID #60 tabs 06/01/24 Rx
tablet,extended release 24 hr
Review of Systems
-
History Source: Patient
All other systems: Negative unless noted
Constitutional: Fatigue
EENT: No Symptoms
Respiratory: No Symptoms
Cardiac: Palpitations
Abdomen/GI: No Symptoms
: No Symptoms
Musculoskeletal: No Symptoms
Skin: No Symptoms
Neurological: Other (lightheaded)
Endocrine: No Symptoms
Hematologic/Lymphatic: No Symptoms
Physical Exam
Physical Exam
General: Well Developed, Well Nourished, No Apparent Distress and Comfortable
HEENT: Normocephalic, Anicteric and Moist Mucous Membranes
Respiratory: Clear and Non Labored Respirations
Cardiac: S1/S2 and Regular Rhythm
Breast: Deferred by me
GI: Soft, Non Tender, Non Distended and Normal Bowel Sounds
Rectal: Deferred by Provider
Genito-urinary: No Costovertebral Tender
Musculoskeletal: No Clubbing and No Edema
Skin: Warm and Dry
Neuro: AO x 3
Hematologic/Lymphatic: No Lymphadenopathy
Psych: Calm
Impression / Plan
-
Pericardial effusion, large
-He had mild hypotension with associated lightheadedness in the outpatient setting prompting echocardiogram
-Pericardiocentesis today
Severe bicuspid aortic stenosis s/p #25 Inspiris Resilia SAVR and #30 Hemashield [place] graft by Dr. Meraz 05/18/2024
-Stable on echocardiogram
Paroxysmal atrial fibrillation
-Stable in sinus rhythm on amiodarone and metoprolol
-Oral Anticoagulation: Eliquis (last dose 8am), now on hold
-[id number]: score 1 (age 65-74)
RBBB, chronic
Dyslipidemia, LDL 49, continue atorvastatin
Prediabetes
[2024-07-17 12:41] LABS: % Basophils 1.1 % (0-2); % Eosinophils 5.8 % (0-6); % Immature Granulocytes 0.2 % (0-0.5); % Lymphocytes 18.5 % (20.5-51.1); % Monocytes 6.5 % (1.7-9.3); % Neutrophils 67.9 % (42.2-75.2); Absolute Basophils 0.1 10^3/uL (0-0.2); Absolute Eosinophils 0.3 10^3/uL (0-0.7); Absolute Monocytes 0.4 10^3/uL (0.1-0.6); Absolute Neutrophils 3.8 10^3/uL (1.4-6.5); Hematocrit 31.7 % (39.0-52.0); Hemoglobin 10.5 g/dL (13.0-18.0); Mean Corp Hgb Conc. 33.1 g/dL (33.0-37.0); Mean Corpuscular Hgb 28.6 pg (27.0-31.0); Mean Corpuscular Volume 86.4 fL (80.0-94.0); Nucleated Red Blood Cells % 0 % (-); Platelet Count 241 10^3/uL (130-400); Red Blood Cell Count 3.67 10^6/uL (4.70-6.10); Red Cell Dist. Width 13.5 % (11.5-14.5); White Blood Cell Count 5.6 10^3/uL (4.8-10.8)
--- NOTE | 2024-07-17 12:51 | ED.GENMED ---
History of Present Illness
General
Chief Complaint: Chest Pain
Source: patient
Exam Limitations: none
Time Seen by Provider: 07/17/24 12:13
History of Present Illness
History of Present Illness:
68-year-old male. Presents with a positive echocardiogram showing pericardial effusion. Has had some increased shortness of breath with exertion some lightheadedness some episodes of hypotension. Initially felt related to his amiodarone and
beta-santos. However follow-up echo showed difficult effusion. Sent for admission and pericardiocentesis. Patient did take his Eliquis this morning.
Past History
Past History
ED Past Medical History: Arrthythmia, Hypercholesterolemia, Other (Valvular heart disease) and Other (Aortic replacement)
ED Past Surgical History: Cardiac (Valvular/ascending aortic replacement)
Social History
Tobacco: Non-smoker
Personal:
Living: with family
Review of Systems
Review of Systems
All Other Systems: Not applicable
Constitutional: Denies fever or chills
Cardiac: Denies chest pain
Phy Exam
Physical Exam
Physical Exam:
GENERAL: Alert and oriented in no apparent distress
EYE: Orbits normal.
NECK: Supple, no significant adenopathy.
ENT: Pharynx without erythema
CARDIAC: Regular rate and rhythm. Well-healing sternotomy scar
LUNGS: Clear breath sounds,normal
ABDOMEN: Soft, without focal tenderness or distention
NEUROLOGICAL: Alert and oriented , grossly non-focal
SKIN: Warm and dry, no rash or lesion, no discoloration, skin intact.
MUSCULOSKELETAL: No edema,no deformity.Good color
PSYCH: Normal and appropriate interaction.
Scores
Heart Score for Chest Pain Patients
STEMI patient?: Not applicable
Course
Orders/Labs/Results
Orders:
Orders
07/17/24 12:02
Electrocardiogram (*1) Urgent
Reason for Study: Chest Pain
EKG- Treatment ONCE
07/17/24 12:14
Cardiac Monitoring- Treatment ONCE
IV Insert/Care/Rem.- Treatment PRN
07/17/24 12:34
Basic Metabolic Panel Urgent
Complete Blood Count/With Diff Urgent
PTT Urgent
Prothrombin Time Urgent
Abnormal Lab Results
07/17/24
12:34
RBC 3.67 L 10^6/uL
(4.70-6.10)
Hgb 10.5 L g/dL
(13.0-18.0)
Hct 31.7 L %
(39.0-52.0)
Absolute Lymphs (auto) 1.0 L 10^3/uL
(1.2-3.4)
Lymphocytes % 18.5 L %
(20.5-51.1)
PT 17.7 H Sec
(11.4-14.6)
APTT 37.9 H Sec
(23.4-35.0)
Glucose 128 H mg/dl
(70-99)
07/17/24 12:34
07/17/24 12:34
Vital Signs
Initial and Last Documented VS:
Initial Vital Signs
Temp Pulse Resp BP Pulse Ox
97.5 F 78 18 102/81 99
07/17/24 11:56 07/17/24 11:56 07/17/24 11:56 07/17/24 11:56 07/17/24 11:56
Last Documented Vital Signs
Temp Pulse Resp BP Pulse Ox
97.5 F 77 14 120/63 98
07/17/24 11:56 07/17/24 13:15 07/17/24 13:15 07/17/24 13:00 07/17/24 13:15
MDM/Problems Addressed
Differential Diagnosis Includes:
Admission for symptomatic pericardial effusion. Hospitalist aware. Cardiology and invasive cardiology also aware
*Critical Care Note
Total Time (30-74mins, 75-104mins- exclusive of procedures): Not Applicable
Data Reviewed
Review of Other/Old Records Reveals: Labs, Records, Radiology Studies, Operative Reports and Discharge Summary
ED Attending Note
-
Portions of this chart may have been created with voice recognition software.� Occasional wrong word or��sound alike� substitutions may have occurred due to the inherent limitations of voice recognition software.
Discharge Plan
Departure
Patient Disposition: Admit
Date of Disposition: 07/17/24
Time of Disposition: 12:53
Presentation/result/management discussed w/ accepting MD/DO: Cardiology/invasive cardi
Discharge Problem:
Symptomatic pericardial effusion, Recent aortic valve replacement, Recent ascending aorta repair
Prescriptions:
No Action
fexofenadine 180 MG tablet
180 mg PO DAILY
phenylephrine HCl [Sudafed PE] 10 MG tablet
10 mg PO TIDPRN PRN (Reason: allergies/post nasal drip)
atorvastatin 40 MG tablet
40 mg PO DAILY
valacyclovir 500 MG tablet
500 mg PO DAILY
tamsulosin 0.4 mg Capsule
0.4 mg PO DAILY
Centrum Silver 0.4 mg-300 mcg- 250 mcg Tablet
1 tab PO DAILY
coenzyme Q10 [Co Q-10] 200 mg Capsule
200 mg PO DAILY
omega 6-zcm-yzp-fish oil [Fish Oil] 1,200 (144-216) mg Capsule
1 cap PO DAILY
Medical Cannibus
1 dose PO PRN PRN (Reason: anxiety, pain)
acetaminophen 325 mg Tablet
650 mg PO Q4HPRN PRN (Reason: mild pain,headache,temp >101F ) Qty: 0 0RF
ferrous sulfate [FeroSul] 325 mg (65 mg iron) Tablet
325 mg PO DAILY Qty: 30 0RF
ascorbic acid (vitamin C) [Vitamin C] 500 mg Tablet
1,000 mg PO DAILY Qty: 30 0RF
oxycodone 5 mg Tablet
5 mg PO Q4HPRN PRN (Reason: moderate pain) Qty: 30 0RF
Eliquis 5 mg Tablet
5 mg PO BID Qty: 60 0RF
metoprolol succinate 50 mg Tablet Extended Release 24 Hr
50 mg PO BID Qty: 60 0RF
amiodarone [Pacerone] 200 mg Tablet
200 mg PO BID Qty: 42 0RF
Rx Instructions:
take 200mg BID x 2 weeks, then 200mg daily x 2 weeks to finish
Interventions
Interventions:
*Risk Screen - Suicide Last Done: 07/17/24 11:56
*General Assessment Last Done: 07/17/24 11:56
*Neglect/Abuse Screening Last Done: 07/17/24 11:56
*ED COVID-19 Vaccine History Last Done: 07/17/24 12:08
ED- Cardiac Assessment Last Done: 07/17/24 12:40
Discharge Date and Time
Print Language: MALAGASY
[2024-07-17 12:59] LABS: INR 1.48; PT 17.7 Sec (11.4-14.6)
[2024-07-17 13:00] LABS: APTT 37.9 Sec (23.4-35.0)
[2024-07-17 13:04] LABS: Blood Urea Nitrogen 13 mg/dl (9-20); Calcium 9.1 mg/dl (8.4-10.2); Carbon Dioxide 27 mmol/L (22-30); Chloride 102 mmol/L (98-107); Glucose 128 mg/dl (70-99); Potassium 4.2 mmol/L (3.5-5.1); Sodium 136 mmol/L (135-145); eGFR > 60.00
[2024-07-17 14:51] LABS: Iron 68 ug/dl (49-181)
[2024-07-17 15:00] LABS: Percent Saturation 22 % (20-50); Total Iron Binding Capacity 309 ug/dl (261-462)
--- NOTE | 2024-07-17 15:32 | HPS.HSE ---
Addendum entered and electronically signed by Rebecca Walden MD 07/17/24 16:07:
68-year-old male with Abnormal Echo
CVS: S1-S2 normal
Chest: CTA B/L
Abdomen: Soft, NT / Bowel sounds present
Extremities: No edema, normal pulses
SHIPPER AND RECEIVING: Non focal exam
Echo 07/17/2024-normal LV size EF 60 to 65%. Normal RV size and function. Arctic valve replacement, large pericardial effusion without hemodynamic compromise. Ascending aorta not well-visualized. IVC dilated.
EKG reviewed by me sinus rhythm, right bundle branch block
# Large pericardial effusion Without hemodynamic compromise per ECHO
Likely postoperative reasons, other causes need to be ruled out also
Check pericardial fluid for Gram stain/culture and cytology
For pericardiocentesis Saturday after Eliquis wash out.
Hold Eliquis, Heparin gtt per cards
Cardiology following
# Paroxysmal atrial fibrillation
Hold Eliquis
Metoprolol and Amiodarone to be continued
# Potential ROBERT- pt mentioned he was receiving work up for ROBERT. Nocturnal pulse ox
# Anemia -Check Iron studies
# Recent aortic valve replacement and aortic root replacement
# Dyslipidemia-continue atorvastatin
# Prediabetes
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
# History of ocular migraine
# Diverticulosis
# H/O Genital Herpes- Continue Valacyclovir
# DVT prophylaxis-Eliquis
# Full code
D/W Family at bed side
D/W Cardiology
Time over 75 min
Original Note:
Family Physician
-
Family Physician: Kobe Meyer
Chief Complaint
-
Abnormal Echo results, chest tighness
History of Present Illness
Sathya is a 68-year-old male who presented to the ED after abnormal follow-up echocardiogram revealing pericardial effusion. On 05/18 patient went for AVR and ascending aortic replacement. 1 week later he developed atrial fibrillation and was
hospitalized. They put him on Eliquis, amiodarone and metoprolol. Upon returning home patient stated he just did not feel like himself and was experiencing some shortness of breath with exertion. July 06, the patient had a follow-up with his
cartridge assembler. Because he had not had another episode of atrial fibrillation, his blood pressure was low and he was not feeling good, the cartridge assembler decided to stop amiodarone and Eliquis and put him on baby aspirin and 12.5 metoprolol daily. The
patient continued to feel 'not like himself' with SOB on exertion. Patient stated that just walking from his garden to his house on a slight incline became difficult for him whereas before surgery he was fine. This past Saturday, did patient had an
episode of atrial fibrillation so he called his cartridge assembler. They change his medication to metoprolol 12.5 twice daily and added amiodarone and Eliquis back on. Yesterday and today he felt a lot better. Today he went to see his call her
cartridge assembler for repeat ultrasound, chest x-ray and labs. Ultrasound revealed a large pericardial effusion without hemodynamic compromise and was sent to the ED. Patient endorses a small amount of chest tightness and shortness of breath with
exertion but no chest pain, pain radiating to the arms, heart palpitations, nausea, vomiting, dizziness. Upon admission to the ED he did have an episode of hypotension with blood pressure 102/81, but otherwise has been hemodynamically stable.
Medical History
Past Medical History
Past Medical History: Reports Other (Hyperlipidemia, PAF, genital herpes, germ cell tumor (left testicular resection in 2008), bicuspid valve, aortic root dilation)
Past Surgical History: Reports Other (AVR, ascending aortic root replacement, right hip replacement 2017, left knee arthroscopic procedure, left testicular removal, thumb tendon reattachment 1983)
Social History
Tobacco: Non-smoker
Alcohol: Occasional (1-2x/month)
Drug: Former User (Marijuana in high school, no IV drug use)
Personal:
Living: With Family
Employment: Retired
Family History
Family History: Other (Dad-SC, diabetes, respiratory failure. Mom-thyroid issue. Brother-thyroid issue)
Allergies / Home Medications
Allergies reflects when Allergies were last updated in [facility].
Home Medications with original date entered in [facility]
Allergy/Medication List:
Allergies
Allergy/AdvReac Type Severity Reaction Status Date / Time
azithromycin Allergy Nausea Verified 05/22/24 22:38
erythromycin base Allergy Nausea Verified 05/22/24 22:38
Penicillins Allergy Rash Verified 04/29/24 12:14
Sulfa (Sulfonamide Allergy Rash Verified 04/29/24 12:14
Antibiotics)
Home Medications
atorvastatin 40 mg tablet 40 mg PO HS High Cholesterol 12/07/21
fexofenadine 180 mg tablet 180 mg PO DAILY Allergies 12/07/21
phenylephrine HCl 10 mg tablet (Sudafed PE) 10 mg PO BID 12/07/21
valacyclovir 500 mg tablet 500 mg PO DAILY Infection 12/07/21
coenzyme Q10 200 mg capsule (Co Q-10) 200 mg PO HS Supplement 03/23/24
dzbwekvr-bec-svvyo acid 0.4 mg-lycopene 300 mcg-lutein 250 mcg tablet (Centrum Silver) 1 tab PO DAILY Supplement 03/23/24
omega 5-qey-bul-fish oil 1,200 mg (144 mg-216 mg) capsule (Fish Oil) 1 cap PO DAILY Supplement 03/23/24
tamsulosin 0.4 mg capsule 0.4 mg PO HS Urinary Issue 03/23/24
acetaminophen 325 mg tablet 650 mg (2 x 325 mg) PO Q4HPRN PRN mild pain,headache,temp >101F #0 tabs 05/22/24
ascorbic acid (vitamin C) 500 mg tablet (Vitamin C) 1,000 mg (2 x 500 mg) PO DAILY #30 tabs 05/24/24
ferrous sulfate 325 mg (65 mg iron) tablet (FeroSul) 325 mg PO DAILY #30 tabs 05/24/24
apixaban 5 mg tablet (Eliquis) 5 mg PO BID #60 tabs 07/01/24
amiodarone 200 mg tablet (Pacerone) 200 mg PO HS 07/17/24
metoprolol succinate 25 mg tablet,extended release 24 hr 12.5 mg PO BID 07/17/24
Review of Systems
-
History Source: Patient
A 12 point ROS was completed and negative except as noted: Yes
EENT: Reports No Symptoms
Respiratory: Reports No Symptoms
Cardiac: Reports Other (Mild chest tightness, but no pain); Denies Chest Pain or Palpitations
Abdomen/GI: Reports No Symptoms
: Reports No Symptoms
Musculoskeletal: Reports No Symptoms
Neurological: Reports No Symptoms
Psych: Reports No Symptoms and Calm
Physical Exam
Vital Signs
Vital Signs
Temp Pulse Resp BP Pulse Ox
97.5 F 67 16 125/81 96
07/17/24 11:56 07/17/24 15:15 07/17/24 15:15 07/17/24 15:00 07/17/24 15:15
Physical Exam
General: Well Developed, No Apparent Distress, Comfortable and Conversant
Respiratory: Clear
Cardiac: S1/S2, Regular Rhythm and JVD (Mild JVD elevation)
GI: Soft, Non Tender and Non Distended
Musculoskeletal: No Edema
Skin: Warm and Dry
Neuro: AO x 3
Psych: Calm
Laboratory Results
-
07/17/24 12:34
Laboratory Results
PT 17.7 Sec (11.4-14.6) H 07/17/24 12:34
INR 1.48 07/17/24 12:34
APTT 37.9 Sec (23.4-35.0) H 07/17/24 12:34
Impression/Plan
-
IMPRESSION:
Comfortable 68-year-old male with pericardial effusion s/p AVR and ascending aorta replacement in May.
PLAN:
# Pericardial effusion
-Outpatient echocardiogram follow-up 07/17/2024 revealed large pericardial effusion without evidence of hemodynamic compromise
-Likely secondary to prior AVR and ascending aortic replacement surgery in May. Cardiology agrees.
-Admit to IVU
-Start heparin drip
� Pericardiocentesis planned for Saturday once Eliquis is out of system
-Hemodynamically stable
-Cardiology following
-N.p.o. and stop heparin gtt after midnight on Saturday, July 19 per cards
-Patient underwent surgery for hx of bicuspid AV with severe and aortic root dilation
# Paroxysmal atrial fibrillation
� Stable on amiodarone and metoprolol. Continue
-Hold Eliquis. Start heparin and continue over weekend before pericardiocentesis
#Potential ROBERT- pt mentioned he was receiving work up for ROBERT. Consider nocturnal pulse ox with report
#Hyperlipidemia � Continue atorvastatin
# Genital herpes�continue valacyclovir
# Seasonal allergies�continue home allergy medications as needed
[2024-07-17 16:03] LABS: Vitamin B12 806 pg/ml (239-931)
--- NOTE | 2024-07-17 16:16 | CM ---
Reviewed chart. Met with and Mrs. Giraldo to review discharge plans. He states prior to admission he resides with his spouse in a one story home with four steps to enter. He states prior to admission he was independent with ambulation and
adls. He states he does not have any DME in the home. He states he has a prescription plan and uses [facility]. Medical work-up in progress. The discharge plan is to return home with his spouse when medically stable.
[2024-07-17] MEDS: HEPARIN 25000 UNITS/250 ML IV (16:21)
[2024-07-17 16:49] LABS: Glucose - Point of Care 139 mg/dl (70-99)
[2024-07-17 17:00] LABS: Ferritin 48.8 ng/ml (17.9-464.0)
[2024-07-17] MEDS: TOPROL XL 12.5 MG PO (20:12)
[2024-07-17 21:34] LABS: Glucose - Point of Care 108 mg/dl (70-99)
[2024-07-17] MEDS: TYLENOL 650 MG PO (22:29)
[2024-07-17] MEDS: FLOMAX 0.4 MG PO (22:29)
[2024-07-17] MEDS: LIPITOR 40 MG PO (22:29)
[2024-07-17] MEDS: PACERONE 200 MG PO (22:29)
--- NOTE | 2024-07-17 22:50 | PTCARENOTE ---
Received patient at change of shift. Awake and oriented. Sitting in chair. BP 131/79, SR 60s-70s, oxygen 100% on room air. Heparin drip running at 1000 units/hr in right AC. Denies chest discomfort. Discussed ongoing care plan with patient. Patient
agreed to call with any discomfort. Call velasquez within reach.
[2024-07-17 22:52] LABS: APTT 37.8 Sec (23.4-35.0)
[2024-07-18 05:22] VITALS: BP 143/88
[2024-07-18 05:48] LABS: Hematocrit 32.6 % (39.0-52.0); Hemoglobin 11.2 g/dL (13.0-18.0); Mean Corp Hgb Conc. 34.4 g/dL (33.0-37.0); Mean Corpuscular Hgb 29.5 pg (27.0-31.0); Mean Corpuscular Volume 85.8 fL (80.0-94.0); Mean Platelet Volume 8.7 fL (7.4-10.4); Platelet Count 245 10^3/uL (130-400); Red Cell Dist. Width 13.4 % (11.5-14.5); White Blood Cell Count 5.7 10^3/uL (4.8-10.8)
[2024-07-18 06:01] LABS: APTT 44.5 Sec (23.4-35.0)
[2024-07-18 06:13] LABS: ALT (SGPT) 35 U/L (0-50); AST (SGOT) 29 U/L (17-59); Albumin 3.8 g/dl (3.5-5.0); Alkaline Phosphatase 136 U/L (38-126); Blood Urea Nitrogen 14 mg/dl (9-20); Calcium 9.2 mg/dl (8.4-10.2); Carbon Dioxide 26 mmol/L (22-30); Chloride 105 mmol/L (98-107); Estimated Creatinine Clearance > 125 ml/min; Glucose 92 mg/dl (70-99); Potassium 4.4 mmol/L (3.5-5.1); Sodium 138 mmol/L (135-145); Total Bilirubin 0.5 mg/dl (0.2-1.3); Total Protein 6.6 g/dl (6.3-8.2); eGFR > 60.00
[2024-07-18 07:45] LABS: Glucose - Point of Care 158 mg/dl (70-99)
[2024-07-18 07:47] VITALS: BP 109/75
[2024-07-18] MEDS: CLARITIN 10 MG PO (07:47)
[2024-07-18] MEDS: TOPROL XL 12.5 MG PO ×2 (07:47→19:49)
[2024-07-18] MEDS: VALTREX 500 MG PO (07:48)
[2024-07-18 09:15] LABS: Glycohemoglobin (HgbA1c) 5.6 % (4.0-5.6)
--- NOTE | 2024-07-18 09:43 | W.PN.CD ---
Today's Communication / Plan
-
cont heparin gtt
Impression / Plan
-
Pericardial effusion, large
-He had mild hypotension with associated lightheadedness in the outpatient setting prompting echocardiogram
-Pericardiocentesis Saturday, NPO after midnight Jul 19 heparin gtt stop Jul 19 at midnight
Severe bicuspid aortic stenosis s/p #25 Inspiris Resilia SAVR and #30 Hemashield [place] graft by Dr. Meraz 05/18/2024
-Stable on echocardiogram
Paroxysmal atrial fibrillation
-Stable in sinus rhythm on amiodarone and metoprolol
-Oral Anticoagulation: Eliquis (last dose 8am), now on hold
-[id number]: score 1 (age 65-74)
RBBB, chronic
Dyslipidemia, LDL 49, continue atorvastatin
Prediabetes
Physical Exam
Vital Signs/Labs
Vital Signs
Temp Pulse Resp BP Pulse Ox
97.7 F 69 16 143/88 95
07/18/24 08:08 07/18/24 05:30 07/18/24 08:08 07/18/24 05:22 07/18/24 08:08
07/17/24 07/18/24 07/19/24
06:59 06:59 06:59
Actual Weight 263 lb 10.766 oz
07/18/24 05:29
07/18/24 05:29
PT 17.7 Sec (11.4-14.6) H 07/17/24 12:34
INR 1.48 07/17/24 12:34
APTT 44.5 Sec (23.4-35.0) H 07/18/24 05:29
Physical Exam
Constitutional: No acute distress
EENT: Anicteric
Cardiovascular: Rhythm & rate is regular and Pedal edema is absent
Respiratory: Respiratory effort normal and Lungs clear to auscul.
GI: Soft
Neuro/Psych: AO x 3
Data Reviewed
-
Date of Service: July 18, 2024
EKG: Tracing Personally Visualized and interpreted (sr)
Echo: Report Reviewed by me
Labs: Labs Reviewed by me
--- NOTE | 2024-07-18 11:00 | W.PN.HOSP.TC ---
Today's Communication/Plan
-
Continue heparin drip
Pericardiocentesis
Assessment / Plan
Assessment / Plan
68-year-old male with Abnormal Echo
Denies any chest pain or shortness of breath
CVS: S1-S2 normal
Chest: CTA B/L
Abdomen: Soft, NT / Bowel sounds present
Extremities: Trace edema, normal pulses
JUKE BOX MECHANIC: Non focal exam
Echo 07/17/2024-normal LV size EF 60 to 65%. Normal RV size and function. Arctic valve replacement, large pericardial effusion without hemodynamic compromise. Ascending aorta not well-visualized. IVC dilated.
EKG reviewed by me sinus rhythm, right bundle branch block
# Large pericardial effusion Without hemodynamic compromise per ECHO
Likely postoperative reasons, other causes need to be ruled out also
Check pericardial fluid for Gram stain/culture and cytology
For pericardiocentesis Saturday after Eliquis wash out.
Hold Eliquis, Heparin gtt per cards
Cardiology following
# Paroxysmal atrial fibrillation
Hold Eliquis
Metoprolol and Amiodarone to be continued
# Potential ROBERT- pt mentioned he was receiving work up for ROBERT. Nocturnal pulse ox
# Anemia -Check Iron studies
# Recent aortic valve replacement and aortic root replacement
# Dyslipidemia-continue atorvastatin
# Prediabetes
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
# History of ocular migraine
# Diverticulosis
# H/O Genital Herpes- Continue Valacyclovir
# DVT prophylaxis-Eliquis
# Full code
Add Tubigrip
Part of this note was created using voice recognition system. Occasional wrong word or��sound alike� substitutions may have inadvertently occurred due to the inherent limitations of voice recognition software. If noted kindly bring it to my
attention for correction.
Anticipated Discharge: > 48 hours
Subjective/Interval History
-
Date of Service: July 18, 2024
Objective Data
-
Labs:
Laboratory Results
07/18/24 07/18/24
05:29 12:20
WBC 5.7
Hgb 11.2 L
Hct 32.6 L
Plt Count 245
APTT 44.5 H Pending
Sodium 138
Potassium 4.4
Chloride 105
Carbon Dioxide 26
BUN 14
Creatinine 0.7
Glucose 92
Calcium 9.2
Total Bilirubin 0.5
AST 29
ALT 35
Alkaline Phosphatase 136 H
Vital Signs:
Vital Signs
Temp Pulse Resp BP Pulse Ox
97.7 F 69 16 143/88 95
07/18/24 08:08 07/18/24 05:30 07/18/24 08:08 07/18/24 05:22 07/18/24 08:08
I&O
07/17/24 07/18/24 07/19/24
06:59 06:59 06:59
Intake Total 240 / 240
Balance 240 / 240
[2024-07-18 11:47] VITALS: BP 122/79
[2024-07-18 11:56] LABS: Glucose - Point of Care 106 mg/dl (70-99)
[2024-07-18] MEDS: HEPARIN 25000 UNITS/250 ML IV (13:07)
[2024-07-18 13:27] LABS: APTT 41.6 Sec (23.4-35.0)
--- NOTE | 2024-07-18 15:23 | PTCARENOTE ---
Pt ambulating in [place] with , no c/o chest pain or SOB, jay well. Tubigrips stockings-knee high -on.
[2024-07-18 16:01] VITALS: BP 100/68
[2024-07-18 17:25] LABS: Glucose - Point of Care 93 mg/dl (70-99)
[2024-07-18 19:48] VITALS: BP 120/80
--- NOTE | 2024-07-18 19:50 | PTCARENOTE ---
Received pt at handoff. AOX3. Tele- SR. Heparin gtt infusing at 1600 units/hr. Assessment completed as documented. Pt has no c/o at this time. Ambulatory in hallways w/ steady gait. Currently OOB in chair; call ron w/in reach.
[2024-07-18 20:32] LABS: APTT 62.1 Sec (23.4-35.0)
[2024-07-18 21:26] LABS: Glucose - Point of Care 129 mg/dl (70-99)
[2024-07-18 22:27] VITALS: BP 116/77
[2024-07-18] MEDS: LIPITOR 40 MG PO (22:29)
[2024-07-18] MEDS: TYLENOL 650 MG PO (22:29)
[2024-07-18] MEDS: FLOMAX 0.4 MG PO (22:29)
[2024-07-18] MEDS: PACERONE 200 MG PO (22:29)
[2024-07-19] VITALS (7 sets, daily range): BP systolic 99–121; BP diastolic 59–84
[2024-07-19] MEDS: HEPARIN 25000 UNITS/250 ML IV ×2 (03:14→17:37)
[2024-07-19 03:37] LABS: Hematocrit 32.6 % (39.0-52.0); Hemoglobin 11.1 g/dL (13.0-18.0); Mean Corpuscular Hgb 28.9 pg (27.0-31.0); Mean Corpuscular Volume 84.9 fL (80.0-94.0); Mean Platelet Volume 8.4 fL (7.4-10.4); Platelet Count 242 10^3/uL (130-400); Red Blood Cell Count 3.84 10^6/uL (4.70-6.10); Red Cell Dist. Width 13.5 % (11.5-14.5); White Blood Cell Count 6.6 10^3/uL (4.8-10.8)
[2024-07-19 03:49] LABS: APTT 98.7 Sec (23.4-35.0)
[2024-07-19 07:30] LABS: Glucose - Point of Care 106 mg/dl (70-99)
[2024-07-19] MEDS: TOPROL XL 12.5 MG PO ×2 (08:11→19:46)
[2024-07-19] MEDS: VALTREX 500 MG PO (08:11)
[2024-07-19] MEDS: CLARITIN 10 MG PO (08:11)
[2024-07-19 09:54] LABS: APTT 67.5 Sec (23.4-35.0)
--- NOTE | 2024-07-19 10:52 | W.PN.CD ---
Today's Communication / Plan
-
NPO after midnight for pericardiocentesis
Impression / Plan
-
Pericardial effusion, large
-He had mild hypotension with associated lightheadedness in the outpatient setting prompting echocardiogram
-Pericardiocentesis Saturday, NPO after midnight Jul 19 heparin gtt stop Jul 19 at midnight
Severe bicuspid aortic stenosis s/p #25 Inspiris Resilia SAVR and #[address] Hemashield [place] graft [address] Dr. Meraz 05/18/2024
-Stable on echocardiogram
Paroxysmal atrial fibrillation
-Stable in sinus rhythm on amiodarone and metoprolol
-Oral Anticoagulation: Eliquis (last dose 8am), now on hold
-[id number]: score 1 (age 65-74)
RBBB, chronic
Dyslipidemia, LDL 49, continue atorvastatin
Prediabetes
Subjective: feels well no new symptoms
Physical Exam
Vital Signs/Labs
Vital Signs
Temp Pulse Resp BP Pulse Ox
98.4 F 84 20 101/59 95
07/19/24 07:26 07/19/24 03:15 07/19/24 07:26 07/19/24 03:10 07/19/24 07:26
07/18/24 07/19/24 07/20/24
06:59 06:59 06:59
Actual Weight 263 lb 10.766 oz
07/19/24 03:19
07/18/24 05:29
PT 17.7 Sec (11.4-14.6) H 07/17/24 12:34
INR 1.48 07/17/24 12:34
APTT 67.5 Sec (23.4-35.0) H 07/19/24 09:31
Physical Exam
Constitutional: No acute distress
EENT: Anicteric
Cardiovascular: Rhythm & rate is regular and Pedal edema is absent
Respiratory: Respiratory effort normal and Lungs clear to auscul.
GI: Soft
Neuro/Psych: AO x 3
Data Reviewed
-
Date of Service: July 19, 2024
EKG: Tracing Personally Visualized and interpreted (sr)
Echo: Report Reviewed by me
Labs: Labs Reviewed by me
--- NOTE | 2024-07-19 10:54 | W.PN.HOSP.TC ---
Today's Communication/Plan
-
Pericardiocentesis Saturday
Assessment / Plan
Assessment / Plan
68-year-old male with Abnormal Echo
Denies any chest pain or shortness of breath
CVS: S1-S2 normal, sm at aa
Chest: CTA B/L
Abdomen: Soft, NT / Bowel sounds present
Extremities: Trace edema, normal pulses
BAKER SECOND: Non focal exam
Echo 07/17/2024-normal LV size EF 60 to 65%. Normal RV size and function. Arctic valve replacement, large pericardial effusion without hemodynamic compromise. Ascending aorta not well-visualized. IVC dilated.
EKG reviewed by me sinus rhythm, right bundle branch block
# Large pericardial effusion Without hemodynamic compromise per ECHO
Likely postoperative reasons, other causes need to be ruled out also
Check pericardial fluid for Gram stain/culture and cytology
For pericardiocentesis Saturday after Eliquis wash out.
Hold Eliquis, Heparin gtt to be stopped at midnight per D/W Cards during admission.
Cardiology following
# Paroxysmal atrial fibrillation
Hold Eliquis
Metoprolol and Amiodarone to be continued
# Potential ROBERT- pt mentioned he was receiving work up for ROBERT. Nocturnal pulse ox
# Anemia -Stable Iron studies
# Recent aortic valve replacement and aortic root replacement
# Dyslipidemia-continue atorvastatin
# Prediabetes
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
# History of ocular migraine
# Diverticulosis
# H/O Genital Herpes- Continue Valacyclovir
# DVT prophylaxis-Eliquis
# Full code
D/W RN
D/W Cardiology
Part of this note was created using voice recognition system. Occasional wrong word or��sound alike� substitutions may have inadvertently occurred due to the inherent limitations of voice recognition software. If noted kindly bring it to my
attention for correction.
Anticipated Discharge: 24 - 48 hours
Subjective/Interval History
-
Date of Service: July 19, 2024
Objective Data
-
Labs:
Laboratory Results
07/19/24 07/19/24
03:19 09:31
WBC 6.6
Hgb 11.1 L
Hct 32.6 L
Plt Count 242
APTT 98.7 H 67.5 H
Vital Signs:
Vital Signs
Temp Pulse Resp BP Pulse Ox
98.4 F 84 20 101/59 95
07/19/24 07:26 07/19/24 03:15 07/19/24 07:26 07/19/24 03:10 07/19/24 07:26
I&O
07/18/24 07/19/24 07/20/24
06:59 06:59 06:59
Intake Total 240 / 240 240 / 240
Balance 240 / 240 240 / 240
[2024-07-19 17:43] LABS: APTT 88.1 Sec (23.4-35.0)
[2024-07-19] MEDS: FLOMAX 0.4 MG PO (22:43)
[2024-07-19] MEDS: PACERONE 200 MG PO (22:43)
[2024-07-19] MEDS: LIPITOR 40 MG PO (22:43)
[2024-07-20] VITALS (8 sets, daily range): BP systolic 104–131; BP diastolic 60–82
--- NOTE | 2024-07-20 00:17 | PTCARENOTE ---
patient resting in the chair comfortably. denies any cp/sob. HR SR with a BBB 60s-70s. bp stable. reviewed plan of care with patient and verbalized understanding. NPO for a pericardiocentesis in AM. heparin gtt stopped per order. call velasquez within
reach. makes needs known.
--- NOTE | 2024-07-20 07:13 | W.PN.CD ---
Today's Communication / Plan
-
pericardiocentesis today, then resume heparin after 6 hours assuming no issues
Impression / Plan
-
Pericardial effusion, large, without overt signs of tamponade
-etiology likely post-operative
-had mild hypotension with associated lightheadedness in the outpatient setting prompting echocardiogram which did not demonstrates signs of tamponade or increased pericardial pressure
-of note, had actually felt better in the days leading up to admission after restarting amiodarone for afib and returning to sinus rhythm
-Pericardiocentesis today; currently NPO with heparin held at midnight, will send full studies
Severe bicuspid aortic stenosis s/p #25 Inspiris Resilia SAVR and #30 Hemashield [place] graft by Dr. Meraz 05/18/2024
-stable on echocardiogram
Paroxysmal atrial fibrillation
-stable in sinus rhythm on amiodarone and metoprolol
-Oral Anticoagulation: Eliquis (last dose 8am Saturday), now on heparin (held at midnight), will restart heparin drip 6 hours post pericardiocentesis assuming no contraindications, and resume OAC on discharge
-[id number]: score 1 (age 65-74)
RBBB - present on recent ECG, chronic
Dyslipidemia, LDL 49, continue atorvastatin
Prediabetes
Subjective: feels well no new symptoms, eager to get procedure done
Physical Exam
Vital Signs/Labs
Vital Signs
Temp Pulse Resp BP Pulse Ox
36.6 C 72 18 131/82 94
07/20/24 03:42 07/20/24 03:30 07/20/24 03:42 07/20/24 03:24 07/20/24 03:42
07/19/24 03:19
07/18/24 05:29
PT 17.7 Sec (11.4-14.6) H 07/17/24 12:34
INR 1.48 07/17/24 12:34
APTT Cancelled 07/19/24 23:59
Physical Exam
Constitutional: No acute distress, Comfortable and Confusion
Cardiovascular: Rhythm & rate is regular, JVD pressure is normal, Diastolic murmur absent and Systolic murmur present (12/07 LUSB)
Respiratory: Respiratory effort normal, Lungs clear to auscul., Wheeze Absent, Crackles Absent and Rhonchi Absent
GI: Soft and Distention absent
Neuro/Psych: Alert, Oriented and AO x 3
Data Reviewed
-
Date of Service: July 20, 2024
Medical Decision Making: Reviewed Test Results
EKG: Tracing Personally Visualized and interpreted
Echo: Tracing Personally Visualized and interpreted
X-Ray/CT/US/MRI/NUC/PET: Image Personally Visualized and interpreted
Labs: Labs Reviewed by me
[2024-07-20] MEDS: CLARITIN 10 MG PO (07:34)
[2024-07-20] MEDS: TOPROL XL 12.5 MG PO ×2 (07:34→20:46)
--- NOTE | 2024-07-20 09:00 | PTCARENOTE ---
Assumed care of pt from night RN. Pt received awake and alert, Ox3. VSS, CM shows NSR with [id number]'s, POX 97% on RA. Pt denies any pain or discomfort at this time. Healing incisions noted to sternum and previous chest tube sites. Pt remains NPO
for Pericardiocentesis, taken to CCL for procedure.
--- NOTE | 2024-07-20 09:10 | W.PN.HOSP.TC ---
Addendum entered and electronically signed by Lonnie Mane MD 07/20/24 11:56:
I saw and evaluated the patient. I reviewed the resident�s note and agree with findings and plan as documented in the resident�s note.
Currently denies CP/SOB.
112/80, 75, 16, 98.8 F, 97% RA
NAD, awake and alert, NCAT
RRR, normal S1/S2
CTAB anteriorly
CN2-12 intact
Pericardial effusion:
-likely related to prior aortic valve and root replacement
-s/p pericardial drain with 700cc serous fluid drained
-drain to remain in place until tomorrow
-follow fluid studies
-follow today's echo
-discussed with cardiology
Pt's updated at bedside.
Original Note:
Today's Communication/Plan
-
Pericardiocentesis today per cards
Assessment / Plan
Assessment / Plan
68-year-old male with Abnormal Echo
Denies any chest pain or shortness of breath
CVS: S1-S2 normal, sm at aa
Chest: CTA B/L
Abdomen: Soft, NT / Bowel sounds present
Extremities: Trace edema, normal pulses
EQUIPMENT HIRE MANAGER: Non focal exam
Echo 07/17/2024-normal LV size EF 60 to 65%. Normal RV size and function. Arctic valve replacement, large pericardial effusion without hemodynamic compromise. Ascending aorta not well-visualized. IVC dilated.
EKG reviewed by me sinus rhythm, right bundle branch block
# Large pericardial effusion Without hemodynamic compromise per ECHO
Likely postoperative reasons, other causes need to be ruled out also
Check pericardial fluid for Gram stain/culture and cytology
For pericardiocentesis Saturday after Eliquis wash out.
Hold Eliquis, Heparin gtt to be stopped at midnight per D/W Cards during admission.
Pericardiocentesis planned for today
Cardiology following
# Paroxysmal atrial fibrillation
Hold Eliquis
Metoprolol and Amiodarone to be continued
# Potential ROBERT- pt mentioned he was receiving work up for ROBERT. Nocturnal pulse ox revealed multiple desaturation events. Follow up in outpatient
# Anemia -Stable Iron studies
# Recent aortic valve replacement and aortic root replacement
# Dyslipidemia-continue atorvastatin
# Prediabetes
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
# History of ocular migraine
# Diverticulosis
# H/O Genital Herpes- Continue Valacyclovir
# DVT prophylaxis-Eliquis
# Full code
D/W RN
D/W Cardiology
Part of this note was created using voice recognition system. Occasional wrong word or��sound alike� substitutions may have inadvertently occurred due to the inherent limitations of voice recognition software. If noted kindly bring it to my
attention for correction.
Anticipated Discharge: 24 - 48 hours
Subjective/Interval History
-
Date of Service: July 20, 2024
Objective Data
-
Labs:
Laboratory Results
07/19/24
23:59
APTT Cancelled
Vital Signs:
Vital Signs
Temp Pulse Resp BP Pulse Ox
98.8 F 75 16 112/80 97
07/20/24 07:37 07/20/24 07:37 07/20/24 07:37 07/20/24 07:31 07/20/24 08:12
I&O
07/19/24 07/20/24 07/21/24
06:59 06:59 06:59
Intake Total 240 / 240 400 / 400
Balance 240 / 240 400 / 400
Review of Systems
-
History Source: Patient
Constitutional: Reports No Symptoms
EENT: Reports No Symptoms Reported
Respiratory: Reports No Symptoms
Cardiac: Reports No Symptoms
Abdomen/GI: Reports No Symptoms
Genitourinary: Reports No Symptoms
Neuro: Reports No Symptoms
Physical Exam
-
General: Well Developed and No Apparent Distress
Respiratory: Clear to Auscultation
Cardiac: Regular Rhythm and S1/S2
GI: Soft, Nontender and Nondistended
Musculoskeletal: No Edema
Neuro: AO x 3
Psych: Calm
--- NOTE | 2024-07-20 10:57 | ITS.CL.CATH ---
Cytology Technologist - Catheterization
Cardiac Catheterization
Procedure Report:
PERICARDIOCENTESIS PROCEDURE NOTE
Date of procedure: 07/20/2024
Referring Physician/Provider: Dr. Thomas Morales
Indication: pericardial effusion
Procedure:
After obtaining consent, the patient was brought to the cardiac [facility] laboratory and placed in a recumbent position. Echocardiogram was used to ascertain the best approach vector. A subxyphoid approach was selected. Lidocaine was given. Under ultrasound
guidance, a micropuncture needle was advanced into the pericardial space under negative pressure. After obtaining flashback of pericardial fluid, the micropuncture wire was advanced into the pericardial space and the needle was removed. The
micropuncture sheath was advanced over the wire and the wire and dilator were removed. Agitated saline was injected through the micropuncture sheath confirming its presence in the pericardial space on echocardiography. A 0.035 inch J-wire was
advanced through the micropuncture sheath and into the pericardial space. The micropuncture sheath was removed and a 6 Bengali sheath was advanced over the 0.035 inch wire. A pigtail catheter was advanced through the sheath over the J-wire and placed
in the pericardial space. The J-wire was removed. The pericardial pressure was measured. A sufficient sample of pericardial fluid was removed and sent for laboratory testing (hemoglobin, hematocrit, white blood cell count, LDH, albumin, total
protein, cytology and culture). The pigtail catheter was then connected to a Vacutainer and the pericardial space was evacuated. Serial echocardiography confirmed reduction in the pericardial effusion from large to trace. The 6 Bengali sheath was
sutured into place. The pigtail catheter was likewise sutured into place then curled around the sheath and covered by a sterile Tegaderm. The pigtail catheter was then connected to a ERICKA drain to suction.
Pericardial Volume (mL): 700 cc
Effusion type: serous
Pericardial pressures
Pre drainage (mmHg): 20
Radiation dose:
Dose (mGy): 82.82
DAP (Gy*cm2): 9.4697
Fluoroscopy Time (minutes): 2.0
Conclusions:
1. Successful placement of a 6 Bengali pericardial drain via subxyphoid approach.
2. Will pull drain as early as tomorrow pending fluid output and plan for follow up limited TTE afterward to assess reaccumulation.
3. Pericardial fluid has been sent for laboratory analysis.
Signed: Epi Ramirez MD, PhD
--- NOTE | 2024-07-20 11:05 | PTCARENOTE ---
Assumed care of pt upon tsf from CCL post pericardiocentesis where 760 ml's tea colored pericardial fluid was aspirated. Pt returns to room with pericardial drain. VSS, pt denies any pain or discomfort.
[2024-07-20] MEDS: VALTREX 500 MG PO (12:15)
[2024-07-20 12:17] LABS: Body Fluid Glucose 96 mg/dl; Body Fluid LDH 220 U/L; Body Fluid Protein 5.2 g/dl
--- NOTE | 2024-07-20 13:11 | CM ---
Chart reviewed. Patient is independent of ADLS, lives with his in a [address], [address], 0 DME. Plan is for the patient to return home. CM to follow
[2024-07-20 14:44] LABS: Body Fluid WBC 759 /CUMM
[2024-07-20 14:45] LABS: Body Fluid Granulocytes 32 %; Body Fluid Lymphocytes 0 %; Body Fluid Macrophages 15 %; Body Fluid Mesothelials 51 %; Body Fluid Other Cells 2 %
[2024-07-20 14:49] LABS: Body Fluid Hematocrit < 1 %
[2024-07-20 15:29] LABS: Body Fluid Second Tech CMB
[2024-07-20] MEDS: LIPITOR 40 MG PO (21:47)
[2024-07-20] MEDS: FLOMAX 0.4 MG PO (21:47)
[2024-07-20] MEDS: PACERONE 200 MG PO (21:48)
[2024-07-20] MEDS: TYLENOL 650 MG PO (21:52)
[2024-07-21 04:17] VITALS: BP 136/83
[2024-07-21 04:36] LABS: Hematocrit 35.5 % (39.0-52.0); Mean Corp Hgb Conc. 33.8 g/dL (33.0-37.0); Mean Corpuscular Hgb 29.1 pg (27.0-31.0); Mean Corpuscular Volume 86.2 fL (80.0-94.0); Mean Platelet Volume 8.7 fL (7.4-10.4); Platelet Count 219 10^3/uL (130-400); Red Blood Cell Count 4.12 10^6/uL (4.70-6.10); Red Cell Dist. Width 13.8 % (11.5-14.5); White Blood Cell Count 6.6 10^3/uL (4.8-10.8)
[2024-07-21 05:04] LABS: Blood Urea Nitrogen 20 mg/dl (9-20); Calcium 9.4 mg/dl (8.4-10.2); Carbon Dioxide 26 mmol/L (22-30); Chloride 103 mmol/L (98-107); Estimated Creatinine Clearance > 125 ml/min; Glucose 99 mg/dl (70-99); Potassium 4.6 mmol/L (3.5-5.1); Sodium 137 mmol/L (135-145); eGFR > 60.00
--- NOTE | 2024-07-21 06:33 | PTCARENOTE ---
ERICKA drained 20 ml this shift. Pt denies pain, discomfort or SOB. VSS NS on monitor.
--- NOTE | 2024-07-21 07:33 | W.PN.CD ---
Today's Communication / Plan
-
discharge home today after drain pull on Ibprofen taper (600 TID x1week, 400 TID x1week, 200 TID x1week), resume eliquis tonight, TTE 07/23, repeat TTE in 6 weeks
Impression / Plan
-
Pericardial effusion, large, without overt signs of tamponade, now s/p sucessful pericardiocentesis 07/20
-etiology likely post-operative
-had mild hypotension with associated lightheadedness in the outpatient setting prompting echocardiogram which did not demonstrates signs of tamponade or increased pericardial pressure
-of note, had actually felt better in the days leading up to admission after restarting amiodarone for afib and returning to sinus rhythm
-700 cc serous fluid drained and sent for analysis - initial labs results with elevated protein (5.2) and LDH (220) consistent with exudative process
-follow up all fluid studies
-additional 170cc yesterday but minimal output overnight --> will pull drain this morning and can discharge home with scheduled follow up TTE 07/23 2PM at [facility] to monitor for short term reaccumulation
-to decrease risk of recurrent post-pericardiotomy effusion, recommend Ibprofen 600 TID for 1 week, followed by 400 TID for 1 week, then 200 TID for 1 week
-repeat additional repeat TTE in 6 weeks to evaluate for durable resolution
Severe bicuspid aortic stenosis s/p #25 Inspiris Resilia SAVR and #30 Hemashield enterprise graft [address] Dr. Meraz 05/18/2024
-stable on echocardiogram
Paroxysmal atrial fibrillation
-stable in sinus rhythm on amiodarone and metoprolol
-Oral Anticoagulation: Eliquis (to resume tonight)
-[id number]: score 1 (age 65-74)
RBBB - present on recent ECG, chronic
Dyslipidemia, LDL 49, continue atorvastatin
Prediabetes
Subjective: feels well no new symptoms
Physical Exam
Vital Signs/Labs
Vital Signs
Temp Pulse Resp BP Pulse Ox
36.6 C 70 20 136/83 96
07/21/24 04:15 07/21/24 04:17 07/21/24 04:15 07/21/24 04:17 07/21/24 04:15
07/21/24 04:23
07/21/24 04:23
PT 17.7 Sec (11.4-14.6) H 07/17/24 12:34
INR 1.48 07/17/24 12:34
APTT Cancelled 07/19/24 23:59
Physical Exam
Constitutional: No acute distress and Comfortable
Cardiovascular: Rhythm & rate is regular
Respiratory: Respiratory effort normal, Lungs clear to auscul., Wheeze Absent, Crackles Absent and Rhonchi Absent
Neuro/Psych: Alert, Oriented and AO x 3
Data Reviewed
-
Date of Service: July 21, 2024
Medical Decision Making: Reviewed Test Results, Test Interpretation and Review of Case with other Provider
Labs: Labs Reviewed by me
[2024-07-21 07:37] VITALS: BP 109/79
--- NOTE | 2024-07-21 08:10 | PTCARENOTE ---
Received pt from mold shifter RN; pt AAOx3 and resting comfortably in chair; NSR BBB on monitor and VSS; Pericardial drain intact; lungs clear; positive bowel sounds; pt voiding clear yellow urine; palpable pulses throughout; no edema noted; see
nursing documentation for further details.
[2024-07-21] MEDS: CLARITIN 10 MG PO (08:13)
[2024-07-21] MEDS: VALTREX 500 MG PO (08:14)
[2024-07-21] MEDS: TOPROL XL 12.5 MG PO (08:14)
--- NOTE | 2024-07-21 08:27 | W.PN.HOSP.TC ---
Addendum entered and electronically signed by Lonnie Mane MD 07/21/24 11:23:
Total time spent on d/c = 35 min. This included today's physical exam, progress note, review of laboratory and diagnostic data, preparation of discharge documents and prescriptions, and discussions about the pt's hospital course and discharge plan
with the patient and other manager medical writing involved in the patient's care.
Addendum entered and electronically signed by Lonnie Mane MD 07/21/24 08:37:
I saw and evaluated the patient. I reviewed the resident�s note and agree with findings and plan as documented in the resident�s note.
Currently denies CP/SOB.
112/80, 75, 16, 98.8 F, 97% RA
NAD, awake and alert, NCAT
remains RRR, normal S1/S2
remains CTAB anteriorly
remains CN2-12 intact
Pericardial effusion:
-likely related to prior aortic valve and root replacement
-s/p pericardial drain with 700cc serous fluid drained
-Drain with minimal output overnight. Will be removed today.
-discussed with cardiology. Medically cleared for discharge with an echo in 2 days and then again in 6 weeks. Will be placed on Motrin taper on discharge.
Total time spent on d/c = 31 min. This included today's physical exam, progress note, review of laboratory and diagnostic data, preparation of discharge documents and prescriptions, and discussions about the pt's hospital course and discharge plan
with the patient and other manager medical writing involved in the patient's care.
Original Note:
Today's Communication/Plan
-
Discharge today. Ibuprofen taper per cards recommendation. Repeat TTE in outpatient.
Assessment / Plan
Assessment / Plan
68-year-old male with Abnormal Echo
Denies any chest pain or shortness of breath
Echo 07/17/2024-normal LV size EF 60 to 65%. Normal RV size and function. Arctic valve replacement, large pericardial effusion without hemodynamic compromise. Ascending aorta not well-visualized. IVC dilated.
EKG reviewed by me sinus rhythm, right bundle branch block
# Large pericardial effusion Without hemodynamic compromise per ECHO
Likely postoperative reasons, other causes need to be ruled out also
Follow pericardial fluid for Gram stain/culture and cytology
Pericardiocentesis performed. Drained 700cc. Fluid sent for analysis. Drain placed.
Drain removal today
Discharge with follow up TTE 07/23 with cards
Ibuprofen 600 3 times daily for 1 week, followed by 400 3 times daily for 1 week, then 200 3 times daily for 1 week per cards
Additional TTE in 6 weeks
Cardiology following
# Paroxysmal atrial fibrillation
Resume Eliquis tonight after discharge
Metoprolol and Amiodarone to be continued
# Potential ROBERT- pt mentioned he was receiving work up for ROBERT. Nocturnal pulse ox revealed multiple desaturation events. Follow up in outpatient
# Anemia -Stable Iron studies
# Recent aortic valve replacement and aortic root replacement
# Dyslipidemia-continue atorvastatin
# Prediabetes
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
# History of ocular migraine
# Diverticulosis
# H/O Genital Herpes- Continue Valacyclovir
# DVT prophylaxis-Eliquis restarting after discharge
# Full code
D/W RN
D/W Cardiology
Part of this note was created using voice recognition system. Occasional wrong word or��sound alike� substitutions may have inadvertently occurred due to the inherent limitations of voice recognition software. If noted kindly bring it to my
attention for correction.
Anticipated Discharge: Today
Subjective/Interval History
-
Date of Service: July 21, 2024
Objective Data
-
Labs:
Laboratory Results
07/21/24
04:23
WBC 6.6
Hgb 12.0 L
Hct 35.5 L
Plt Count 219
Sodium 137
Potassium 4.6
Chloride 103
Carbon Dioxide 26
BUN 20
Creatinine 0.7
Glucose 99
Calcium 9.4
Vital Signs:
Vital Signs
Temp Pulse Resp BP Pulse Ox
97.8 F 74 20 109/79 96
07/21/24 07:45 07/21/24 08:15 07/21/24 07:45 07/21/24 07:37 07/21/24 07:45
I&O
07/20/24 07/21/24 07/22/24
06:59 06:59 06:59
Intake Total 400 / 400 250 / 250
Output Total 170 / 170
Balance 400 / 400 80 / 80
Review of Systems
-
History Source: Patient
EENT: Reports No Symptoms Reported
Respiratory: Reports No Symptoms
Cardiac: Reports No Symptoms
Abdomen/GI: Reports No Symptoms
Genitourinary: Reports No Symptoms
Neuro: Reports No Symptoms
Physical Exam
-
General: Well Developed, Well Nourished and No Apparent Distress
Respiratory: Clear to Auscultation
Cardiac: Regular Rhythm and S1/S2
GI: Soft, Nontender and Nondistended
Skin: Warm and Dry
Neuro: AO x 3
Psych: Calm
--- NOTE | 2024-07-21 08:30 | PTCARENOTE ---
Addendum entered by Fabiana Blanc RN 07/21/24 09:09:
Pericardial drain.
Original Note:
Pericardia drain removed by MD at bedside.
--- NOTE | 2024-07-21 12:31 | W.DCSUMMARY ---
Addendum entered and electronically signed by Lonnie Mane MD 07/21/24 12:38:
Read, reviewed, and agree. See same day progress note for additional details.
Original Note:
Discharge Summary
Discharge Data
Date of Admission: 07/17/24
Date of Discharge: 07/21/24
-
Pending Results: Yes
Additional Pending Results:
Pericardial fluid analysis
Hospital Course
Primary diagnosis:
Pericardial effusion
Pericardiocentesis
Paroxysmal atrial fibrillation
Secondary diagnoses:
Potential obstructive sleep apnea
Anemia
Dyslipidemia
Prediabetes
Genital herpes
Recent aortic valve replacement and aortic root placement
Hospital course:
Johnny is a 68-year-old male who presented to the ED on 07/17/2024 after abnormal echocardiogram revealing pericardial effusion. In May, patient had an aortic root replacement and aortic valve replacement surgery. Since then he has experienced
episodes of A-fib and some shortness of breath with exertion. Cardiology followed up with patient and ordered an echo. Upon echo results showing large pericardial effusion, head esthetician recommended for patient to come to the ED. Large pericardial
effusion likely as a result of recent surgery. Patient was admitted, and placed on heparin drip while Eliquis washed out of his system. Patient underwent cardiac catheterization and pericardiocentesis on 07/20/2024 and drained 700 cc of fluid.
Today, patient is clinically stable. Drain removed. Cardiology recommended ibuprofen taper and to restart Eliquis tonight along with previous home medications. Pericardial fluid analysis pending. Patient has plans to follow-up with cardiology
and repeat TTE later this week.
Discharge Plan
-
Patient Disposition: Home (Routine Discharge)
Discharge Diagnosis/Procedures: Pericardial effusion, pericardiocentesis, paroxysmal atrial fibrillation
Diet: As tolerated
Activity: No restrictions
Driving Restrictions: As prior to admission
Bathing Restrictions: None
Others Tests: Echo follow-up study scheduled for 07/23/24 at 2 PM at [facility] located at [address], [address], [place] [address], [address].
Referrals:
Kobe Meyer DO [Family Provider] - in one week
Epi Ramirez MD [Active] - in six weeks (Repeat TTE. Another cardiology provider also good)
Additional Discharge Medication Instructions: 600mg ibuprofen (3 tabs) three times a day for the first week, 400mg (2 tabs) three times a day for the second week, and 200mg (1 tab) three times a day for the third week then stop.
Prescriptions:
New
ibuprofen 200 mg capsule
200 mg PO TID Qty: 150 0RF
Continued
fexofenadine 180 MG tablet
180 mg PO DAILY
phenylephrine HCl [Sudafed PE] 10 MG tablet
10 mg PO BID
atorvastatin 40 MG tablet
40 mg PO HS
valacyclovir 500 MG tablet
500 mg PO DAILY
tamsulosin 0.4 mg Capsule
0.4 mg PO HS
Centrum Silver 0.4 mg-300 mcg- 250 mcg Tablet
1 tab PO DAILY
coenzyme Q10 [Co Q-10] 200 mg Capsule
200 mg PO HS
omega 6-kge-chj-fish oil [Fish Oil] 1,200 (144-216) mg Capsule
1 cap PO DAILY
acetaminophen 325 mg Tablet
650 mg PO Q4HPRN PRN (Reason: mild pain,headache,temp >101F ) Qty: 0 0RF
ferrous sulfate [FeroSul] 325 mg (65 mg iron) Tablet
325 mg PO DAILY Qty: 30 0RF
ascorbic acid (vitamin C) [Vitamin C] 500 mg Tablet
1,000 mg PO DAILY Qty: 30 0RF
Eliquis 5 mg Tablet
5 mg PO BID Qty: 60 0RF
metoprolol succinate 25 mg Tablet Extended Release 24 Hr
12.5 mg PO BID
amiodarone [Pacerone] 200 mg tablet
200 mg PO HS
Discharge Orders:
Discharge Patient (As Directed); Ordered 07/21/24
Ordered By: Lonnie Mane
Care Plan Goals
Care Plan Goals:
Problem: Readiness for enhanced knowledge related to diagnosis and treatment plan
Goal: Understand your diagnosis and treatment plan needs, including medications if applicable.
Instructions: Know your diagnosis, underlying causes and treatment plan options, including medications if applicable. Consult with your health care team to learn about your diagnosis and treatment plan, including medications if applicable.
Discharge Date and Time
Print Language: LAO
== END 2024-07-21 13:04 | disposition home or self-care (01) | DRG 316 ==
LOC: IVU 14:43
PROVIDERS: Student in an Organized Health Care Education/Training Program; ADMITTING PHYSICIAN Hospitalist; ATTENDING PHYSICIAN Internal Medicine; EMERGENCY PHYSICIAN Emergency Medicine; FAMILY PHYSICIAN Family Medicine; OTHER PHYSICIAN Internal Medicine Cardiovascular Disease
PROC: 0W9D30Z Drainage of Pericardial Cavity with Drainage Device, Percutaneous Approach (ICD-10-PCS; 2024-07-20)
DX: I31.39 Other pericardial effusion (noninflammatory) (principal); I31.4 Cardiac tamponade; E78.00 Pure hypercholesterolemia, unspecified; I35.0 Nonrheumatic aortic (valve) stenosis; R73.03 Prediabetes; I48.0 Paroxysmal atrial fibrillation; D64.9 Anemia, unspecified; G47.33 Obstructive sleep apnea (adult) (pediatric); I95.9 Hypotension, unspecified; I45.19 Other right bundle-branch block; A60.02 Herpesviral infection of other male genital organs; J30.2 Other seasonal allergic rhinitis; Z96.641 Presence of right artificial hip joint; Z87.74 Personal history of (corrected) congenital malformations of heart and circulatory system; Z95.3 Presence of xenogenic heart valve; Z88.2 Allergy status to sulfonamides; Z88.1 Allergy status to other antibiotic agents; Z88.0 Allergy status to penicillin; Z85.47 Personal history of malignant neoplasm of testis; Z79.899 Other long term (current) drug therapy; Z95.828 Presence of other vascular implants and grafts; Z79.01 Long term (current) use of anticoagulants
CPT/HCPCS: 88305; 93308; 33016; 36415; 71046; 80048; 80053; 80061; 82607; 82728; 82945; 82962; 83036; 83540; 83550; 83615; 84157; 85014; 85025; 85027; 85610; 85730; 87015; 87070; 87102; 87116; 87205; 87206; 88112; 88341; 88342; 89051; 93005; 93306; 94762; 99285; C1894

== ENCOUNTER → 2024-07-23 12:41 | Outpatient (REF) | payer MEDICARE, SELFPAY | LOC: HWRCS 12:41 | PROVIDERS: ATTENDING PHYSICIAN Internal Medicine Cardiovascular Disease; FAMILY PHYSICIAN Family Medicine | DX: I31.39 Other pericardial effusion (noninflammatory) (principal); E78.2 Mixed hyperlipidemia; Q23.1 Congenital insufficiency of aortic valve | CPT/HCPCS: 93308 ==

== ENCOUNTER 2024-07-27 08:57 | Inpatient (IN) | payer SELFPAY ==
--- NOTE | 2024-07-27 08:15 | HPS.HSE ---
Family Physician
-
Family Physician: Kobe Meyer
Chief Complaint
-
pre-admit for diagnotic testing prior to foreign body removal07/28
History of Present Illness
68-year-old male (known to Dr. Avila, his primary wool hat flanger) with dyslipidemia, prediabetes, RBBB, bicuspid AV with severe , and aortic root dilatation who is underwent elective AVR #25 Inspiris RESILIA and ascending aortic
replacement with a #30 mm Hemashield graft with Dr. Meraz, 05/18/24. Post-op course uneventful, with a brief paroxysmal atrial fibrillation (2 minutes) prior to discharge on 05/24. Readmitted 05/30-06/01 for atrial fibrillation and BRBPR d/t
hemorrhoids. Treated with increased dose of Toprol/Eliquis (CHADs-VASc score 1). Patient had outpatient follow-up with cardiology and was found to have a large pericardial effusion on echocardiogram. Patient was admitted for Eliquis washout and
underwent pericardiocentesis on 07/20 for 700cc. Eliquis was resumed and last dose confirmed by patient was 07/[address] Meraz reviewed case and identified retained foreign body (likely Raytec). Patient notified of issue and need of
removal by Dr. Meraz. Patient admitted 07/27 for pre-op diagnostics including a CT chest with/without contrast to detail the anatomy. States he feels like he never felt progressively better since surgery.
Medical History
Past Medical History
Past Medical History: Reports Hypercholesterolemia, Hyperthyroidism and Other (pre-diabetes (A1C 6.1); obesity (BMI 37.1); BPH; testicular cancer; chronic RBBBB; post-op atrial fibrillation; pericardial effusion)
Past Surgical History: Reports Cardiac (AVR # 25mm Inspiris & Asc Ao replacement #30 Hemashield (05/18/24))
Social History
Tobacco: Non-smoker
Alcohol: Occasional
Drug: None (no use since surgery 05/18/24) and Marijuana
Personal:
Living: With Family
Employment: Retired
Family History
Family History: Not pertinent
Allergies / Home Medications
Allergies reflects when Allergies were last updated in [facility].
Home Medications with original date entered in [facility]
Allergy/Medication List:
Allergies
Allergy/AdvReac Type Severity Reaction Status Date / Time
azithromycin Allergy Nausea Verified 05/22/24 22:38
erythromycin base Allergy Nausea Verified 05/22/24 22:38
Penicillins Allergy Rash Verified 04/29/24 12:14
Sulfa (Sulfonamide Allergy Rash Verified 04/29/24 12:14
Antibiotics)
Home Medications
�Medication �Instructions �Recorded
atorvastatin 40 mg tablet 40 mg PO HS High Cholesterol 12/07/21
fexofenadine 180 mg tablet 180 mg PO DAILY Allergies 12/07/21
phenylephrine HCl 10 mg tablet 10 mg PO BID Allergies 12/07/21
(Sudafed PE)
valacyclovir 500 mg tablet 500 mg PO DAILY Infection 12/07/21
coenzyme Q10 200 mg capsule (Co 200 mg PO HS Supplement 03/23/24
Q-10)
gusslcwa-nnh-hzbms acid 0.4 1 tab PO DAILY Supplement 03/23/24
mg-lycopene 300 mcg-lutein 250 mcg
tablet (Centrum Silver)
omega 0-xnm-lti-fish oil 1,200 mg 1 cap PO DAILY Supplement 03/23/24
(144 mg-216 mg) capsule (Fish Oil)
tamsulosin 0.4 mg capsule 0.4 mg PO HS Urinary Issue 03/23/24
ascorbic acid (vitamin C) 500 mg 1,000 mg (2 x 500 mg) PO DAILY #30 05/24/24
tablet (Vitamin C) tabs
ferrous sulfate 325 mg (65 mg 325 mg PO DAILY #30 tabs 05/24/24
iron) tablet (FeroSul)
apixaban 5 mg tablet (Eliquis) 5 mg PO BID #60 tabs 06/01/24
amiodarone 200 mg tablet (Pacerone) 200 mg PO HS Arrhythmia 07/17/24
metoprolol succinate 25 mg 12.5 mg PO BID Blood Pressure 07/17/24
tablet,extended release 24 hr
colchicine 0.6 mg tablet 0.6 mg PO BID 07/27/24
ibuprofen 200 mg capsule 600 mg PO TID Anti-inflammatory 07/27/24
Review of Systems
-
History Source: Patient
A 12 point ROS was completed and negative except as noted: Yes
Constitutional: Reports No Symptoms
EENT: Reports No Symptoms
Respiratory: Reports No Symptoms
Cardiac: Reports No Symptoms
Abdomen/GI: Reports No Symptoms
: Reports No Symptoms
Musculoskeletal: Reports No Symptoms
Skin: Reports No Symptoms
Neurological: Reports No Symptoms
Endocrine: Reports No Symptoms
Hematologic/Lymphatic: Reports No Symptoms
Psych: Reports No Symptoms
Physical Exam
Physical Exam
General: Well Developed, Well Nourished, No Apparent Distress, Comfortable, Conversant and Obese
HEENT: NormoCephalic, Anicteric, Moist mucous membranes, [place] Conjunctivae and No Ptosis
Respiratory: Clear
Cardiac: S1/S2, Regular Rhythm and Other (median sternotomy well healed)
Breast: N/A
GI: Soft, Non Tender, Non Distended and Normal Bowel Sounds
Rectal: Deferred by Provider
Genito-urinary: Deferred by me
Musculoskeletal: No Clubbing, No Cyanosis, No Edema and Normal Gait & Station
Skin: Warm and Dry
Neuro: AO x 3, No Motor Deficits and Nonfocal/grossly intact
Hematologic/Lymphatic: No Lymphadenopathy
Psych: Intact Judgment/Insight
Data Reviewed
-
Diagnostic Radiology: Report Reviewed by me and Discussed with Physician
CT Scan: Report Reviewed by me and Discussed with Physician
Lab Data: Labs Reviewed by me and Discussed with Physician
Impression/Plan
-
IMPRESSION:
68 year old male admitted for removal of retained foreign body
PLAN:
CT chest with/without contrast
Surgeon to review surgical procedure, risk/benefit, and expected recovery trajectory
last dose Eliquis in morning 07/24
[2024-07-27 09:11] VITALS: BP 143/78
[2024-07-27 09:41] VITALS: BMI 35.7
[2024-07-27 10:26] LABS: Hematocrit 37.2 % (39.0-52.0); Hemoglobin 12.4 g/dL (13.0-18.0); Mean Corp Hgb Conc. 33.3 g/dL (33.0-37.0); Mean Corpuscular Hgb 29.2 pg (27.0-31.0); Mean Corpuscular Volume 87.5 fL (80.0-94.0); Mean Platelet Volume 9.1 fL (7.4-10.4); Platelet Count 201 10^3/uL (130-400); Red Blood Cell Count 4.25 10^6/uL (4.70-6.10); Red Cell Dist. Width 13.9 % (11.5-14.5); White Blood Cell Count 6.3 10^3/uL (4.8-10.8)
[2024-07-27 10:36] VITALS: BMI 35.7
[2024-07-27 10:43] LABS: Blood Urea Nitrogen 30 mg/dl (9-20); Calcium 8.8 mg/dl (8.4-10.2); Carbon Dioxide 25 mmol/L (22-30); Chloride 103 mmol/L (98-107); Estimated Creatinine Clearance > 125 ml/min; Glucose 95 mg/dl (70-99); Potassium 4.5 mmol/L (3.5-5.1); Sodium 137 mmol/L (135-145); eGFR > 60.00
[2024-07-27 10:44] LABS: INR 1.11; PT 14.1 Sec (11.4-14.6)
[2024-07-27 10:45] LABS: APTT 27.5 Sec (23.4-35.0)
[2024-07-27 11:11] VITALS: BP 122/79
--- NOTE | 2024-07-27 13:51 | CM ---
Reviewed chart. Met with and Mrs. Giraldo to review discharge plans. He states prior to admission he resides with his spouse in a one story home with four steps to enter. He states prior to admission he was independent with ambulation and adls.
He states he does not have any DME in the home. He states he has a prescription plan and uses [facility]. Medical work-up in progress. The discharge plan is to return home with his spouse when medically stable.
[2024-07-27 15:41] VITALS: BP 110/64
--- NOTE | 2024-07-27 18:06 | W.PN.UPDATE ---
Update Note
Progress Note Update
CARDIAC SURGERY ATTENDING:
I spoke with Mr. Johnny Giraldo and his at bedside this afternoon. I reviewed his prior chest x-ray imaging with them as well as his CT chest from today. We discussed the planned operative approach for removal of this retained sponge. I
anticipate a mini-right anterolateral thoracotomy approach. We discussed the possibility that if the sponge was unable to be safely removed from this approach that there was a small chance that a reentry sternotomy would be required. We discussed
the procedural risks and informed consent was obtained. All questions were answered to the best of my abilities.
I will proceed to the operating room tomorrow 07/28/2024.
Please call with any questions or concerns.
Juan Meraz MD
[phone]
[2024-07-27 18:37] VITALS: BP 145/97
[2024-07-27 22:03] VITALS: BP 118/77
[2024-07-27] MEDS: LIPITOR 40 MG PO (22:36)
[2024-07-27] MEDS: FLOMAX 0.4 MG PO (22:36)
[2024-07-27] MEDS: PACERONE 200 MG PO (22:36)
[2024-07-27 23:13] VITALS: BP 104/68
[2024-07-27] MEDS: TOPROL XL 12.5 MG PO (23:13)
[2024-07-27] MEDS: COLCHICINE 0.6 MG PO (23:13)
[2024-07-28] VITALS (10 sets, daily range): BP systolic 93–125; BP diastolic 71–92; PULSE 2–61; BMI 35.1
--- NOTE | 2024-07-28 00:21 | PTCARENOTE ---
Addendum entered by Mani Camara RN 07/28/24 01:17:
patient states history of hemorrhoids. patient states having small BM prior to shower with some scant blood in toilet.
Original Note:
patient resting in bed comfortably. AAOx3. independent in the room. denies any pain. SR with a BBB 60s-70s. bp stable. CVOR prep completed. CHG shower per patient with no issues. NPO at midnight. reviewed plan of care with patient and verbalized
understanding. call velasquez within reach.
[2024-07-28] MEDS: BACTROBAN 2% OINTMENT 1 APPLIC NASAL (06:09)
[2024-07-28] MEDS: PROTONIX 40 MG PO (06:09)
[2024-07-28] MEDS: MAGNESIUM OXIDE 500 MG PO (06:09)
[2024-07-28] MEDS: LOPRESSOR 12.5 MG PO (06:32)
--- NOTE | 2024-07-28 06:39 | PTCARENOTE ---
updated Ed Yasmin CV PA on patients blood pressures this morning. 93/76, 109/92. give lopressor 12.5 mg. hold 25 mg, see mar.
CVOR prep completed this morning with no issues. NPO since midnight.
--- NOTE | 2024-07-28 08:11 | PTCARENOTE ---
Rec'd report from prev nursing shift; Pt AAOx3, awaiting surgery this AM. CVOR called for pt & pt transferred in bed to OR w/ordered IV antibiotics. Pt to be transferred to CVICU post procedure. Belongings to be transferred to new room once
assigned.
[2024-07-28 08:14] LABS: Urine Albumin Negative (Neg - Trace); Urine Bilirubin Negative (Negative); Urine Character Clear (Clear); Urine Color Yellow; Urine Glucose Negative (Negative); Urine Ketone Negative (Negative); Urine Leukocyte Negative (Negative); Urine Nitrite Negative (Negative); Urine Occult Blood Negative (Negative); Urine Specific Gravity 1.015 (<1.030); Urine Urobilinogen Negative (Neg - 1+)
--- NOTE | 2024-07-28 10:38 | W.IMMPOSTOP ---
Addendum entered and electronically signed by Juna Meraz MD 07/28/24 12:07:
[id number]
Original Note:
Surgical Immed Post Op Note
-
CARDIAC SURGERY OPERATIVE NOTE:
Preoperative Dx:
Retained surgical sponge
Postoperative Dx:
Same
Procedures:
1) R STRIP CUTTER access w/ tactile & U/S guidance, micropuncture technique, 5Fr sheath placement
2) R CFV access w/ U/S guidance, micropuncture technique, 5Fr sheath placement
3) Minimally-invasive, RIGHT anterolateral thoracotomy
4) VATS-assisted removal of retained surgical sponge from lateral RA/SVC junction
5) Intraoperative completion CXR
Surgeon:
Juan Meraz M.D.
Bread Racker:
Delmar Gamez P.A.-C.
Anesthesia:
Hira Herndon M.D. and Michael Raygoza COsitoR.N.A.; GET w/ dual-lumen ETT and isolated lung ventilation
Findings:
Both the R STRIP CUTTER & R CFV accessed on first pass w/ U/S guidance; 5Fr sheath connected to infusion/monitoring lines
Right lung with minor adhesions to the right lateral pericardium that were able to be lysed w/ blunt and electrocautery aided dissection
Transverse pericardiotomy performed w/ expression of inflammatory/purulent drainage (non-malodorous) - cultures obtained
Complete removal of retained surgical raytec sponge requiring circumferential lysis of adhesions to RA/SVC/pericardium
Copious irrigation (>1L) of cavity w/ ABX solution
Placement of CT x 1
Implants:
5Fr RIGHT STRIP CUTTER/CFV sheaths
CT x 1 (24Fr)
Complications:
None
Condition:
Stable/guarded to recovery
Extubated in OR
Intraoperative CXR w/ NO remaining foreign bodies
--- NOTE | 2024-07-28 11:36 | PHA.VAN.IN ---
Assessment
- Assessment
Renal Function: Appears similar to baseline
Concomitant Antimicrobials: cefazolin
AUC Dosing Plan
- Dosing Variables
Dosing Weight (kg): 114
Dosing CrCl (ml/min): 125
Vd coefficient (L/kg): 0.6
- Empiric Dosing
Initial / Loading Dose: 1500mg - pre-op
Maintenance Regimen: Vanc 1750mg Q12H starting at 1800
Estimated AUC (mcg*h/mL): 524
Estimated Peak (mcg*h/mL): 35
Estimated Trough (mcg/ml): 11.9
Estimated Half Life (H): 6.4
- Monitoring
No levels ordered at this time: consider levels in next few days
Pharmacokinetics Vancomycin I
- -
Patient Age: 68
Patient Sex: Male
Vancomycin Day #: 1
Indication: Prophylaxis (Surg,Hiv,...) (foreign body removal)
Requesting Provider: Estelita Stratton
Pertinent Antimicrobial Allergies:
azithromycin - nausea
erythromycin - nausea; childhood
penicillins - rash; childhood; tolerates cephalexin
sulfonamide antibiotics - rash; childhood
Height / Weight:
Height 5 ft 11 in
Actual Weight 114 kg
Pertinent Past Medical History: BMI ~35
- Vital Signs / Lab Results
Temp Pulse Resp BP Pulse Ox
98.1 F 62 16 109/92 95
07/28/24 05:44 07/28/24 11:30 07/28/24 11:30 07/28/24 06:06 07/28/24 11:30
Lab Results - Hematology
07/27/24
10:02
WBC 6.3
Lab Results - Chemistry
07/27/24
10:02
BUN 30 H
Creatinine 0.7
Estimated Creat Clear > 125
Lab Results - Urine
07/28/24
07:50
Urine Nitrite (Reflex) Negative
Leukocyte Esterase Rfl Negative
--- NOTE | 2024-07-28 11:48 | PTCARENOTE ---
Received pt form [facility] at 1130; pt AAO3 and sleepy; NSR on monitor and VSS; Left wrist A-line, Right Femoral A-line and Right Femoral [place] line and PIV x2; all lines leveled and zeroed; Lungs diminished; CT x1 to -20 wall suction no air leak and no
crepitus noted; hypoactive bowel sounds; pt due to void Shaffer removed in OR at 1120; palpable pulses throughout; no edema noted; surgical site C/D/I; see nursing documentation for further details.
[2024-07-28 11:49] LABS: B.E. -2.8 mmol/L; HCO3 25.1 mmol/L (21-28); Ionized Calcium 1.14 mMOL/L (1.15-1.33); O2 Saturation % 95.4 % (94-98); O2 Therapy nasal cannula; PCO2 56 mmHg (35-48); PO2 76 mmHg (83-108); Potassium 4.5 mMOL/L (3.5-5.1); Sodium 131 mMOL/L (136-145); pH 7.26 (7.35-7.45)
[2024-07-28 11:55] LABS: Hematocrit 37.6 % (39.0-52.0); Hemoglobin 12.7 g/dL (13.0-18.0); Mean Corp Hgb Conc. 33.8 g/dL (33.0-37.0); Mean Corpuscular Hgb 29.1 pg (27.0-31.0); Platelet Count 195 10^3/uL (130-400); Red Blood Cell Count 4.37 10^6/uL (4.70-6.10); Red Cell Dist. Width 13.9 % (11.5-14.5); White Blood Cell Count 9.1 10^3/uL (4.8-10.8)
[2024-07-28 11:59] LABS: APTT 26.7 Sec (23.4-35.0); INR 1.19; PT 14.9 Sec (11.4-14.6)
--- NOTE | 2024-07-28 12:09 | PTCARENOTE ---
Reviewed ABGs' respiratory at bedside and pt placed on BiPAP 11/05.
[2024-07-28] MEDS: VANCOCIN 300 MG IV (12:17)
[2024-07-28] MEDS: VANCOCIN 300 ML IV (12:17)
[2024-07-28] MEDS: THERAGRAN PO (12:18)
[2024-07-28] MEDS: FEOSOL PO (12:18)
[2024-07-28] MEDS: CLARITIN PO (12:18)
[2024-07-28] MEDS: VALTREX PO (12:19)
[2024-07-28] MEDS: NEURONTIN PO (12:19)
[2024-07-28] MEDS: SENOKOT PO (12:19)
[2024-07-28] MEDS: VITAMIN C PO (12:19)
[2024-07-28] MEDS: MIRALAX PO (12:19)
[2024-07-28 12:23] LABS: ALT (SGPT) 47 U/L (0-50); AST (SGOT) 28 U/L (17-59); Albumin 3.6 g/dl (3.5-5.0); Alkaline Phosphatase 98 U/L (38-126); Blood Urea Nitrogen 22 mg/dl (9-20); Calcium 8.2 mg/dl (8.4-10.2); Carbon Dioxide 26 mmol/L (22-30); Chloride 103 mmol/L (98-107); Estimated Creatinine Clearance > 125 ml/min; Glucose 155 mg/dl (70-99); Potassium 4.9 mmol/L (3.5-5.1); Sodium 134 mmol/L (135-145); Total Bilirubin 0.7 mg/dl (0.2-1.3); Total Protein 6.2 g/dl (6.3-8.2); eGFR > 60.00
[2024-07-28 13:29] LABS: ACT-LR - POC 126 Seconds (116-155)
--- NOTE | 2024-07-28 13:34 | PTCARENOTE ---
ACT 126 R Chayito CV POLYMERIZATION SUPERVISOR at bedside and Right femoral arterial and dillan lines removed
[2024-07-28] MEDS: DILAUDID 0.5 MG IV (13:36)
--- NOTE | 2024-07-28 14:00 | PTCARENOTE ---
I Nick resulted 1.14 and 1.13 reviewed this with CV WIRE MESH KNITTER no further action at this time; assessment unchanged; NSR on monitor and VSS.
[2024-07-28 14:04] LABS: B.E. -0.2 mmol/L; HCO3 26.4 mmol/L (21-28); O2 Saturation % 98.8 % (94-98); PCO2 50 mmHg (35-48); PO2 118 mmHg (83-108); pH 7.33 (7.35-7.45)
[2024-07-28 14:06] LABS: Sodium 130 mMOL/L (136-145)
[2024-07-28 14:07] LABS: Ionized Calcium 1.13 mMOL/L (1.15-1.33); Potassium 4.3 mMOL/L (3.5-5.1)
[2024-07-28] MEDS: TYLENOL PO (15:04)
[2024-07-28] MEDS: ANCEF 5 IV ×2 (15:06→22:56)
[2024-07-28] MEDS: ANCEF 15 MG IV (15:06)
[2024-07-28] MEDS: NEURONTIN 100 MG PO ×2 (16:08→22:57)
[2024-07-28] MEDS: TORADOL 15 MG IV (16:08)
[2024-07-28] MEDS: VANCOCIN 535 MG IV (17:52)
--- NOTE | 2024-07-28 17:59 | PTCARENOTE ---
Left A-line removed per order and pt placed on color television console monitor per order.
[2024-07-28] MEDS: DILAUDID 0.25 MG IV (20:27)
[2024-07-28] MEDS: SENOKOT 8.6 MG PO (20:27)
--- NOTE | 2024-07-28 20:30 | PTCARENOTE ---
Patient received resting in bed watching television. Patient A+A+Ox3. No neurological deficits noted. No c/o headache, dizziness or lightheadedness. O2 at 2L via NC. SaO2 96%. No s/s of respiratory distress. No c/o SOB. Right Pleural Chest
Tube - Intact and patent - 5 ml red drainage - No air leak, tidaling or crepitus noted. Right lateral chest Aquacell dressing intact. Chest tube dressing intact. Sinus Rhythm. BBC. Heart rate 60-70's. Blood pressure 122/73 (87). Patient with
no c/o chest pain, pressure or discomfort. Normoactive bowel sounds. No BM. No c/o nausea. No vomiting. Condom catheter - 300 ml yellow urine. Right groin dressing intact - No hematoma, bleeding or oozing. Positive, palpable pulse. Trace
edema. Patient with no c/o back or flank pain. Assessment as documented.
--- NOTE | 2024-07-28 22:00 | RESPNOTE ---
Spoke with the JAI Alvarez and was told that the PT will not wear the BIPAP tonight as ordered for HS use due to inability to tolerate. PT has diagnosed ROBERT, but has only very recently obtained a home machine. Will continue to monitor resp
status throughout the night on nasal O2 only. Will attempt placement again tomorrow night.
[2024-07-28] MEDS: FLOMAX 0.4 MG PO (22:57)
[2024-07-28] MEDS: LIPITOR 40 MG PO (22:57)
[2024-07-28] MEDS: TYLENOL 1000 MG PO (22:57)
[2024-07-28] MEDS: PACERONE 200 MG PO (22:57)
--- NOTE | 2024-07-28 23:00 | PTCARENOTE ---
Patient A+A+Ox3. No neurological deficits noted. Patient assisted OOB to chair with assist x1 without difficulty. Condom catheter removed. Patient given CHG bath and linens changed. Right groin intact. Right Pleural chest tube - 10 ml red
drainage. Afebrile. IV Dilaudid 0.25 mg for pain management. Patient resting in chair. Assessment as documented.
--- NOTE | 2024-07-29 01:00 | PTCARENOTE ---
Patient assisted back to bed. Patient now sleeping without difficulty. Assessment/Interventions as documented.
[2024-07-29 03:30] VITALS: BP 127/87
[2024-07-29] MEDS: TORADOL 15 MG IV ×3 (03:39→23:23)
[2024-07-29 04:13] LABS: Hematocrit 36.2 % (39.0-52.0); Hemoglobin 12.4 g/dL (13.0-18.0); Mean Corp Hgb Conc. 34.3 g/dL (33.0-37.0); Mean Corpuscular Volume 87.7 fL (80.0-94.0); Platelet Count 168 10^3/uL (130-400); Red Blood Cell Count 4.13 10^6/uL (4.70-6.10); Red Cell Dist. Width 13.6 % (11.5-14.5)
--- NOTE | 2024-07-29 04:34 | RESPNOTE ---
RT checked with [facility] PA about BIPAP for HS use for this PT for tonight and PA stated that the PT refused to wear for tonight. Will keep and eye on vitals for the night and will attempt placement again tomorrow.
[2024-07-29 04:39] LABS: Blood Urea Nitrogen 25 mg/dl (9-20); Calcium 8.7 mg/dl (8.4-10.2); Carbon Dioxide 28 mmol/L (22-30); Chloride 99 mmol/L (98-107); Estimated Creatinine Clearance > 125 ml/min; Glucose 130 mg/dl (70-99); Magnesium 2.2 mg/dl (1.6-2.3); Potassium 4.8 mmol/L (3.5-5.1); Sodium 134 mmol/L (135-145); eGFR > 60.00
[2024-07-29 04:46] LABS: Vancomycin Random 8.6 ug/ml
[2024-07-29 06:00] VITALS: BMI 35.8
[2024-07-29] MEDS: VANCOCIN 535 MG IV ×2 (06:14→17:08)
[2024-07-29] MEDS: ANCEF 5 IV (06:14)
[2024-07-29] MEDS: TYLENOL 1000 MG PO ×3 (06:14→22:20)
--- NOTE | 2024-07-29 06:30 | PTCARENOTE ---
Patient A+A+Ox3. No neurological deficits noted. Right Pleural chest tube intact - No air leak, tidaling or crepitus noted. Right lateral Aquacell dressing intact. Chest tube dressing intact. Right groin dressing intact - No hematoma, bleeding
or oozing noted - Positive circulation, sensation and mobility to right lower extremity. Assessment/Interventions as documented.
--- NOTE | 2024-07-29 06:42 | W.PN.CT ---
Addendum entered and electronically signed by Juan Meraz MD 07/29/24 16:00:
I saw and examined the patient.
The PA's note was reviewed and I agree with the note.
Comment:
Mr. Giraldo is doing extremely well status post his removal of retained sponge via right anterolateral minithoracotomy with VATS assistance.
DC chest tube
Out of bed, I-S, ambulate
Pain control as needed
Perioperative antibiotics, follow-up operative cultures, no growth to date
Discharge planning for potentially tomorrow
Original Note:
Today's Communication / Plan
-
-pod #1
-no issues overnight
-R CT output: in 12/24 hrs, no air leak
-Ancef/Vanco iv periop
-follow cultures from OR
-wbc nl on 07/27, Tm 98.7 in 24 hrs- follow
-follow CXR
-current meds (Ancef, Vanco, Lipitor, Amio 200 qhs, Lopressor, Flomax, iron, vit C). Pt was on Eliquis preop for paf
-encourage IS, OOB
Assessment / Plan
-
- s/p Minimally-invasive, RIGHT anterolateral thoracotomy; VATS-assisted removal of retained surgical sponge from lateral RA/SVC junction on 07/28/[address] Meraz, pod #1
- hx severe /bicuspid AV/Ao root dilatation- s/p AVR #25 Inspiris RESILIA and ascending aortic replacement with a #30 mm Hemashield graft with Dr. Meraz, 05/18/24 (discharged 05/24/24)
- Readmitted 05/29-06/01 for atrial fibrillation and BRBPR d/t hemorrhoids- tx with Toprol, Eliquis (CHADs-VASc score 1)
- Large pericardial effusion on echocardiogram- was admitted for Eliquis washout and underwent pericardiocentesis on 07/20 for 700cc. Eliquis was resumed and last dose confirmed by patient was 07/24 in the morning.
- Paroxysmal a-fib- on Eliquis, Amio, and Lopressor preop
- Chronic RBBB
- HTN/HLD
- Prediabetes (HgA1c 6.1)
- Class 3 obesity (BMI 35)
- Preop anemia (H/h 12.0/35.5 on 07/21/24)
- Hx herpes - on chronic suppression therapy with Valtrex
- BPH
- Hx testicular CA
- Covid 2019
- Nonsmoker
- ROBERT - new to CPAP
- Chest CT on 07/27/24:
-No acute disease of the chest.
-Findings suggesting retained foreign body as described above.
-Small to moderate pericardial effusion
-Cardiac postsurgical change.
-Stable 4 mm pleural-based left lower lobe pulmonary nodule. Continued surveillance recommended.
-Decreased probable exophytic left thyroid nodule. Again, this would better be evaluated by dedicated thyroid ultrasound if not previously performed
Discussed patient care with: Nursing and Care Team
Subjective
-
Date of Service: July 29, 2024
Objective Data
-
PT 14.9 Sec (11.4-14.6) H 07/28/24 11:34
INR 1.19 07/28/24 11:34
APTT 26.7 Sec (23.4-35.0) 07/28/24 11:34
Vital Signs
Vital Signs
Temp Pulse Resp BP Pulse Ox
98.5 F 67 16 111/71 96
07/28/24 22:50 07/28/24 23:40 07/28/24 22:50 07/28/24 22:57 07/28/24 22:50
CT Intake/Output/Weight
07/28/24 07/28/24 07/29/24
06:59 18:59 06:59
Intake Total 250 / 950 1585 / 2092.5 507.5 / 2091.5
Output Total 780 / 1495 715 / 1495
Balance 250 / 950 805 / 597.5 -207.5 / 597.5
SaO2: 96
Physical Exam
-
General: Awake and AOx3
Cardiovascular: Regular rate & rhythm, No Murmurs and No Rub
Respiratory: Rales (at bases. No wheeze) and Decreased Breath Sounds
Sternum: Stable
Incision: Clean, Dry and Dressing Intact
Extremities: No Edema (R DP 1+ and L DP 2+ palpable b/l)
Data Reviewed
-
Lab Results: Results Reviewed
Medications: Active Meds Reviewed
Chest X-Ray: Report Reviewed and Image Reviewed
ECG: Report Reviewed and Image Reviewed
[2024-07-29] MEDS: CLARITIN 10 MG PO (07:36)
[2024-07-29] MEDS: VITAMIN C 1000 MG PO (07:36)
[2024-07-29] MEDS: THERAGRAN 1 TABLET PO (07:36)
[2024-07-29] MEDS: LOPRESSOR 12.5 MG PO ×2 (07:36→19:50)
[2024-07-29] MEDS: VALTREX 500 MG PO (07:36)
[2024-07-29] MEDS: SENOKOT 8.6 MG PO (07:36)
[2024-07-29] MEDS: MIRALAX 17 GRAMS PO (07:37)
[2024-07-29] MEDS: FEOSOL 325 MG PO (07:37)
[2024-07-29] MEDS: LIDOCAINE 4% PATCH 1 PATCH TOPICAL (07:37)
[2024-07-29] MEDS: NEURONTIN 100 MG PO ×3 (07:37→22:20)
[2024-07-29 08:00] VITALS: BP 136/72
--- NOTE | 2024-07-29 08:05 | PTCARENOTE ---
pt aaox3 states 2/10 pain at chest tube site did not want pain med at this time. 2lnc pt asked to remain on o2 for comfort. nsr seen on monitor. right chest tube to wall suction as documented.
--- NOTE | 2024-07-29 08:23 | W.PN.ANS.POP ---
Anesthesia Post Operative
- Anesthesia Post Op Note
Vital Signs Stable-See Nursing Note: Yes
Airway Patent: Yes
Adequate Pain Control: Yes
Change in Mental Status: No
Current Postoperative Nausea & Vomiting: No
Anesthesia Complications: No
General Anesthetic Recall: No
Unplanned Admission: No
Post Op Hydration Adequate: Yes
- -
Pt awake and alert, resting comfortably with no anesthesia related c/o at time of post op visit. VSS
--- NOTE | 2024-07-29 08:35 | PHA.VAN.FU ---
Vancomycin Assessment / Plan
- Assessment
Renal Function: Stable
WBC's are: Trending Up
In the past 24 hrs, patient has been: Afebrile
- Assessment - Therapeutic Drug Monitoring
Random level drawn ~10H after 1st maintenance dose - unclear indication for random level and patient not at steady state yet so would not expect level to be therapeutic
- Dosing Plan
Continue: Vanc 1750mg Q12H
- Monitoring Plan
No level(s) ordered at this time: consider levels in next few days
- Follow Up
Pharmacy will continue to follow.
Vancomycin Follow UP
- -
Patient Age: 68
Patient Sex: Male
Vancomycin Day #: 2
Indication: Prophylaxis (Surg,Hiv,...) (foreign body removal)
Requesting Provider: Estelita Stratton
Pertinent Antimicrobial Allergies:
azithromycin - nausea
erythromycin - nausea; childhood
penicillins - rash; childhood; tolerates cephalexin
sulfonamide antibiotics - rash; childhood
Height / Weight:
Height 5 ft 11 in
Actual Weight 116.5 kg
Pertinent Past Medical History: BMI ~35
- Vital Signs / Lab Results
Temp Pulse Resp BP Pulse Ox
97.9 F 66 18 136/72 96
07/29/24 08:00 07/29/24 08:00 07/29/24 08:00 07/29/24 08:00 07/29/24 08:04
Lab Results - Hematology
07/27/24 07/28/24 07/29/24
10:02 11:34 03:59
WBC 6.3 9.1 12.0 H
Lab Results - Chemistry
07/27/24 07/28/24 07/29/24
10:02 11:34 03:59
BUN 30 H 22 H 25 H
Creatinine 0.7 0.6 L 0.7
Estimated Creat Clear > 125 > 125 > 125
Albumin 3.6
Microbiology Results
07/28/24 09:33 Gram Stain - Final
Chest - Right
Therapeutic Drug Monitoring
Random Vancomycin 8.6 ug/ml 07/29/24 03:59
--- NOTE | 2024-07-29 10:20 | PTCARENOTE ---
chest tube removed sutures in place dressing c/d/i. 1 hour post pt resting no complaints of pain or sob. 95% on 2lnc. breath sounds heard throughout.
--- NOTE | 2024-07-29 11:38 | CM ---
CM following for DC planning needs.
Patient is POD#1; he reports that he is feeling well. He is hopeful for DC soon.
Plan is for home w/ CT Transitional Care RN.
CM to follow.
[2024-07-29] MEDS: LASIX 40 MG IV (11:58)
[2024-07-29 12:01] VITALS: BP 113/73
--- NOTE | 2024-07-29 12:04 | PTCARENOTE ---
pt oob in chair. room air 95%.
[2024-07-29 15:28] VITALS: BP 114/73
[2024-07-29 19:48] VITALS: BP 129/81
[2024-07-29] MEDS: SENOKOT PO (19:50)
--- NOTE | 2024-07-29 21:00 | RESPNOTE ---
PT was asked if he would be able to tolerate BIPAP therapy as ordered for HS use and stated that he would not be wearing BIPAP while in the hospital and would only accept nasal O2 for HS. PT also stated that RT could take the machine form the
bedside bc he would not be needing it. Machine left at the BS on .
--- NOTE | 2024-07-29 21:33 | PTCARENOTE ---
Assumed care of pt from dayshift RN. Walking rounds completed. Pt AAOx3. Pleasant. OOB to the chair. Pt SR on the tele monitor. HR 70s. BP stable. Palpable pulses throughout. Pt on RA. POX 96%. CT dressing CDI. Deep breathing and IS encouraged.
Abdomen soft/nontender. Pt voiding as needed without issue. Right upper/lateral Aquacel CDI. Right groin puncture site dressing CDI. PIVx1 intact and flushes. No c/o pain at this time. See worklist for full nursing assessment and interventions. Call
velasquez within reach.
[2024-07-29 22:20] VITALS: BP 119/80
[2024-07-29] MEDS: PACERONE 200 MG PO (22:20)
[2024-07-29] MEDS: FLOMAX 0.4 MG PO (22:20)
[2024-07-29] MEDS: LIPITOR 40 MG PO (22:20)
[2024-07-30 00:09] VITALS: BP 117/73
--- NOTE | 2024-07-30 00:12 | PTCARENOTE ---
No acute changes in assessment. Pt SR on the tele monitor. HR 60s. BP stable. Pt placed on 2 L NC per pt request. POX 98%. Pt OOB to void as needed. All surgical sites stable. No c/o pain. Call velasquez within reach.
--- NOTE | 2024-07-30 03:06 | W.PN.CT ---
Addendum entered and electronically signed by Juan Meraz MD 07/30/24 07:46:
I saw and examined the patient.
The PA's note was reviewed and I agree with the note.
Comment:
Doing well, ambulating without difficulties.
Excited for discharge today
Check two-view chest x-ray
Consider discharge with monitoring to confirm resolution of atrial fibrillation and subsequent DC of Eliquis
Original Note:
Today's Communication / Plan
-
-pod #2
-doing well, no issues overnight, ambulates without difficulty, no complaints, wants to go home
-follow 2v-CXR today
-follow cultures- no growth so far. Tm 98.5, wbc nl 10.0
-in NSR high 50s-low 60s overnight
-eventually, restart Eliquis for paf
-encourage IS, ambulate
-possible d/c home
Assessment / Plan
-
- s/p Minimally-invasive, RIGHT anterolateral thoracotomy; VATS-assisted removal of retained surgical sponge from lateral RA/SVC junction on 07/28/[address] Meraz, pod #2
- hx severe /bicuspid AV/Ao root dilatation- s/p AVR #25 Inspiris RESILIA and ascending aortic replacement with a #30 mm Hemashield graft with Dr. Meraz, 05/18/24 (discharged 05/24/24)
- Readmitted 05/29-06/01 for atrial fibrillation and BRBPR d/t hemorrhoids- tx with Toprol, Eliquis (CHADs-VASc score 1)
- Large pericardial effusion on echocardiogram- was admitted for Eliquis washout and underwent pericardiocentesis on 07/20 for 700cc. Eliquis was resumed and last dose confirmed by patient was 07/24 in the morning.
- Paroxysmal a-fib- on Eliquis, Amio, and Lopressor preop
- Chronic RBBB
- HTN/HLD
- Prediabetes (HgA1c 6.1)
- Class 3 obesity (BMI 35)
- Preop anemia (H/h 12.0/35.5 on 07/21/24)
- Hx herpes - on chronic suppression therapy with Valtrex
- BPH
- Hx testicular CA
- Covid 2019
- Nonsmoker
- ROBERT - new to CPAP
- Chest CT on 07/27/24:
-No acute disease of the chest.
-Findings suggesting retained foreign body as described above.
-Small to moderate pericardial effusion
-Cardiac postsurgical change.
-Stable 4 mm pleural-based left lower lobe pulmonary nodule. Continued surveillance recommended.
-Decreased probable exophytic left thyroid nodule. Again, this would better be evaluated by dedicated thyroid ultrasound if not previously performed
Discussed patient care with: Nursing and Care Team
Subjective
-
Date of Service: July 30, 2024
Objective Data
-
PT 14.9 Sec (11.4-14.6) H 07/28/24 11:34
INR 1.19 07/28/24 11:34
APTT 26.7 Sec (23.4-35.0) 07/28/24 11:34
Vital Signs
Vital Signs
Temp Pulse Resp BP Pulse Ox
98.3 F 61 16 117/73 98
07/30/24 00:09 07/30/24 00:10 07/30/24 00:09 07/30/24 00:09 07/30/24 00:09
CT Intake/Output/Weight
07/29/24 07/29/24 07/30/24
06:59 18:59 06:59
Intake Total 775.0 / 2360.0 1150 / 1150
Output Total 1315 / 2250 155 / 155
Balance -540.0 / 110.0 995 / 995
SaO2: 98
Physical Exam
-
General: Awake and AOx3
Cardiovascular: Regular rate & rhythm, No Murmurs and No Rub
Respiratory: Decreased Breath Sounds
Sternum: Stable
Incision: Clean, Dry and Dressing Intact
Extremities: Other (trace haydee b/l)
Abdomen: soft, nontender, nondistended, no nausea, + bowel sounds
Data Reviewed
-
Lab Results: Results Reviewed
Medications: Active Meds Reviewed
Chest X-Ray: Report Reviewed and Image Reviewed
ECG: Report Reviewed and Image Reviewed
[2024-07-30 03:41] VITALS: BP 119/76
[2024-07-30 03:51] LABS: Hematocrit 33.8 % (39.0-52.0); Hemoglobin 11.5 g/dL (13.0-18.0); Mean Corpuscular Hgb 29.7 pg (27.0-31.0); Mean Corpuscular Volume 87.3 fL (80.0-94.0); Platelet Count 150 10^3/uL (130-400); Red Blood Cell Count 3.87 10^6/uL (4.70-6.10); Red Cell Dist. Width 13.7 % (11.5-14.5)
--- NOTE | 2024-07-30 04:00 | PTCARENOTE ---
No acute changes in assessment. Pt SR on the tele monitor. HR 60s. BP stable. Pt on 2 L NC. POX 95%. All surgical sites stable. Pt OOB to void as needed. Labs drawn and sent. No c/o pain at this time. Call velasquez within reach.
[2024-07-30 04:15] LABS: Blood Urea Nitrogen 24 mg/dl (9-20); Calcium 8.8 mg/dl (8.4-10.2); Carbon Dioxide 30 mmol/L (22-30); Chloride 102 mmol/L (98-107); Estimated Creatinine Clearance > 125 ml/min; Glucose 88 mg/dl (70-99); Magnesium 2.2 mg/dl (1.6-2.3); Potassium 4.4 mmol/L (3.5-5.1); Sodium 138 mmol/L (135-145); eGFR > 60.00
[2024-07-30 06:00] VITALS: BMI 35.5
[2024-07-30] MEDS: TORADOL 15 MG IV (06:09)
[2024-07-30] MEDS: TYLENOL 1000 MG PO (06:10)
[2024-07-30] MEDS: VANCOCIN 535 MG IV (06:10)
--- NOTE | 2024-07-30 08:14 | W.DCSUMMARY ---
Discharge Summary
Discharge Data
Date of Admission: 07/27/24
Date of Discharge: 07/30/24
-
Pending Results: No
Hospital Course
Primary care physician: Kobe Meyer
Outpatient fruit loader machine operator: Aashish Avila
Inpatient consultants: N/A
Procedures:
1. VATS-assisted removal of retained surgical sponge from lateral RA/SVC junction
Primary Diagnosis:
1. Retained foreign body
Secondary Diagnoses:
1. Bicuspid aortic valvle/aortic stenosis/ascending aortic aneurysm s/p AVR #25 Inspiris RESILIA)/Ascending aortic replacement (30mm Hemashield Clarion Graft), by Dr. Meraz, 05/18/24
2. Chronic right bundle branch block
3. Hypertension
4. Hyperlipidemia
5. Prediabetes (hemoglobin A1c 6.1)
6. Class 2 obesity (body mass index 35.6) 7. -Obstructive sleep apnea noncompliant with continuous positive airway pressure
7. Benign prostatic hyperplasia
8. History testicular cancer
9 Seasonal allergies
10. Hx post-op atrial fibrillation
11. Hx Hemorrhoidal gastrointestinal bleed
12. Hx pericardial effusion s/p pericardiocentesis
HPI: 68-year-old male known to CT service from recent AVR/ascending aorta replacement who experienced readmission for rapid treated with Eliquis and subsequent pericardial effusion treated with cardiocentesis. Review of the case was
conducted by Dr. Meraz who identified foreign body retained in mediastinal space. Patient notified by Dr. Meraz to return to hospital for removal of retained foreign body. Last dose of Eliquis was on Friday, July 26, 2024.
Hospital course: Patient was admitted on 07/[address] chest to delineate anatomy in relation to retained foreign body. Patient underwent VATS-assisted removal of retained surgical sponge from lateral RA/SVC junction on 07/[address] Martinez
Kt. Patient is extubated in the operating room and groin sheath removed. On postoperative day #1, the right pleural chest tube was removed and 40mg IV Lasix given. Patient remained in sinus rhythm since admission to hospital and discussion
between Drs. Alegria and Kt resulted in decision to withhold further Eliquis. Rhythm Star monitor ordered by cardiology office and patient instructed to go to [facility] cardiology office immediately after discharge for fitting of heart monitor.
Home medication changes:
Stop Eliquis, Colchicine, Ibuprofen
Discharge Plan
-
Patient Disposition: Home (Routine Discharge)
Discharge Diagnosis/Procedures: retained foreign body/removal of foreign body
Condition: Good
Diet: Low Cholesterol
Activity: No strenuous activity
Driving Restrictions: Not until seen by your Dr
Bathing Restrictions: OK to Shower
Other Services: Cardiac Rehab
Activity Restrictions/Additional Instructions:
weigh daily-call MD lucy rosenthalt gain of 3 pounds overnight or 5 pounds in 1 week
Referrals:
CT Transitional Care Nurse [Outside]
Aashish Avila DO [Active] - 09/18/24 9:00 am
Juan Meraz MD [Active] - 09/01/24 2:00 pm
UNKNOWN - PT NOT,INTERVIEWE [Family Provider] -
Prescriptions:
New
cyclobenzaprine 10 mg Tablet
5 mg PO Q8HPRN PRN (Reason: muscle spasm) Qty: 20 0RF
gabapentin 100 mg Capsule
100 mg PO TID Qty: 30 0RF
Continued
fexofenadine 180 MG tablet
180 mg PO DAILY
phenylephrine HCl [Sudafed PE] 10 MG tablet
10 mg PO BID
atorvastatin 40 MG tablet
40 mg PO HS
valacyclovir 500 MG tablet
500 mg PO DAILY
tamsulosin 0.4 mg Capsule
0.4 mg PO HS
Centrum Silver 0.4 mg-300 mcg- 250 mcg Tablet
1 tab PO DAILY
coenzyme Q10 [Co Q-10] 200 mg Capsule
200 mg PO HS
omega 0-sun-wvy-fish oil [Fish Oil] 1,200 (144-216) mg Capsule
1 cap PO DAILY
ferrous sulfate [FeroSul] 325 mg (65 mg iron) Tablet
325 mg PO DAILY Qty: 30 0RF
metoprolol succinate 25 mg Tablet Extended Release 24 Hr
12.5 mg PO BID
amiodarone [Pacerone] 200 mg tablet
200 mg PO HS
ascorbic acid (vitamin C) [Vitamin C] 500 mg Tablet
1,000 mg PO DAILY Qty: 30 0RF
Discontinued
colchicine 0.6 mg Tablet
0.6 mg PO BID
ibuprofen 200 mg capsule
600 mg PO TID
Eliquis 5 mg tablet
5 mg PO BID
Discharge Orders:
Discharge Patient (As Directed); Ordered 07/30/24
Ordered By: Aleyda Cuba
Care Plan Goals
Care Plan Goals:
Problem: Readiness for enhanced knowledge related to diagnosis and treatment plan
Goal: Understand your diagnosis and treatment plan needs, including medications if applicable.
Instructions: Know your diagnosis, underlying causes and treatment plan options, including medications if applicable. Consult with your health care team to learn about your diagnosis and treatment plan, including medications if applicable.
Discharge Date and Time
Print Language: SLOVENIAN
[2024-07-30 09:18] VITALS: BP 119/64
[2024-07-30] MEDS: CLARITIN 10 MG PO (09:20)
[2024-07-30] MEDS: SENOKOT 8.6 MG PO (09:20)
[2024-07-30] MEDS: VITAMIN C 1000 MG PO (09:20)
[2024-07-30] MEDS: NEURONTIN 100 MG PO (09:21)
[2024-07-30] MEDS: VALTREX 500 MG PO (09:21)
[2024-07-30] MEDS: THERAGRAN 1 TABLET PO (09:21)
[2024-07-30] MEDS: LIDOCAINE 4% PATCH 1 PATCH TOPICAL (09:22)
[2024-07-30] MEDS: FEOSOL 325 MG PO (09:22)
[2024-07-30] MEDS: MIRALAX PO (09:22)
[2024-07-30] MEDS: LOPRESSOR 12.5 MG PO (09:27)
--- NOTE | 2024-07-30 11:14 | CM ---
CM following for DC planning needs.
Plan is for DC to home w/ CT Transitional Care RN.
[2024-07-30 12:00] VITALS: BP 119/73
== END 2024-07-30 12:50 | disposition home or self-care (01) | DRG 908 ==
LOC: CVICU 08:57
PROVIDERS: Clinical Nurse Specialist Acute Care; Nurse Practitioner; Physician Assistant Medical; ADMITTING PHYSICIAN Thoracic Surgery (Cardiothoracic Vascular Surgery)
PROC: 0WCD0ZZ Extirpation of Matter from Pericardial Cavity, Open Approach (ICD-10-PCS; 2024-07-28)
DX: T81.590A Other complications of foreign body accidentally left in body following surgical operation, initial encounter (principal); I31.39 Other pericardial effusion (noninflammatory); E78.00 Pure hypercholesterolemia, unspecified; R73.03 Prediabetes; I45.10 Unspecified right bundle-branch block; N40.0 Benign prostatic hyperplasia without lower urinary tract symptoms; Y83.2 Surgical operation with anastomosis, bypass or graft as the cause of abnormal reaction of the patient, or of later complication, without mention of misadventure at the time of the procedure; I10 Essential (primary) hypertension; G47.33 Obstructive sleep apnea (adult) (pediatric); E66.01 Morbid (severe) obesity due to excess calories; I48.0 Paroxysmal atrial fibrillation; J30.2 Other seasonal allergic rhinitis; Z68.37 Body mass index [BMI] 37.0-37.9, adult; Z79.01 Long term (current) use of anticoagulants; Z79.899 Other long term (current) drug therapy; Z85.47 Personal history of malignant neoplasm of testis; Z91.199 Patient's noncompliance with other medical treatment and regimen due to unspecified reason; Z95.3 Presence of xenogenic heart valve
CPT/HCPCS: 71045; 71046; 71270; 80048; 80053; 80202; 81003; 82330; 82805; 83735; 84132; 84302; 85027; 85610; 85730; 86850; 86900; 86901; 86920; 87070; 87075; 87205; 93005; 93306; Q9967

== ENCOUNTER → 2024-08-21 08:27 | Outpatient (REF) | payer MEDICARE, SELFPAY | LOC: HWRAD 08:27 | PROVIDERS: ATTENDING PHYSICIAN Physician Assistant | DX: E04.1 Nontoxic single thyroid nodule (principal) | CPT/HCPCS: 76536 ==

== ENCOUNTER 2024-08-31 15:00 | Outpatient (RCR) | payer MEDICARE, SELFPAY | END 2024-08-31 23:59 | disposition home or self-care (01) | LOC: CRHB 15:00 | PROVIDERS: ATTENDING PHYSICIAN Internal Medicine Cardiovascular Disease; FAMILY PHYSICIAN Family Medicine | DX: Z95.2 Presence of prosthetic heart valve (principal) | CPT/HCPCS: G0422; G0423 ==

== ENCOUNTER 2024-09-30 15:27 | Outpatient (RCR) | payer MEDICARE, SELFPAY | END 2024-09-30 23:59 | disposition home or self-care (01) | LOC: CRHB 15:27 | PROVIDERS: ATTENDING PHYSICIAN Internal Medicine Cardiovascular Disease; FAMILY PHYSICIAN Family Medicine | DX: Z95.2 Presence of prosthetic heart valve (principal) | CPT/HCPCS: G0422; G0423 ==

== ENCOUNTER 2024-10-30 09:36 | Outpatient (RCR) | payer MEDICARE, SELFPAY ==
[2024-10-30 09:39] LABS: HDL Cholesterol 53 mg/dl; LDL Cholesterol, Calculated 85 mg/dl; Total Cholesterol 156 mg/dl (50-199); Triglyceride 92 mg/dl (10-149); Very Low Density Lipoprotein 18 mg/dl (0-30)
== END 2024-10-30 23:59 | disposition home or self-care (01) ==
LOC: CRHB 09:36
PROVIDERS: ATTENDING PHYSICIAN Internal Medicine Cardiovascular Disease; FAMILY PHYSICIAN Family Medicine
DX: Z95.2 Presence of prosthetic heart valve (principal)
CPT/HCPCS: 36415; 80061; G0422; G0423

== ENCOUNTER → 2025-06-02 13:22 | Outpatient (REF) | payer MEDICARE, SELFPAY | LOC: HWRAD 13:22 | PROVIDERS: ATTENDING PHYSICIAN Nurse Practitioner Family; FAMILY PHYSICIAN Family Medicine | DX: R91.1 Solitary pulmonary nodule (principal) | CPT/HCPCS: 71250 ==

== ENCOUNTER → 2025-09-01 14:39 | Outpatient (REF) | payer MEDICARE, SELFPAY | LOC: HWRCS 14:39 | PROVIDERS: ATTENDING PHYSICIAN Internal Medicine Cardiovascular Disease; FAMILY PHYSICIAN Family Medicine | DX: Z95.2 Presence of prosthetic heart valve (principal) | CPT/HCPCS: 93306 ==